=== PATIENT | female | born 1950 | race Caucasian/White ===

== ENCOUNTER 2016-11-01 01:31 | Inpatient (IN) | payer OTHER ==
[2016-11-01] VITALS (9 sets, daily range): BP systolic 93–140; BP diastolic 58–76; PULSE 55–67; TEMP 36.6–37; O2SAT 94–98; Ht 157.5 cm; Wt 74.6 kg
[~2016-11-01] VITALS: Ht 157.5 cm; Wt 74.6 kg
[2016-11-01] MEDS ORDERED: ONDANSETRON INJ 2 MG/ML 2 ML VIAL IV STA (02:03)
[2016-11-01] MEDS ORDERED: LISI-725 PO (02:03)
[2016-11-01] MEDS ORDERED: LOVA40TA4 PO (02:03)
[2016-11-01] MEDS ORDERED: KETOROLAC TROMETHAMINE 30 MG/ML VIAL IV STA (02:03)
[2016-11-01] MEDS ORDERED: GLIP-199 PO (02:03)
[2016-11-01] MEDS ORDERED: METF-384 PO (02:03)
[2016-11-01] MEDS ORDERED: SODIUM CHLORIDE 0.9% 1000ML 1,000 ML IV STA (02:04)
--- NOTE | 2016-11-01 02:11 | EMERGENCY ROOM VISIT NOTE ---
History Report prepared by Sarmad: Chris Mendez Under the Supervision of: Dr. Jayde Cordova D.O. First contact with patient: 01:54 Chief Complaint: FLU LIKE SX Stated Complaint: FLU History of Present Illness The patient is a 66 year old female who presents to the Emergency Room with complaints of a cough that began 2 weeks ago. At this time, the patient's grandson came to visit, and he had the "sniffles." Both the patient and her got sick. It progressed into a hacking productive cough and rhinorrhea. Today, she woke up with chills and diaphoresis. She then began to feel nauseated and have episodes of diarrhea. Before arrival into the ED tonight, she had 1 episode of emesis. She denies any past bronchitis, pneumonia, COPD, or inhaler use. She has a medical history of diabetes, hypertension, and hyperlipidemia. She has been eating and drinking normally. She denies any chest pain. She is also experiencing abdominal tenderness diffusely and neck pain. Source of History: patient Onset: 2 weeks ago Position: other (Respiratory System) Symptom Intensity: moderate Quality: other (Cough) Timing: other (Persistent) Associated Symptoms: + chills, + diaphoresis, + neck pain, + nausea, + vomiting, + abdominal pain, + diarrhea, No chest pain Review of Systems See HPI for pertinent positives & negatives. A total of 10 systems reviewed and were otherwise negative. Past Medical & Surgical Medical Problems: (1) Cough (2) Diabetes (3) HLD (hyperlipidemia) (4) HTN (hypertension) (5) Hypotension Family History Omitted secondary to the patient's age. Social History Smoking Status: Current Every Day Smoker Smokeless Tobacco Use: No Drug Use: none Marital Status: Housing Status: lives with significant other Current/Historical Medications Scheduled Glipizide (Glipizide Er), 5 MG PO DAILY Lisinopril (Zestril), 20 MG PO DAILY Lovastatin (Mevacor), 1 TAB PO DAILY Metformin Hcl (Glucophage), 1,000 MG PO BID Allergies Coded Allergies: No Known Allergies (Unverified , 11/01/16) Physical Exam Vital Signs Date Time Temp Pulse Resp B/P (MAP) Pulse Ox O2 Delivery O2 Flow Rate FiO2 11/01/16 04:31 116/67 11/01/16 04:30 59 21 98 8/28/17 04:01 113/59 11/01/16 04:00 65 18 97 11/01/16 03:31 90/52 11/01/16 03:30 61 20 96 11/01/16 03:20 61 18 96/51 96 Room Air 11/01/16 02:25 64 11/01/16 02:20 64 24 97 11/01/16 02:01 95 Room Air 11/01/16 02:01 81/54 11/01/16 01:49 70 18 106/61 96 Room Air 11/01/16 01:34 36.5 81 20 77/51 95 Room Air Physical Exam HEENT: Head - normocephalic and atraumatic Pupils are equal, round, and reactive to light. Extraocular eye muscles are intact, and sclera are anicteric. Nose - moist nasal mucosa without discharge. Mouth - moist buccal mucosa. Oropharynx is nonerythematous and there is no tonsillar exudate or edema noted. Neck: Supple; no JVD, nuchal rigidity, cervical lymphadenopathy. Heart: Regular rate and rhythm. There is a normal S1 and S2 with no murmurs, clicks, or gallops appreciated. Lungs: Clear to auscultation bilaterally with no wheezes, rales, or rhonchi. Abdomen: Soft, diffuse abdominal tenderness, nondistended, with good bowel sounds. There are no palpable pulsatile masses or hepatosplenomegaly. There is no guarding, rigidity, or rebound noted. Extremities: No evidence of cyanosis, clubbing, or edema. There are easily palpable peripheral pulses. Skin: warm and diaphoretic and pale with good turgor and no rashes. Medical Decision & Procedures ER Provider Diagnostic Interpretation: Radiology results as stated below per my review and the radiologist's interpretation: CHEST 1 VIEW: No pulmonary infiltrates or pleural effusions appreciated. Questionable pulmonary nodule in the left lung base. Per me Laboratory Results 11/01/16 02:15 Red Blood Count 3.49, Mean Corpuscular Volume 91.1, Mean Corpuscular Hemoglobin 30.1, Mean Corpuscular Hemoglobin Concent 33.0, Mean Platelet Volume 9.7, Neutrophils (%) (Auto) 79.0, Lymphocytes (%) (Auto) 15.7, Monocytes (%) (Auto) 3.7, Eosinophils (%) (Auto) 1.0, Basophils (%) (Auto) 0.1, Neutrophils # (Auto) 9.83, Lymphocytes # (Auto) 1.96, Monocytes # (Auto) 0.46, Eosinophils # (Auto) 0.13, Basophils # (Auto) 0.01 11/01/16 02:15 Test 11/01/16 02:14 11/01/16 02:15 11/01/16 03:41 Bedside Lactic Acid Venous 1.53 mmol/L (0.90-1.70) White Blood Count 12.45 K/uL (4.8-10.8) Red Blood Count 3.49 M/uL (4.2-5.4) Hemoglobin 10.5 g/dL (12.0-16.0) Hematocrit 31.8 % (37-47) Mean Corpuscular Volume 91.1 fL (80-100) Mean Corpuscular Hemoglobin 30.1 pg (25-34) Mean Corpuscular Hemoglobin Concent 33.0 g/dl (32-36) Platelet Count 330 K/uL (130-400) Mean Platelet Volume 9.7 fL (7.4-10.4) Neutrophils (%) (Auto) 79.0 % Lymphocytes (%) (Auto) 15.7 % Monocytes (%) (Auto) 3.7 % Eosinophils (%) (Auto) 1.0 % Basophils (%) (Auto) 0.1 % Neutrophils # (Auto) 9.83 K/uL (1.4-6.5) Lymphocytes # (Auto) 1.96 K/uL (1.2-3.4) Monocytes # (Auto) 0.46 K/uL (0.11-0.59) Eosinophils # (Auto) 0.13 K/uL (0-0.5) Basophils # (Auto) 0.01 K/uL (0-0.2) RDW Standard Deviation 45.8 fL (36.4-46.3) RDW Coefficient of Variation 13.8 % (11.5-14.5) Immature Granulocyte % (Auto) 0.5 % Immature Granulocyte # (Auto) 0.06 K/uL (0.00-0.02) Prothrombin Time 11.0 SECONDS (9.0-12.0) Prothromb Time International Ratio 1.0 (0.9-1.1) Activated Partial Thromboplast Time 23.6 SECONDS (21.0-31.0) Partial Thromboplastin Ratio 0.9 Anion Gap 8.0 mmol/L (3-11) Est Creatinine Clear Calc Drug Dose 53.2 ml/min Estimated GFR () 68.5 Estimated GFR (Non- 59.1 BUN/Creatinine Ratio 13.7 (10-20) Calcium Level 7.3 mg/dl (8.5-10.1) Total Bilirubin 0.2 mg/dl (0.2-1) Aspartate Amino Transf (AST/SGOT) 11 U/L (15-37) Alanine Aminotransferase (ALT/SGPT) 14 U/L (12-78) Alkaline Phosphatase 53 U/L (45-117) Total Creatine Kinase 52 U/L (26-192) Creatine Kinase MB 1.2 ng/ml (0.5-3.6) Creatine Kinase MB Ratio 2.3 (0-3.0) Troponin I < 0.015 ng/ml (0-0.045) Total Protein 5.8 gm/dl (6.4-8.2) Albumin 2.6 gm/dl (3.4-5.0) Globulin 3.2 gm/dl (2.5-4.0) Albumin/Globulin Ratio 0.8 (0.9-2) Urine Color DK YELLOW Urine Appearance CLOUDY (CLEAR) Urine pH 5.0 (4.5-7.5) Urine Specific [place] 1.027 (1.000-1.030) Urine Protein TRACE (NEG) Urine Glucose (UA) NEG (NEG) Urine Ketones TRACE (NEG) Urine Occult Blood NEG (NEG) Urine Nitrite NEG (NEG) Urine Bilirubin NEG (NEG) Urine Urobilinogen NEG (NEG) Urine Leukocyte Esterase MODERATE (NEG) Urine WBC (Auto) >30 /hpf (0-5) Urine RBC (Auto) 5-10 /hpf (0-4) Urine Hyaline Casts (Auto) >30 /lpf (0-5) Urine Epithelial Cells (Auto) >30 /lpf (0-5) Urine Bacteria (Auto) 1+ (NEG) Urine Pathogenic Casts /lpf (0) Laboratory results per my review. Medications Administered Medications (Trade) Dose Ordered Sig/Grzegorz Route Start Time Stop Time Status Last Admin Dose Admin Ketorolac Tromethamine (Toradol Inj) 30 mg NOW STAT IV 11/01/16 02:03 11/01/16 02:05 DC 11/01/16 02:13 30 MG Ondansetron HCl (Zofran Inj) 4 mg NOW STAT IV 11/01/16 02:03 11/01/16 02:05 DC 11/01/16 02:12 4 MG Sodium Chloride 1,000 ml @ 999 mls/hr Q1H1M STAT IV 11/01/16 02:04 11/01/16 03:04 DC 11/01/16 02:04 999 MLS/HR Sodium Chloride 500 ml @ 999 mls/hr Q31M STAT IV 11/01/16 03:25 11/01/16 03:55 DC 11/01/16 03:25 999 MLS/HR Piperacillin Sod/ Tazobactam Sod (Zosyn Iv) 4.5 gm NOW STAT IV 11/01/16 03:35 11/01/16 03:37 DC 11/01/16 03:47 4.5 GM Levofloxacin (Levaquin / D5W) 750 mg NOW ONCE IV 11/01/16 03:45 11/01/16 03:46 DC 11/01/16 03:47 750 MG Procedure Zofran Inj 4 mg IV Toradol Inj 30 mg IV Sodium Chloride 1000 ml @ 999 mls/hr IV Sodium Chloride 500 ml @ 999 mls/hr IV. Ordered Zosyn Iv 4.5 gm IV Ordered Levofloxacin 750 mg IV ECG Indication: other (Hypotension) Rate (beats per minute): 73 Rhythm: normal sinus Findings: LBBB, no acute ischemic change, no ectopy ED Course 0154: Past medical records reviewed. The patient was evaluated in room B4. A complete history and physical exam was performed. A septic protocol was performed. A twelve-lead EKG was obtained. 0203: Ordered Zofran Inj 4 mg IV, Toradol Inj 30 mg IV 0204: Ordered Sodium Chloride 1000 ml @ 999 mls/hr IV 0325: Sodium Chloride 500 ml @ 999 mls/hr IV. 0335: Ordered Zosyn Iv 4.5 gm IV. The patient's blood pressure has come up somewhat. She is resting comfortably at this time. 0345: Ordered Levofloxacin 750 mg IV 0438: Upon reevaluation, I discussed findings and results with her. She verbalized agreement of the treatment plan. [facility] The patient will be evaluated for further management and care. Medical Decision For her + situation she is in pain The patient is a 66 year old female who presents to the ED with a productive cough. Differential diagnosis includes sepsis, dehydration, pneumonia, gastroenteritis, meningitis, cardiac ischemia, and hypovolemia. Laboratory Results: White blood cell count of 12.4, hemoglobin 10.5, normal renal function, glucose 195, normal LFTs, normal coagulation studies, lactic acid 1.53, urine is dark yellow and cloudy, trace protein, trace ketones, moderate leukocyte esterase, greater than 30 white blood cells, 1+ bacteria, and greater than 30 epithelial cells. This is a 66-year-old female patient who presents to emergency department after an episode of extreme nausea and diaphoresis this morning. The patient has been suffering from a productive cough over the past couple of weeks. She describes becoming increasingly weak over the past 24 hours. She developed significant diarrhea. She then became extremely weak, diaphoretic, and nauseated. The patient was noted be significantly hypotensive. This could've been secondary to hypovolemia and/or sepsis. The patient was treated with IV crystalloid therapy. She does not have a fever but does have an elevated white blood cell count. The patient is a smoker and could be suffering from an acute lung infection. Chest x-ray was unremarkable. The patient's urine appear to be infected. She was treated with IV Zosyn and IV Levaquin. Blood pressure has rebounded after some crystalloid.[facility] and [facility] for further management. Medication Reconcilliation Current Medication List: was personally reviewed by me Blood Pressure Screening Patient's blood pressure: Low blood pressure Will be addressed as an inpatient. Consults Time Called: [phone] Consulting Physician: Dr. Bedolla - [facility] Returned Call: [phone] Discussed the patient's case. The patient will be evaluated for further management. Impression Primary Impression: Hypotension Additional Impressions: UTI (urinary tract infection) Productive cough Scribe Attestation The scribe's documentation has been prepared under my direction and personally reviewed by me in its entirety. I confirm that the note above accurately reflects all work, treatment, procedures, and medical decision making performed by me. Departure Information Dispostion Being Evaluated By Hospitalist Referrals No Doctor, Assigned (PCP) Patient Instructions My [facility] Problem Qualifiers Primary Impression: Hypotension Hypotension type: unspecified hypotension type Qualified Codes: I95.9 - Hypotension, unspecified Additional Impressions: UTI (urinary tract infection) Urinary tract infection type: acute cystitis Hematuria presence: with hematuria Qualified Codes: N30.01 - Acute cystitis with hematuria
[2016-11-01 02:31] LABS: BASO % 0.1 %; BASO ABS # 0.01 K/uL (0-0.2); COMPLETE YES; HEMATOCRIT 31.8 % (37-47); IG% 0.5 %; LYMPH % 15.7 %; LYMPH ABS # 1.96 K/uL (1.2-3.4); MEAN CELL VOLUME 91.1 fL (80-100); MEAN CORPUSCULAR HEMOGLOBIN 30.1 pg (25-34); MEAN PLATELET VOLUME 9.7 fL (7.4-10.4); MONO % 3.7 %; PLATELET COUNT 330 K/uL (130-400); RED BLOOD COUNT 3.49 M/uL (4.2-5.4); WHITE BLOOD COUNT 12.45 K/uL (4.8-10.8)
[2016-11-01 02:49] LABS: BUN/CREATININE RATIO 13.7 (10-20); CALCIUM 7.3 mg/dl (8.5-10.1); POTASSIUM 3.7 mmol/L (3.5-5.1)
[2016-11-01 02:51] LABS: PARTIAL THROMBOPLASTIN RATIO 0.9
[2016-11-01 02:52] LABS: ALB/GLOB RATIO 0.8 (0.9-2)
[2016-11-01 02:53] LABS: CKMB/CK RATIO 2.3 (0-3.0)
[2016-11-01] MEDS ORDERED: SODIUM CHLORIDE 0.9% 500ML 500 ML IV STA (03:25)
[2016-11-01] MEDS ORDERED: PIPERACILLIN/TAZOBACTAM 4.5 GM/100ML D5W IV STA (03:35)
[2016-11-01] MEDS ORDERED: LEVAQUIN 750MG / 150ML D5W IV ONE (03:45)
[2016-11-01 03:58] LABS: MANUAL MICROSCOPIC REQUIRED? NO; REVIEW REQ? YES; URINE APPEARANCE CLOUDY (CLEAR); URINE COLOR DK YELLOW; URINE EPITHELIAL CELL AUTO >30 /lpf (0-5); URINE NITRITE NEG (NEG); URINE SPECIFIC GRAVITY 1.027 (1.000-1.030); UROBILINOGEN NEG (NEG); ZZUR CULT IF INDIC CLEAN CATCH YES
[2016-11-01 04:00] LABS: URINE BILIRUBIN NEG (NEG)
[2016-11-01] MEDS ORDERED: ACETAMINOPHEN 325 MG TAB PO PRN (04:45)
[2016-11-01] MEDS ORDERED: DEXTROSE 50% 50 ML SYR IV PRN (04:45)
[2016-11-01] MEDS ORDERED: POLYETHYLENE (MIRALAX) 17 GM PACK PO PRN (04:45)
[2016-11-01] MEDS ORDERED: GLUCOSE 10 TABS/TUBE PO PRN (04:45)
[2016-11-01] MEDS ORDERED: NITROGLYCERIN 0.4 MG SL PER TAB CHARGE SL PRN (04:45)
[2016-11-01] MEDS ORDERED: MAGNESIUM HYDROXIDE SUSP 30 ML UDC PO PRN (04:45)
[2016-11-01] MEDS ORDERED: GLUCAGON FOR INJ 1 MG VIAL SQ PRN (04:45)
[2016-11-01] MEDS ORDERED: GLUCOSE 40% GEL 15 GM TUBE PO PRN (04:45)
[2016-11-01] MEDS ORDERED: ALUMINUM/MAGNESIUM/SIMETH (MAALOX MAX) 30 ML UDC PO PRN (04:45)
[2016-11-01] MEDS ORDERED: ONDANSETRON INJ 2 MG/ML 2 ML VIAL IV PRN (04:45)
--- NOTE | 2016-11-01 04:50 | History and Physical ---
History & Physical Date & Time of Service: Nov 01, 2016 at 04:45 Chief Complaint: FLU Primary Care Physician: No Doctor, Assigned History of Present Illness Source: patient this is a 66 yo F with past medical hx of HTN , type 2 Dm , presents to ED with Flu like symptom , viral illness Pt's 2 yo Grandson Had stomach flu , nasal congestion , cough 2 weeks back her had similar symptom 1 week back , now recovering pt started to URI symptom , cough , headache , fatigue, body ache 3-4 days back cough was non productive , associated with sore throat had low grade fever this AM she woke up with cold sweat , felt severely nauseous ,had multiple watery diarrhea pt was brought to ED was hypotensive in ER , tachycardic BP improved with IVF Cxray shows no infiltrate Diarrhea improved , no episode since admission no nausea or abdominal discomfort feels a lot better since getting IVF Past Medical/Surgical History Medical Problems: (1) Diabetes Status: Chronic (2) HLD (hyperlipidemia) Status: Chronic (3) HTN (hypertension) Status: Chronic Social History Smoking Status: Current Every Day Smoker Smokeless Tobacco Use: No Drug Use: none Marital Status: Allergies Coded Allergies: No Known Allergies (Unverified , 11/01/16) Home Medications Scheduled Glipizide (Glipizide Er), 5 MG PO DAILY Lisinopril (Zestril), 20 MG PO DAILY Lovastatin (Mevacor), 1 TAB PO DAILY Metformin Hcl (Glucophage), 1,000 MG PO BID Review of Systems Constitutional: + fever, + chills, + weakness, + fatigue Respiratory: + cough, + sputum, + wheezing, + shortness of breath, + dyspnea on exertion, + dyspnea at rest Abdomen: + pain, + nausea, + vomiting, + diarrhea Musculoskeletal: + joint pain, + muscle pain, + calf pain Neurologic: + numbness/tingling, + vertigo Endocrine: + fatigue Physical Exam Vital Signs Date Time Temp Pulse Resp B/P (MAP) Pulse Ox O2 Delivery O2 Flow Rate FiO2 11/01/16 03:20 61 18 96/51 96 Room Air 11/01/16 02:25 64 11/01/16 02:20 64 24 97 11/01/16 02:01 95 Room Air 11/01/16 02:01 81/54 11/01/16 01:49 70 18 106/61 96 Room Air 11/01/16 01:34 36.5 81 20 77/51 95 Room Air General Appearance: no apparent distress Head: normocephalic, atraumatic Eyes: normal inspection, sclerae normal Neck: supple, no adenopathy, thyroid normal, no JVD, no carotid bruits, trachea midline Respiratory/Chest: chest non-tender, lungs clear, normal breath sounds, no respiratory distress, no accessory muscle use Cardiovascular: regular rate, rhythm Abdomen/GI: normal bowel sounds, non tender, soft Extremities/Musculoskelatal: normal inspection, no calf tenderness, normal capillary refill, no pedal edema Neurologic/Psych: no motor/sensory deficits, alert, normal reflexes, oriented x 3 Skin: normal color, warm/dry, no rash Lymphatic: no adenopathy Diagnostics Laboratory Results Results Past 24 Hours Test 11/01/16 02:14 11/01/16 02:15 11/01/16 03:41 Range/Units Bedside Lactic Acid Venous 1.53 0.90-1.70 mmol/L White Blood Count 12.45 4.8-10.8 K/uL Red Blood Count 3.49 4.2-5.4 M/uL Hemoglobin 10.5 12.0-16.0 g/dL Hematocrit 31.8 37-47 % Mean Corpuscular Volume 91.1 80-100 fL Mean Corpuscular Hemoglobin 30.1 25-34 pg Mean Corpuscular Hemoglobin Concent 33.0 32-36 g/dl Platelet Count 330 130-400 K/uL Mean Platelet Volume 9.7 7.4-10.4 fL Neutrophils (%) (Auto) 79.0 % Lymphocytes (%) (Auto) 15.7 % Monocytes (%) (Auto) 3.7 % Eosinophils (%) (Auto) 1.0 % Basophils (%) (Auto) 0.1 % Neutrophils # (Auto) 9.83 1.4-6.5 K/uL Lymphocytes # (Auto) 1.96 1.2-3.4 K/uL Monocytes # (Auto) 0.46 0.11-0.59 K/uL Eosinophils # (Auto) 0.13 0-0.5 K/uL Basophils # (Auto) 0.01 0-0.2 K/uL RDW Standard Deviation 45.8 36.4-46.3 fL RDW Coefficient of Variation 13.8 11.5-14.5 % Immature Granulocyte % (Auto) 0.5 % Immature Granulocyte # (Auto) 0.06 0.00-0.02 K/uL Prothrombin Time 11.0 9.0-12.0 SECONDS Prothromb Time International Ratio 1.0 0.9-1.1 Activated Partial Thromboplast Time 23.6 21.0-31.0 SECONDS Partial Thromboplastin Ratio 0.9 Sodium Level 141 136-145 mmol/L Potassium Level 3.7 3.5-5.1 mmol/L Chloride Level 114 98-107 mmol/L Carbon Dioxide Level 19 21-32 mmol/L Anion Gap 8.0 3-11 mmol/L Blood Urea Nitrogen 14 7-18 mg/dl Creatinine 1.00 0.60-1.20 mg/dl Est Creatinine Clear Calc Drug Dose 53.2 ml/min Estimated GFR () 68.5 Estimated GFR (Non- 59.1 BUN/Creatinine Ratio 13.7 10-20 Random Glucose 195 70-99 mg/dl Calcium Level 7.3 8.5-10.1 mg/dl Total Bilirubin 0.2 0.2-1 mg/dl Aspartate Amino Transf (AST/SGOT) 11 15-37 U/L Alanine Aminotransferase (ALT/SGPT) 14 12-78 U/L Alkaline Phosphatase 53 45-117 U/L Total Creatine Kinase 52 26-192 U/L Creatine Kinase MB 1.2 0.5-3.6 ng/ml Creatine Kinase MB Ratio 2.3 0-3.0 Troponin I < 0.015 0-0.045 ng/ml Total Protein 5.8 6.4-8.2 gm/dl Albumin 2.6 3.4-5.0 gm/dl Globulin 3.2 2.5-4.0 gm/dl Albumin/Globulin Ratio 0.8 0.9-2 Urine Color DK YELLOW Urine Appearance CLOUDY CLEAR Urine pH 5.0 4.5-7.5 Urine Specific [place] 1.027 1.000-1.030 Urine Protein TRACE NEG Urine Glucose (UA) NEG NEG Urine Ketones TRACE NEG Urine Occult Blood NEG NEG Urine Nitrite NEG NEG Urine Bilirubin NEG NEG Urine Urobilinogen NEG NEG Urine Leukocyte Esterase MODERATE NEG Urine WBC (Auto) >30 0-5 /hpf Urine RBC (Auto) 5-10 0-4 /hpf Urine Hyaline Casts (Auto) >30 0-5 /lpf Urine Epithelial Cells (Auto) >30 0-5 /lpf Urine Bacteria (Auto) 1+ NEG Urine Pathogenic Casts 0 /lpf Microbiology Results 11/01/16 Blood Culture, Received Pending 11/01/16 Blood Culture, Received Pending 11/01/16 Urine Culture, Received Pending Diagnostic Radiology CHEST ONE VIEW PORTABLE HISTORY: Sepsis COMPARISON: None. FINDINGS: The lungs are clear. Cardiac silhouette is normal in size. No pleural effusions. No pneumothorax. IMPRESSION: No acute process. No Infiltrate, No Effusion EKG Vent. rate 73 BPM IN interval 142 ms QRS duration 128 ms QT/QTc 436/480 ms P-R-T axes 61 -28 75 Normal sinus rhythm Left bundle branch block Abnormal ECG No previous ECGs available Impression Assessment and Plan COUGH /FLU LIKE SYMPTOM : had dry non productive cough with low grade fever , nausea , poor appetite for 2 weeks Grand son had similar symptom Cxray no infiltrate , pt is at present fever free , symptom has improved Abx can be discontinued in next 24 hrs if pt continues to do well HYPOTENSION : due to above associated with poor PO intake , dehydration BP improved after IV fluid bolus in ED hold lisinopril no acute renal function noted cont IVF NSS @ 100 ml/hr monitor pt in tele TYPE 2 DM : hold oral hypoglycemic agents insulin SSO ordered Hb A1c in AM labs PROBABLE UTI ; UA positive ordered for urine culture on Zosyn HTN : presented with Hypotension requiring IV fluid hold ACEI monitor in tele HYPERLIPIDEMIA : cont Mevacor FULL CODE DVT PROPHYLAXIS : Sub q heparin DISPOSITION ; expected to be discharged home when medically stable PT/OT eval prior to discharge home Level of Care Telemetry Resuscitation Status FULL RESUSCITATION VTE Prophylaxis VTE Risk Assessment Done? Y/N: Yes Risk Level: Moderate Given or contraindicated: Unfractionated heparin SQ
[2016-11-01] MEDS ORDERED: PIPERACILL/TAZOBAC CONSULT ACTIVE PRN (05:15)
[2016-11-01] MEDS: HEPARIN SOD 5000 UNIT/0.5 ML CARP SQ SCH ×3 (06:00→20:42)
[2016-11-01] MEDS: SODIUM CHLORIDE 0.9% 1000ML 1,000 ML IV SCH ×2 (06:14→17:55)
--- NOTE | 2016-11-01 07:08 | DIAGNOSTIC IMAGING REPORT ---
CHEST ONE VIEW PORTABLE HISTORY: Sepsis COMPARISON: None. FINDINGS: The lungs are clear. Cardiac silhouette is normal in size. No pleural effusions. No pneumothorax. IMPRESSION: No acute process. Electronically signed by: Caio Rodas M.D. 11/01/2016 7:07 AM Dictated Date/Time: 11/01/2016 7:05 AM
[2016-11-01] MEDS: PIPERACILL/TAZOBAC IV 3.375 GM in DEXTROSE 5% 100ML 100 ML IV SCH ×3 (07:48→23:57)
[2016-11-01 07:56] LABS: ESTIMATED AVERAGE GLUCOSE 174 mg/dl; HA1C FLAG Normal (Normal)
[2016-11-01] MEDS: INSULIN ASPART 100 UNITS/ML 3 ML PEN SC SCH ×4 (08:15→20:42)
--- NOTE | 2016-11-01 10:42 | Progress Note ---
Internal Med Progress Note Date of Service: Nov 01, 2016. Provider Documentation: SUBJECTIVE: yesterday was not net feeling well was nauseous and had vomiting had cough and abdominal discomfort but feeling better today afebrile ate breakfast resting comfortably OBJECTIVE: Vital Signs-as noted below Exam: General-alert and oriented. Not in distress ENT-normal hearing Neck-no neck masses Lungs-cta b/l no wheezing or crackles Heart-s1 and s2 heard regular rate and rhythm, no murmurs Abdomen-soft bowel sounds present non tender no distension Extremities no edema no erythema Neuro-alert and oriented moves extremities Lab data as noted below. ASSESSMENT & PLAN: COUGH /FLU LIKE SYMPTOM : had dry non productive cough with low grade fever , nausea , poor appetite for 2 weeks Cxray no infiltrate , await cx on iv zosyn improving continue same. Hypotension due to above associated with poor PO intake , dehydration BP improved with fluids holding lisinopril will monitor TYPE 2 DM : holding oral hypoglycemic agents on lantus and iss Hb A1c 7.7 will monitor PROBABLE UTI ; UA positive await urine culture on Zosyn HTN : presented with Hypotension requiring IV fluid holding ACEI monitor in tele HYPERLIPIDEMIA : on Mevacor FULL CODE DVT PROPHYLAXIS : Sub q heparin DISPOSITION to be determined Vital Signs: Date Time Temp Pulse Resp B/P (MAP) Pulse Ox O2 Delivery O2 Flow Rate FiO2 11/01/16 08:00 97 Room Air 11/01/16 07:21 36.7 55 18 93/58 (70) 97 Room Air 11/01/16 05:26 36.8 56 16 114/70 96 Room Air 11/01/16 05:14 70 17 105/62 98 11/01/16 04:31 116/67 11/01/16 04:30 59 21 98 11/01/16 04:01 113/59 11/01/16 04:00 65 18 97 11/01/16 03:31 90/52 11/01/16 03:30 61 20 96 11/01/16 03:20 61 18 96/51 96 Room Air 11/01/16 02:25 64 11/01/16 02:20 64 24 97 11/01/16 02:01 95 Room Air 11/01/16 02:01 81/54 11/01/16 01:49 70 18 106/61 96 Room Air 11/01/16 01:34 36.5 81 20 77/51 95 Room Air Lab Results: Results Past 24 Hours Test 11/01/16 02:14 11/01/16 02:15 11/01/16 03:41 11/01/16 06:23 Range/Units Bedside Lactic Acid Venous 1.53 0.90-1.70 mmol/L White Blood Count 12.45 4.8-10.8 K/uL Red Blood Count 3.49 4.2-5.4 M/uL Hemoglobin 10.5 12.0-16.0 g/dL Hematocrit 31.8 37-47 % Mean Corpuscular Volume 91.1 80-100 fL Mean Corpuscular Hemoglobin 30.1 25-34 pg Mean Corpuscular Hemoglobin Concent 33.0 32-36 g/dl Platelet Count 330 130-400 K/uL Mean Platelet Volume 9.7 7.4-10.4 fL Neutrophils (%) (Auto) 79.0 % Lymphocytes (%) (Auto) 15.7 % Monocytes (%) (Auto) 3.7 % Eosinophils (%) (Auto) 1.0 % Basophils (%) (Auto) 0.1 % Neutrophils # (Auto) 9.83 1.4-6.5 K/uL Lymphocytes # (Auto) 1.96 1.2-3.4 K/uL Monocytes # (Auto) 0.46 0.11-0.59 K/uL Eosinophils # (Auto) 0.13 0-0.5 K/uL Basophils # (Auto) 0.01 0-0.2 K/uL RDW Standard Deviation 45.8 36.4-46.3 fL RDW Coefficient of Variation 13.8 11.5-14.5 % Immature Granulocyte % (Auto) 0.5 % Immature Granulocyte # (Auto) 0.06 0.00-0.02 K/uL Prothrombin Time 11.0 9.0-12.0 SECONDS Prothromb Time International Ratio 1.0 0.9-1.1 Activated Partial Thromboplast Time 23.6 21.0-31.0 SECONDS Partial Thromboplastin Ratio 0.9 Sodium Level 141 136-145 mmol/L Potassium Level 3.7 3.5-5.1 mmol/L Chloride Level 114 98-107 mmol/L Carbon Dioxide Level 19 21-32 mmol/L Anion Gap 8.0 3-11 mmol/L Blood Urea Nitrogen 14 7-18 mg/dl Creatinine 1.00 0.60-1.20 mg/dl Est Creatinine Clear Calc Drug Dose 53.2 ml/min Estimated GFR () 68.5 Estimated GFR (Non- 59.1 BUN/Creatinine Ratio 13.7 10-20 Random Glucose 195 70-99 mg/dl Calcium Level 7.3 8.5-10.1 mg/dl Total Bilirubin 0.2 0.2-1 mg/dl Aspartate Amino Transf (AST/SGOT) 11 15-37 U/L Alanine Aminotransferase (ALT/SGPT) 14 12-78 U/L Alkaline Phosphatase 53 45-117 U/L Total Creatine Kinase 52 26-192 U/L Creatine Kinase MB 1.2 0.5-3.6 ng/ml Creatine Kinase MB Ratio 2.3 0-3.0 Troponin I < 0.015 0-0.045 ng/ml Total Protein 5.8 6.4-8.2 gm/dl Albumin 2.6 3.4-5.0 gm/dl Globulin 3.2 2.5-4.0 gm/dl Albumin/Globulin Ratio 0.8 0.9-2 Urine Color DK YELLOW Urine Appearance CLOUDY CLEAR Urine pH 5.0 4.5-7.5 Urine Specific [place] 1.027 1.000-1.030 Urine Protein TRACE NEG Urine Glucose (UA) NEG NEG Urine Ketones TRACE NEG Urine Occult Blood NEG NEG Urine Nitrite NEG NEG Urine Bilirubin NEG NEG Urine Urobilinogen NEG NEG Urine Leukocyte Esterase MODERATE NEG Urine WBC (Auto) >30 0-5 /hpf Urine RBC (Auto) 5-10 0-4 /hpf Urine Hyaline Casts (Auto) >30 0-5 /lpf Urine Epithelial Cells (Auto) >30 0-5 /lpf Urine Bacteria (Auto) 1+ NEG Urine Pathogenic Casts 0 /lpf Estimated Average Glucose 174 mg/dl Hemoglobin A1c 7.7 4.5-5.6 % Hepatitis C Antibody Screen NEG NEG Test 11/01/16 07:46 11/01/16 08:00 Range/Units Bedside Glucose 149 70-90 mg/dl Influenza Type A Antigen Neg for Influ A NEG Influenza Type B Antigen Neg for Influ B NEG Microbiology Results 11/01/16 Blood Culture, Received Pending 11/01/16 Blood Culture, Received Pending 11/01/16 MRSA DNA Surveillance Screen - Final, Complete Specimen Negative for MRSA by DNA Probe 11/01/16 Urine Culture, Received Pending
[2016-11-01] MEDS: INSULIN GLARGINE SOLOSTAR 100 UNITS/ML 3 ML PEN SC SCH (20:41)
[2016-11-02] VITALS (7 sets, daily range): BP systolic 127–147; BP diastolic 62–84; PULSE 51–70; TEMP 36.5–37.1; O2SAT 95–98
[2016-11-02] MEDS: HEPARIN SOD 5000 UNIT/0.5 ML CARP SQ SCH ×3 (05:37→21:49)
[2016-11-02] MEDS: SODIUM CHLORIDE 0.9% 1000ML 1,000 ML IV SCH ×2 (05:59→20:44)
[2016-11-02 07:10] LABS: HEMATOCRIT 28.1 % (37-47); MEAN CELL VOLUME 88.9 fL (80-100); MEAN CORPUSCULAR HEMOGLOBIN 29.1 pg (25-34); MEAN CORPUSCULAR HGB CONC 32.7 g/dl (32-36); MEAN PLATELET VOLUME 9.7 fL (7.4-10.4); PLATELET COUNT 337 K/uL (130-400); RED BLOOD COUNT 3.16 M/uL (4.2-5.4); WHITE BLOOD COUNT 5.48 K/uL (4.8-10.8)
[2016-11-02 07:28] LABS: BUN/CREATININE RATIO 12.2 (10-20); CALCIUM 7.9 mg/dl (8.5-10.1); CREATININE 1.4 mg/dl (0.60-1.20); POTASSIUM 4.2 mmol/L (3.5-5.1)
[2016-11-02] MEDS: PIPERACILL/TAZOBAC IV 3.375 GM in DEXTROSE 5% 100ML 100 ML IV SCH ×2 (08:11→15:32)
[2016-11-02] MEDS: INSULIN ASPART 100 UNITS/ML 3 ML PEN SC SCH ×4 (08:15→21:47)
--- NOTE | 2016-11-02 10:38 | DIAGNOSTIC IMAGING REPORT ---
RENAL ULTRASOUND HISTORY: Acute renal failure. Assess for obstruction. COMPARISON: None. FINDINGS: Right kidney: 9.9 cm. No hydronephrosis. Normal corticomedullary differentiation and cortical thickness. Left kidney: Limited visualization but appears to measure 9.2 cm. No hydronephrosis. Normal corticomedullary differentiation and cortical thickness. Bladder: Bladder was not visualized due to decompression. IMPRESSION: No hydronephrosis. The bladder was not visualized due to decompression. Electronically signed by: Caio Rodas M.D. 11/02/2016 10:36 AM Dictated Date/Time: 11/02/2016 10:35 AM
--- NOTE | 2016-11-02 11:01 | Progress Note ---
Internal Med Progress Note Date of Service: Nov 02, 2016. Provider Documentation: SUBJECTIVE: resting comfortably no fevers eating ok mild abdominal discomfort no nausea had normal bowel movements cough improving OBJECTIVE: Vital Signs-as noted below Exam: General-alert and oriented. Not in distress ENT-normal hearing Neck-no neck masses Lungs-cta b/l no wheezing or crackles Heart-s1 and s2 heard regular rate and rhythm, no murmurs Abdomen-soft bowel sounds present non tender no distension Extremities no edema no erythema Neuro-alert and oriented moves extremities Lab data as noted below. ASSESSMENT & PLAN: COUGH /FLU LIKE SYMPTOM : had dry non productive cough with low grade fever , nausea , poor appetite for 2 weeks Cxray no infiltrate , await cx on iv zosyn improving will add azithromycin for possible bronchitis. Hypotension due to above associated with poor PO intake , dehydration BP improved with fluids holding lisinopril resolved TYPE 2 DM : holding oral hypoglycemic agents on lantus and iss Hb A1c 7.7 will monitor PROBABLE UTI ; UA positive awaiting urine culture on Zosyn ARf presented with cr 1.0 cr 1.3 today- from uti? lisinopril on hold renal us unremarkable f/u labs in am HTN : presented with Hypotension requiring IV fluid holding ACEI monitor in tele HYPERLIPIDEMIA : on Mevacor FULL CODE DVT PROPHYLAXIS : Sub q heparin DISPOSITION pt/ot possible d/c in am if stable Vital Signs: Date Time Temp Pulse Resp B/P (MAP) Pulse Ox O2 Delivery O2 Flow Rate FiO2 11/02/16 08:00 95 Room Air 11/02/16 07:25 36.9 51 18 137/79 (98) 95 Room Air 11/02/16 04:54 36.7 56 20 132/76 (94) 98 Room Air 11/02/16 04:00 Room Air 11/02/16 00:00 Room Air 11/01/16 23:58 37.0 67 20 128/72 (90) 95 Room Air 11/01/16 21:06 36.7 57 18 131/76 (94) 98 Room Air 11/01/16 20:00 Room Air 11/01/16 16:00 97 Room Air 11/01/16 15:51 36.7 64 18 140/62 (88) 97 Room Air 11/01/16 12:08 97 Room Air 11/01/16 11:33 36.8 57 17 114/75 (88) 97 Room Air Lab Results: Results Past 24 Hours Test 11/01/16 11:44 11/01/16 16:29 11/01/16 20:38 11/02/16 06:43 Range/Units Bedside Glucose 109 146 96 70-90 mg/dl White Blood Count 5.48 4.8-10.8 K/uL Red Blood Count 3.16 4.2-5.4 M/uL Hemoglobin 9.2 12.0-16.0 g/dL Hematocrit 28.1 37-47 % Mean Corpuscular Volume 88.9 80-100 fL Mean Corpuscular Hemoglobin 29.1 25-34 pg Mean Corpuscular Hemoglobin Concent 32.7 32-36 g/dl RDW Standard Deviation 45.8 36.4-46.3 fL RDW Coefficient of Variation 13.8 11.5-14.5 % Platelet Count 337 130-400 K/uL Mean Platelet Volume 9.7 7.4-10.4 fL Sodium Level 141 136-145 mmol/L Potassium Level 4.2 3.5-5.1 mmol/L Chloride Level 113 98-107 mmol/L Carbon Dioxide Level 23 21-32 mmol/L Anion Gap 5.0 3-11 mmol/L Blood Urea Nitrogen 17 7-18 mg/dl Creatinine 1.40 0.60-1.20 mg/dl Est Creatinine Clear Calc Drug Dose 37.9 ml/min Estimated GFR () 45.6 Estimated GFR (Non- 39.3 BUN/Creatinine Ratio 12.2 10-20 Random Glucose 126 70-99 mg/dl Calcium Level 7.9 8.5-10.1 mg/dl Test 11/02/16 07:38 Range/Units Bedside Glucose 135 70-90 mg/dl
[2016-11-02] MEDS ORDERED: AZITHROMYCIN 250 MG TAB PO STA (11:15)
[2016-11-02] MEDS ORDERED: LOVASTATIN 40 MG PO SCH (21:00)
[2016-11-02] MEDS: INSULIN GLARGINE SOLOSTAR 100 UNITS/ML 3 ML PEN SC SCH (21:48)
[2016-11-03] MEDS: PIPERACILL/TAZOBAC IV 3.375 GM in DEXTROSE 5% 100ML 100 ML IV SCH ×3 (00:42→15:44)
[2016-11-03 01:07] VITALS: BP 145/79; PULSE 55; TEMP 36.7; O2SAT 98
[2016-11-03 04:26] VITALS: BP 148/80; PULSE 65; TEMP 36.7; O2SAT 96
[2016-11-03] MEDS: HEPARIN SOD 5000 UNIT/0.5 ML CARP SQ SCH ×2 (05:39→13:35)
[2016-11-03 05:57] LABS: BUN/CREATININE RATIO 10.4 (10-20); CALCIUM 8.1 mg/dl (8.5-10.1); CREATININE 1.3 mg/dl (0.60-1.20); POTASSIUM 4.1 mmol/L (3.5-5.1); TOTAL IRON BINDING CAPACITY 303 mcg/dl (250-450)
[2016-11-03 06:02] LABS: FERRITIN 38.2 ng/ml (8.0-388.0)
[2016-11-03 07:44] VITALS: BP 149/72; PULSE 61; TEMP 36.8; O2SAT 100
[2016-11-03] MEDS: INSULIN ASPART 100 UNITS/ML 3 ML PEN SC SCH ×3 (08:25→16:30)
[2016-11-03] MEDS ORDERED: AZITHROMYCIN 250 MG TAB PO SCH (09:00)
[2016-11-03] MEDS: SODIUM CHLORIDE 0.9% 1000ML 1,000 ML IV SCH (10:01)
[2016-11-03 12:03] VITALS: BP 158/80; PULSE 61; TEMP 36.8; O2SAT 100
--- NOTE | 2016-11-03 15:59 | Progress Note ---
Internal Med Progress Note Date of Service: Nov 03, 2016. Provider Documentation: SUBJECTIVE: resting comfortably had couple of bowel movements yesterday and one today and somewhat lose no blood in stool or black stools afebrile eating fine no nausea or abdominal pain OBJECTIVE: Vital Signs-as noted below Exam: General-alert and oriented. Not in distress ENT-normal hearing Neck-no neck masses Lungs-cta b/l no wheezing or crackles Heart-s1 and s2 heard regular rate and rhythm, no murmurs Abdomen-soft bowel sounds present non tender no distension Extremities no edema no erythema Neuro-alert and oriented moves extremities Lab data as noted below. ASSESSMENT & PLAN: COUGH /FLU LIKE SYMPTOM : had dry non productive cough with low grade fever , nausea , poor appetite for 2 weeks Cxray no infiltrate , await cx on iv zosyn improving will add azithromycin for possible bronchitis. improving Hypotension sepsis ruled out due to above associated with poor PO intake , dehydration BP improved with fluids holding lisinopril resolved TYPE 2 DM : holding oral hypoglycemic agents on lantus and iss Hb A1c 7.7 will monitor PROBABLE UTI ; hx of recurrent uti UA positive awaiting urine culture on Zosyn will d/c on cefuroxime ARf presented with cr 1.0 cr 1.3 today- from uti? lisinopril on hold renal us unremarkable f/u labs with pcp HTN : presented with Hypotension requiring IV fluid holding ACEI monitor in tele HYPERLIPIDEMIA : on Mevacor FULL CODE DVT PROPHYLAXIS : Sub q heparin DISPOSITION pt/ot possible d/c today Vital Signs: Date Time Temp Pulse Resp B/P (MAP) Pulse Ox O2 Delivery O2 Flow Rate FiO2 11/03/16 12:03 36.8 61 16 158/80 (106) 100 Room Air 11/03/16 11:44 Room Air 11/03/16 07:45 Room Air 11/03/16 07:44 36.8 61 16 149/72 (97) 100 Room Air 11/03/16 04:26 36.7 65 20 148/80 (102) 96 Room Air 11/03/16 01:07 36.7 55 20 145/79 (101) 98 Room Air 11/03/16 00:00 Room Air 11/02/16 20:22 37.1 63 20 147/84 (105) 97 Room Air 11/02/16 20:00 Room Air 11/02/16 16:00 Room Air Lab Results: Results Past 24 Hours Test 11/02/16 17:05 11/02/16 21:27 11/03/16 00:00 11/03/16 05:13 Range/Units Bedside Glucose 182 141 70-90 mg/dl Stool Occult Blood POSITIVE NEGATIVE Hemoglobin 9.3 12.0-16.0 g/dL Hematocrit 27.0 37-47 % Sodium Level 142 136-145 mmol/L Potassium Level 4.1 3.5-5.1 mmol/L Chloride Level 114 98-107 mmol/L Carbon Dioxide Level 24 21-32 mmol/L Anion Gap 4.0 3-11 mmol/L Blood Urea Nitrogen 14 7-18 mg/dl Creatinine 1.30 0.60-1.20 mg/dl Est Creatinine Clear Calc Drug Dose 40.8 ml/min Estimated GFR () 49.9 Estimated GFR (Non- 43.0 BUN/Creatinine Ratio 10.4 10-20 Random Glucose 105 70-99 mg/dl Calcium Level 8.1 8.5-10.1 mg/dl Iron Level 38 35-150 mcg/dl Total Iron Binding Capacity 303 250-450 mcg/dl Transferrin 250 200-360 mg/dl Transferrin % Saturation 11 15-50 % Ferritin 38.2 8.0-388.0 ng/ml Vitamin B12 Level 266 211-911 pg/mL Folate 23.02 >5.38 ng/mL Test 11/03/16 07:49 11/03/16 11:44 Range/Units Bedside Glucose 110 179 70-90 mg/dl Microbiology Results 11/03/16 C.difficile Toxin B Gene (PCR), Received Pending
[2016-11-03 16:01] VITALS: BP 161/82; PULSE 64; TEMP 36.9; O2SAT 94
[2016-11-03] MEDS ORDERED: CEFU1TAB36 PO (16:23)
[2016-11-03] MEDS ORDERED: ZTHM250 PO (16:23)
--- NOTE | 2016-11-03 16:25 | Discharge Instructions ---
Discharge Instructions Date of Service Nov 03, 2016. Admission Reason for Admission: Cough, Hypotension Discharge Discharge Diagnosis / Problem: bronchitis? uti? Discharge Goals Goal(s): Decrease discomfort, Improve function Activity Recommendations Activity Limitations: resume your previous activity . Instructions / Follow-Up Instructions / Follow-Up FOLLOWUP WITH FAMILY DOCTOR IN ONE WEEK HOLD METFORMIN UNTIL SEEN BY FAMILY DOCTOR WITH FOLLOWUP LABS FOR KIDNEY FUNCTION. LAB: BMP IN 4-5 DAYS AND FOLLOW RESULTS WITH FAMILY DOCTOR. FOLLOWUP WITH FAMILY DOCTOR FOR ANEMIA WORKUP STOOL WAS POSITIVE FOR OCCULT BLOOD. NEEDS COLONOSCOPY AND UPPER ENDOSCOPY. IRON PILLS PER FAMILY DOCTOR. Current Hospital Diet Patient's current hospital diet: AHA Diet (Heart Healthy), Diabetes Type 2 Diet Discharge Diet Recommended Diet: AHA Diet (Heart Healthy) Pending Studies Studies pending at discharge: no Laboratory Results Hemoglobin A1c Test 11/01/16 06:23 Range/Units Estimated Average Glucose 174 mg/dl Hemoglobin A1c 7.7 H 4.5-5.6 % Medical Emergencies . Who to Call and When: Medical Emergencies: If at any time you feel your situation is an emergency, please call 911 immediately. . Non-Emergent Contact Non-Emergency issues call your: Primary Care Provider . . "Provider Documentation" section prepared by John Chandler. . VTE Core Measure Inpt VTE Proph given/why not?: Unfractionated heparin SQ
[2016-11-03 16:31] VITALS: BP 161/82; PULSE 64; TEMP 36.9; O2SAT 94
--- NOTE | 2016-11-03 18:44 | Discharge Summary ---
Discharge Summary Date of Service Nov 03, 2016. Discharge Summary Admission Date: Nov 01, 2016 at 04:40 Discharge Date: Nov 03, 2016 Discharge Disposition: Home Principal Diagnosis: BRONCHITIS UTI? ARF Secondary Diagnoses/Problems: (1) Diabetes Status: Chronic (2) HLD (hyperlipidemia) Status: Chronic (3) HTN (hypertension) Status: Chronic Procedures: CXR: No acute process. RENAL US:'No hydronephrosis. The bladder was not visualized due to decompression. Medication Reconciliation New Medications: Cefuroxime Axetil (Cefuroxime Axetil) 500 Mg Tab 1 TAB PO BID for 4 Days, #8 TAB Azithromycin (Azithromycin) 250 Mg Tab 250 MG PO QAM for 3 Days, #3 TAB Continued Medications: Glipizide (Glipizide Er) 10 Mg Tab 5 MG PO DAILY, 1 Refill Lisinopril (Zestril) 20 Mg Tab 20 MG PO DAILY Lovastatin (Mevacor) Unknown Strength Tab 1 TAB PO DAILY Metformin Hcl (Glucophage) 1,000 Mg Tab 1000 MG PO BID Admission Information HPI (per Admitting provider): this is a 66 yo F with past medical hx of HTN , type 2 Dm , presents to ED with Flu like symptom , viral illness Pt's 2 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 Had stomach flu , nasal congestion , cough 2 weeks back her had similar symptom 1 week back , now recovering pt started to URI symptom , cough , headache , fatigue, body ache 3-4 days back cough was non productive , associated with sore throat had low grade fever this AM she woke up with cold sweat , felt severely nauseous ,had multiple watery diarrhea pt was brought to ED was hypotensive in ER , tachycardic BP improved with IVF Cxray shows no infiltrate Diarrhea improved , no episode since admission no nausea or abdominal discomfort feels a lot better since getting IVF Physical Exam (per Admitting): General Appearance: no apparent distress Head: normocephalic, atraumatic Eyes: normal inspection, sclerae normal Neck: supple, no adenopathy, thyroid normal, no JVD, no carotid bruits, trachea midline Respiratory/Chest: chest non-tender, lungs clear, normal breath sounds, no respiratory distress, no accessory muscle use Cardiovascular: regular rate, rhythm Abdomen/GI: normal bowel sounds, non tender, soft Extremities/Musculoskelatal: normal inspection, no calf tenderness, normal capillary refill, no pedal edema Neurologic/Psych: no motor/sensory deficits, alert, normal reflexes, oriented x 3 Skin: normal color, warm/dry, no rash Lymphatic: no adenopathy Hospital Course COUGH /FLU LIKE SYMPTOM : had dry non productive cough with low grade fever , nausea , poor appetite for 2 weeks Cxray no infiltrate , await cx on iv zosyn improving will add azithromycin for possible bronchitis. improving ADVISED FOR SMOKING CESSATION F/U WITH PCP Hypotension sepsis ruled out due to above associated with poor PO intake , dehydration BP improved with fluids holding lisinopril resolved TYPE 2 DM : holding oral hypoglycemic agents on lantus and iss Hb A1c 7.7 F/U WITH PCP PROBABLE UTI ; hx of recurrent uti UA positive awaiting urine culture on Zosyn will d/c on cefuroxime ARf presented with cr 1.0 cr 1.3 today- from uti? lisinopril on hold renal us unremarkable f/u labs with pcp ADVISED TO HOLD METFORMIN UNTIL F/U WITH PCP WITH LABS HTN : presented with Hypotension requiring IV fluid holding ACEI D/C ON HOME MEDS F/U WITH PCP HYPERLIPIDEMIA : on Mevacor DISCHARGED HOME Total time spent on discharge = 35MINUTES This includes examination of the patient, discharge planning, medication reconciliation, and communication with other providers. Discharge Instructions Discharge Instructions Date of Service Nov 03, 2016. Admission Reason for Admission: Cough, Hypotension Discharge Discharge Diagnosis / Problem: bronchitis? uti? Discharge Goals Goal(s): Decrease discomfort, Improve function Activity Recommendations Activity Limitations: resume your previous activity . Instructions / Follow-Up Instructions / Follow-Up FOLLOWUP WITH FAMILY DOCTOR IN ONE WEEK HOLD METFORMIN UNTIL SEEN BY FAMILY DOCTOR WITH FOLLOWUP LABS FOR KIDNEY FUNCTION. LAB: BMP IN 4-5 DAYS AND FOLLOW RESULTS WITH FAMILY DOCTOR. FOLLOWUP WITH FAMILY DOCTOR FOR ANEMIA WORKUP STOOL WAS POSITIVE FOR OCCULT BLOOD. NEEDS COLONOSCOPY AND UPPER ENDOSCOPY. IRON PILLS PER FAMILY DOCTOR. Current Hospital Diet Patient's current hospital diet: AHA Diet (Heart Healthy), Diabetes Type 2 Diet Discharge Diet Recommended Diet: AHA Diet (Heart Healthy) Pending Studies Studies pending at discharge: no Laboratory Results Hemoglobin A1c Test 11/01/16 06:23 Range/Units Estimated Average Glucose 174 mg/dl Hemoglobin A1c 7.7 H 4.5-5.6 % Medical Emergencies . Who to Call and When: Medical Emergencies: If at any time you feel your situation is an emergency, please call 911 immediately. . Non-Emergent Contact Non-Emergency issues call your: Primary Care Provider
== END 2016-11-03 17:00 | disposition home or self-care (01) | DRG 690 ==
LOC: C.EDB 01:32 → C.MED 04:40 → ENRESERV 05:08
PROVIDERS: ADMIT Hospitalist; ATTEND Internal Medicine
DX: N39.0 Urinary tract infection, site not specified (principal); N17.9 Acute kidney failure, unspecified; J40 Bronchitis, not specified as acute or chronic; E11.9 Type 2 diabetes mellitus without complications; F17.210 Nicotine dependence, cigarettes, uncomplicated; E78.5 Hyperlipidemia, unspecified; I10 Essential (primary) hypertension; I95.9 Hypotension, unspecified; B34.9 Viral infection, unspecified; R63.8 Other symptoms and signs concerning food and fluid intake; Z79.899 Other long term (current) drug therapy; Z79.84 Long term (current) use of oral hypoglycemic drugs

== ENCOUNTER 2023-05-09 19:28 | Inpatient (IN) ==
[2023-05-09] MEDS ORDERED: 0.2 MICRON FILTER SET 1 EACH IV STA (19:44)
[2023-05-09] MEDS: AMIODARONE 150MG / 100ML D5W IV ONE (19:51)
[2023-05-09] MEDS: MAGNESIUM SULFATE 1GM / D5W BAG IV ONE (19:51)
[2023-05-09] MEDS: MAGNESIUM SULFATE 1GM / D5W BAG IV STA (19:52)
[2023-05-09] MEDS: AMIODARONE / D5W 150 MG/100 ML BAG IV STA (19:53)
[2023-05-09] MEDS: AMIODARONE / D5W 360 MG/200 ML BAG IV ONE (19:57)
[2023-05-09] MEDS: AMIODARONE IV BOLUS & DRIP IV STA (19:58)
[2023-05-09] MEDS: STAT IV Infusion **Titration per Protocol STA (19:58)
[2023-05-09 20:08] LABS: Hematocrit (blood only) 36.8 % (37.0-47.0); Hemoglobin 12.2 g/dl (12.0-16.0); Mean Corpuscular Hgb Conc 33.2 g/dL (32.0-36.0); Mean Corpuscular Volume 87.6 fL (80.0-100.0); Mean Platelet Volume 10.2 fL (9.4-12.4); Platelet Count 360 K/uL (130-400); RDW Coefficient of Variation 13.9 % (11.5-14.5); RDW Standard Deviation 44.7 fL (36.4-46.3); White Blood Count 20.91 K/ul (4.8-10.8)
[2023-05-09 20:17] LABS: Albumin Level 3.9 gm/dl (3.4-5.0); BUN Creatinine Ratio 15.5 (10-20); Bilirubin,Total 0.6 mg/dl (0.2-1.0); Calcium 8.7 mg/dl (8.6-10.3); Creatinine Clr Calc Pharmacy 35.5 ml/min; Est GFR (African American) 42.7 ml/min; Est GFR (Non-African American) 36.8 ml/min; Globulin 4.1 gm/dl (2.5-4.0); Magnesium 1.4 mg/dl (1.7-2.4)
[2023-05-09 20:27] LABS: Troponin I High Sensitivity 146.8 pg/ml (0-14)
[2023-05-09 20:33] LABS: Thyroid Stimulating Hormone 1.076 uIu/ml (0.300-4.500)
[2023-05-09 20:35] LABS: Basophils # (auto) 0.08 K/uL (0.00-0.20); Basophils % (auto) 0.4 %; Eosinophils # (auto) 0.01 K/uL (0.00-0.50); Immature Granulocytes # (auto) 0.13 K/uL (0.01-0.20); Immature Granulocytes % (auto) 0.6 %; Lymphocytes # (auto) 0.75 K/uL (1.20-3.40); Lymphocytes % (auto) 3.6 %; Monocytes # (auto) 0.96 K/uL (0.11-0.59); Monocytes % (auto) 4.6 %; Neutrophils # (auto) 18.98 K/uL (1.40-6.50); Neutrophils % (auto) 90.8 %
[2023-05-09] MEDS: OPTIRAY 320 125ml IV ONE (20:42)
--- NOTE | 2023-05-09 21:02 | Emergency Department Note ---
Impression & Plan Pneumonia, Tachycardia ED Provider Note NAME: HILTON RINALDI AGE: 73 SEX: F : 1950 ARRIVES VIA: Ambulance INFORMANT: Patient, ED PROVIDER(S): Neri Ramos MD CHIEF COMPLAINT: Respiratory distress HPI: This is a 73-year-old female history of diabetes, emphysema, hypertension, hyperlipidemia presenting for respiratory distress and tachycardia. Patient was in her yard today doing yard work when she noted she felt extremely short of breath. She felt unable to breathe and was wheezing. She called EMS and they found her with oxygen saturation in the 80s. She was significant tachycardic. EMS noticed a wide-complex tachycardia. She given oxygen with improvement in her oxygenation and she was able to then speak and had a elevated blood pressure in the 200s initially. She was given aspirin 324 mg as well as nitro. On repeat assessment her work breathing was improving and her blood pressure is now 180s. On arrival to the emergency department, she was still in respiratory distress, mild. She was able to tell me that she was in her yard that she feels somewhat better now. She is still tachycardic today. Otherwise she is diffusely wheezing. no current chest pain, leg swelling, leg pain, history of blood clots. ROS: See above HPI for pertinent positives & negatives. A total of 10 systems reviewed and were otherwise negative. PAST MEDICAL HISTORY: See Below PAST SURGICAL HISTORY: See Below FAMILY HISTORY: See Below SOCIAL HISTORY: See Below HOME MEDICATIONS: See Below ALLERGIES: See Below VITALS: See Below PHYSICAL EXAMINATION: General: resting comfortably in no acute distress Head: Normocephalic and atraumatic Eyes: Normal inspection, extraocular muscles intact Ear, nose, throat: Normal external exam Neck: Normal range of motion Respiratory: lungs clear to auscultation bilaterally Cardiovascular: Regular rate/rhythm, no murmur GI: soft, nontender, no guarding or rebound Extremities: nontender, moves all extremities Neuro: The patient awake and alert, appropriately conversive, no focal deficits, symmetric faces Skin: Warm, dry, and intact MEDICAL DECISION MAKING: This is a 73-year-old female with history of diabetes, edema, hypertension, hyperlipidemia presenting for Rester distress/tachycardia. Patient does have, tachycardia concerning for ventricular tachycardia with a rate about 156 as independent interpreted by me. Give amiodarone due to unclear wide-complex tachycardia at this time. Patient is currently talking without chest pain, not unstable with a pressure in the 180s. She would like to avoid emergent cardioversion due to risks at this time. -Due to this and as well as patient's current respiratory stress, does not want to give large fluids and will start with 1 L in case she has CHF/pulmonary edema. -Patient is currently febrile as well as tachypneic requiring about 3 to 4 L nasal cannula to maintain oxygen saturations above 92% -Chest x-ray as independently interpreted by me does reveal patchy opacity concerning for pneumonia without pneumothorax or pleural effusion -Patient is slowing down after amiodarone bolus. Also given 2 mg of magnesium. -She is now 130s heart rate still in a wide-complex but appears to be more of possibly sinus rhythm at this time -ECG independently interpreted by me with sinus tachycardia, rate of 133, left axis deviation, normal TN, left bundle branch block, normal QTc, no ST segment elevations consistent with STEMI criteria -Will continue amiodarone drip at this time -Due to patient's tachycardia, hypoxia will do CTA of the chest to help elucidate underlying etiology including blood clot. -CTA does not reveal pulm embolism but does reveal patchy opacity concerning for pneumonia -Will give ceftriaxone and doxycycline -Patient required admission for her pneumonia, tachycardia Differential diagnosis: V. tach, sinus tachycardia, PE, ACS, dysrhythmia, pneumonia, sepsis ER treatment provided: See below Diagnostics interpreted by me: ECG: As above Cardiac Monitoring: An order was placed for continuous cardiac monitoring. The monitor shows a rate of 133 with sinus rhythm. Laboratory studies: As stated above and show below. Imaging studies: See below. Critical Care Note: I have personally spent 50 minutes of critical care time in the direct management of this patient. This includes bedside care, interpretation of diagnostic studies, and testing, discussion with consultants, patient, and family members, and other required patient management activities. This 50 minutes is in excess of all separately billable procedures. Past Med/Surg History Medical History Positive colorectal cancer screening using Cologuard test Emphysema lung Vitamin B 12 deficiency Pulmonary nodule Osteopenia after menopause Anemia Tobacco dependence History of bleeding disorder HLD (hyperlipidemia) HTN (hypertension) Diabetes Surgical History No pertinent past surgical history Family History Mother Diabetes Hypertension Father Diabetes Hypertension Sister Diabetes Hypertension Breast cancer, Onset Age: 38 Brother Diabetes Hypertension Denies family history of Ovarian cancer Prostate cancer Myocardial infarction Colorectal cancer Social History Smoking Status: Never smoker Tobacco Type: Cigarettes Age Quit Using Tobacco: 70; packs per day: 0.5; Second Hand Exposure: Yes; Do You Dip or Chew Tobacco: No; Hx Alcohol Use: No Hx Substance Use: No Preferred Language: Slovak Communication Ability: Effective Visual Impairment: No Limitations Hearing Ability: Normal Digital Media Sales Consultant Required: No Beliefs That Will Affect Care: None marital status: Current Living Situation: Spouse current occupational status: retired current occupation: housewife or homemaker How many Children do You have: 3 Feels Safe at Home: Yes Childhood Exposure to Second-Hand Smoke: No Diet: regular Diet Comment: regular caffeine: Yes during the past year weight has: remained stable Dental Care, Regularly: Yes Physical Activity Frequency: Daily Seatbelt Use: always Sunscreen Use: Yes Allergies Allergies Allergy/AdvReac Type Severity Reaction Status Date / Time canagliflozin [From Invokana] AdvReac Intermediate Yeast Verified 05/09/23 19:59 Infection dapagliflozin [From Farxiga] AdvReac Intermediate Yeast Verified 05/09/23 19:59 Infection dulaglutide [From Trulicity] AdvReac nausea and Verified 05/09/23 19:59 vomiting Home Meds Home Medications Medication Instructions Recorded Confirmed calcium carbonate 600 mg-vitamin 1 cap PO DAILY 04/26/23 05/09/23 D3 5 mcg (200 unit) capsule (Calcium 600 + D(3)) cholecalciferol (vitamin D3) 125 125 mcg PO DAILY 04/26/23 05/09/23 mcg (5,000 unit) capsule cinnamon bark 500 mg capsule 500 mg PO DAILY 04/26/23 05/09/23 folic acid 20 mg capsule 80 mg PO DAILY 04/26/23 05/09/23 red beet root 250 mg-sour mcgarry 1 tab PO DAILY 04/26/23 05/09/23 extract 0.5 mg chewable tablet Previous Rx's Medication Instructions Recorded aspirin 81 mg tablet,delayed 81 mg PO DAILY #30 tabs 09/20/18 release (Adult Low Dose Aspirin) blood-glucose meter (Blood Glucose #1 ea 04/22/22 Monitoring kit) lisinopril 5 mg tablet 5 mg PO DAILY #90 tabs 04/29/22 atorvastatin 20 mg tablet 20 mg PO QPM #90 tabs 11/17/22 fenofibrate 54 mg tablet 54 mg PO DAILY #90 tabs 11/17/22 sitagliptin phosphate 100 mg tablet 100 mg PO DAILY #90 tabs 11/17/22 pen needle, diabetic 31 gauge x #100 ea 12/10/2203/10" ketoconazole 2 % topical cream 1 applic topical BID #30 grams 01/13/23 fluticasone propionate 50 2 spray intranasal DAILY #16 grams 03/08/23 mcg/actuation nasal spray,suspension metformin 500 mg tablet,extended 1,000 mg (2 x 500 mg) PO BID #360 03/17/23 release 24 hr tabs loratadine 10 mg tablet (Allergy 10 mg PO DAILY #90 tabs 03/22/23 Relief (loratadine)) ferrous sulfate 325 mg (65 mg 325 mg PO TID 90 days #270 tabs 04/08/23 iron) tablet insulin glargine 100 unit/mL (3 18 unit (0.18 mL) subcut QPM #15 mL 04/27/23 mL) subcutaneous pen (Basaglar KwikPen U-100 Insulin) Results & Data (ED) Vital Signs Vital Signs - 24 hr 05/09/23 19:32 05/09/23 19:33 05/09/23 19:37 Temperature Temperature Source Pulse Rate 157 H 156 H Pulse Rate [Apical] Pulse Rate from SpO2 Sensor 156 H Respiratory Rate 31 H Blood Pressure 149/105 H Blood Pressure [Right Arm] Blood Pressure Mean 108 Blood Pressure Mean [Right Arm] Pulse Oximetry 98 Oxygen Delivery Method Oxygen Flow Rate Sepsis Recent Fever Within 48 Hours Sepsis New/Unexplained Change in Mental Status Sepsis Action Taken by Nursing Oxygen Flow Rate - Titration Pulse Oximetry Post Tiitration 05/09/23 19:37 05/09/23 19:40 05/09/23 19:40 Temperature 38.0 C H Temperature Source Oral Pulse Rate 155 H 153 H 153 H Pulse Rate [Apical] Pulse Rate from SpO2 Sensor 155 H 154 H Respiratory Rate 29 H 34 H Blood Pressure 149/105 H Blood Pressure [Right Arm] Blood Pressure Mean 119 Blood Pressure Mean [Right Arm] Pulse Oximetry 96 95 100 Oxygen Delivery Method Room Air Oxygen Flow Rate Sepsis Recent Fever Within 48 Hours No Sepsis New/Unexplained Change in Mental Status No Sepsis Action Taken by Nursing Physician Notified Oxygen Flow Rate - Titration Pulse Oximetry Post Tiitration 05/09/23 19:45 05/09/23 19:48 05/09/23 19:48 Temperature Temperature Source Pulse Rate 144 H Pulse Rate [Apical] 138 H Pulse Rate from SpO2 Sensor 144 H Respiratory Rate 32 H 21 Blood Pressure Blood Pressure [Right Arm] 157/101 H Blood Pressure Mean Blood Pressure Mean [Right Arm] 119 Pulse Oximetry 88 L 93 92 Oxygen Delivery Method Nasal Cannula Oxygen Flow Rate 0 5 Sepsis Recent Fever Within 48 Hours Sepsis New/Unexplained Change in Mental Status Sepsis Action Taken by Nursing Oxygen Flow Rate - Titration 3 Pulse Oximetry Post Tiitration 96 05/09/23 19:48 05/09/23 19:50 05/09/23 20:00 Temperature Temperature Source Pulse Rate 136 H Pulse Rate [Apical] 127 H Pulse Rate from SpO2 Sensor 137 H Respiratory Rate 32 H 31 H Blood Pressure 157/101 H Blood Pressure [Right Arm] 141/90 H Blood Pressure Mean 115 Blood Pressure Mean [Right Arm] 107 Pulse Oximetry 90 94 Oxygen Delivery Method Nasal Cannula Oxygen Flow Rate 3 Sepsis Recent Fever Within 48 Hours Sepsis New/Unexplained Change in Mental Status Sepsis Action Taken by Nursing Oxygen Flow Rate - Titration Pulse Oximetry Post Tiitration 05/09/23 20:00 05/09/23 20:00 05/09/23 20:00 Temperature Temperature Source Pulse Rate 123 H 122 H Pulse Rate [Apical] Pulse Rate from SpO2 Sensor 122 H Respiratory Rate 33 H Blood Pressure 141/90 H Blood Pressure [Right Arm] Blood Pressure Mean 108 Blood Pressure Mean [Right Arm] Pulse Oximetry 97 Oxygen Delivery Method Oxygen Flow Rate Sepsis Recent Fever Within 48 Hours Sepsis New/Unexplained Change in Mental Status Sepsis Action Taken by Nursing Oxygen Flow Rate - Titration Pulse Oximetry Post Tiitration 05/09/23 20:10 05/09/23 20:15 05/09/23 20:15 Temperature Temperature Source Pulse Rate 132 H 133 H Pulse Rate [Apical] 131 H Pulse Rate from SpO2 Sensor 131 H 131 H Respiratory Rate 21 29 H 26 H Blood Pressure Blood Pressure [Right Arm] 152/99 H Blood Pressure Mean Blood Pressure Mean [Right Arm] 116 Pulse Oximetry 95 95 95 Oxygen Delivery Method Nasal Cannula Oxygen Flow Rate 3 Sepsis Recent Fever Within 48 Hours Sepsis New/Unexplained Change in Mental Status Sepsis Action Taken by Nursing Oxygen Flow Rate - Titration Pulse Oximetry Post Tiitration 05/09/23 20:15 05/09/23 20:20 05/09/23 20:28 Temperature Temperature Source Pulse Rate 136 H 132 H Pulse Rate [Apical] Pulse Rate from SpO2 Sensor 135 H 133 H Respiratory Rate 28 H 24 Blood Pressure 152/99 H Blood Pressure [Right Arm] Blood Pressure Mean 112 Blood Pressure Mean [Right Arm] Pulse Oximetry 94 96 Oxygen Delivery Method Oxygen Flow Rate Sepsis Recent Fever Within 48 Hours Sepsis New/Unexplained Change in Mental Status Sepsis Action Taken by Nursing Oxygen Flow Rate - Titration Pulse Oximetry Post Tiitration 05/09/23 20:51 05/09/23 20:51 05/09/23 20:52 Temperature Temperature Source Pulse Rate 125 H Pulse Rate [Apical] 126 H Pulse Rate from SpO2 Sensor 126 H Respiratory Rate 27 H 26 H Blood Pressure 139/93 Blood Pressure [Right Arm] 139/93 Blood Pressure Mean 97 Blood Pressure Mean [Right Arm] 108 Pulse Oximetry 97 97 Oxygen Delivery Method Nasal Cannula Oxygen Flow Rate 3 Sepsis Recent Fever Within 48 Hours Sepsis New/Unexplained Change in Mental Status Sepsis Action Taken by Nursing Oxygen Flow Rate - Titration Pulse Oximetry Post Tiitration 05/09/23 21:00 05/09/23 21:00 05/09/23 21:00 Temperature Temperature Source Pulse Rate 126 H Pulse Rate [Apical] 126 H Pulse Rate from SpO2 Sensor 125 H Respiratory Rate 25 H 28 H Blood Pressure 151/95 H Blood Pressure [Right Arm] 151/95 H Blood Pressure Mean 100 Blood Pressure Mean [Right Arm] 113 Pulse Oximetry 97 97 Oxygen Delivery Method Nasal Cannula Oxygen Flow Rate 3 Sepsis Recent Fever Within 48 Hours Sepsis New/Unexplained Change in Mental Status Sepsis Action Taken by Nursing Oxygen Flow Rate - Titration Pulse Oximetry Post Tiitration 05/09/23 21:10 05/09/23 21:15 05/09/23 21:15 Temperature Temperature Source Pulse Rate 129 H 126 H Pulse Rate [Apical] 124 H Pulse Rate from SpO2 Sensor 130 H 125 H Respiratory Rate 31 H 27 H 24 Blood Pressure Blood Pressure [Right Arm] 128/97 Blood Pressure Mean Blood Pressure Mean [Right Arm] 107 Pulse Oximetry 92 96 97 Oxygen Delivery Method Nasal Cannula Oxygen Flow Rate 3 Sepsis Recent Fever Within 48 Hours Sepsis New/Unexplained Change in Mental Status Sepsis Action Taken by Nursing Oxygen Flow Rate - Titration Pulse Oximetry Post Tiitration 05/09/23 21:15 05/09/23 21:20 05/09/23 21:30 Temperature Temperature Source Pulse Rate 121 H 122 H Pulse Rate [Apical] Pulse Rate from SpO2 Sensor 123 H 121 H Respiratory Rate 27 H 25 H Blood Pressure 128/97 Blood Pressure [Right Arm] Blood Pressure Mean 109 Blood Pressure Mean [Right Arm] Pulse Oximetry 96 95 Oxygen Delivery Method Oxygen Flow Rate Sepsis Recent Fever Within 48 Hours Sepsis New/Unexplained Change in Mental Status Sepsis Action Taken by Nursing Oxygen Flow Rate - Titration Pulse Oximetry Post Tiitration 05/09/23 21:30 05/09/23 21:40 05/09/23 21:53 Temperature Temperature Source Pulse Rate 120 H 0 L Pulse Rate [Apical] Pulse Rate from SpO2 Sensor 121 H Respiratory Rate 25 H Blood Pressure 123/90 Blood Pressure [Right Arm] Blood Pressure Mean 92 Blood Pressure Mean [Right Arm] Pulse Oximetry 95 Oxygen Delivery Method Oxygen Flow Rate Sepsis Recent Fever Within 48 Hours Sepsis New/Unexplained Change in Mental Status Sepsis Action Taken by Nursing Oxygen Flow Rate - Titration Pulse Oximetry Post Tiitration 05/09/23 22:02 05/09/23 22:10 05/09/23 22:20 Temperature Temperature Source Pulse Rate 115 H 113 H Pulse Rate [Apical] Pulse Rate from SpO2 Sensor 115 H 114 H Respiratory Rate 26 H 25 H Blood Pressure 112/68 Blood Pressure [Right Arm] Blood Pressure Mean 74 Blood Pressure Mean [Right Arm] Pulse Oximetry 95 96 Oxygen Delivery Method Oxygen Flow Rate Sepsis Recent Fever Within 48 Hours Sepsis New/Unexplained Change in Mental Status Sepsis Action Taken by Nursing Oxygen Flow Rate - Titration Pulse Oximetry Post Tiitration 05/09/23 22:20 05/09/23 22:30 05/09/23 22:31 Temperature Temperature Source Pulse Rate 112 H 112 H Pulse Rate [Apical] Pulse Rate from SpO2 Sensor 112 H 112 H Respiratory Rate 24 26 H Blood Pressure 133/97 Blood Pressure [Right Arm] Blood Pressure Mean 110 Blood Pressure Mean [Right Arm] Pulse Oximetry 93 96 Oxygen Delivery Method Oxygen Flow Rate Sepsis Recent Fever Within 48 Hours Sepsis New/Unexplained Change in Mental Status Sepsis Action Taken by Nursing Oxygen Flow Rate - Titration Pulse Oximetry Post Tiitration 05/09/23 22:31 Temperature Temperature Source Pulse Rate 112 H Pulse Rate [Apical] Pulse Rate from SpO2 Sensor 111 H Respiratory Rate 29 H Blood Pressure Blood Pressure [Right Arm] Blood Pressure Mean Blood Pressure Mean [Right Arm] Pulse Oximetry 94 Oxygen Delivery Method Nasal Cannula Oxygen Flow Rate 3 Sepsis Recent Fever Within 48 Hours Sepsis New/Unexplained Change in Mental Status Sepsis Action Taken by Nursing Oxygen Flow Rate - Titration Pulse Oximetry Post Tiitration Laboratory Data 05/09/23 19:36 05/09/23 19:36 Lab Results 05/09/23 05/09/23 05/09/23 Range/Units 19:36 19:44 21:18 WBC 20.91 H (4.8-10.8) K/ul RBC 4.20 (4.20-5.40) M/uL Hgb 12.2 (12.0-16.0) g/dl Hct 36.8 L (37.0-47.0) % MCV 87.6 (80.0-100.0) fL MCH 29.0 (25.0-34.0) pg MCHC 33.2 (32.0-36.0) g/dL RDW Std Deviation 44.7 (36.4-46.3) fL RDW Coeff of Kim 13.9 (11.5-14.5) % Plt Count 360 (130-400) K/uL MPV 10.2 (9.4-12.4) fL Immature Gran % (Auto) 0.6 % Neut % (Auto) 90.8 % Lymph % (Auto) 3.6 % [place] % (Auto) 4.6 % Eos % (Auto) 0.0 % Baso % (Auto) 0.4 % Neut # (Auto) 18.98 H (1.40-6.50) K/uL Lymph # (Auto) 0.75 L (1.20-3.40) K/uL [place] # (Auto) 0.96 H (0.11-0.59) K/uL Eos # (Auto) 0.01 (0.00-0.50) K/uL Baso # (Auto) 0.08 (0.00-0.20) K/uL Immature Gran # (Auto) 0.13 (0.01-0.20) K/uL Sodium 134 L (136-145) mmol/L Potassium 4.0 (3.5-5.1) mmol/L Chloride 103 (98-107) mmol/L Carbon Dioxide 20 L (21-32) mmol/L Anion Gap 11 (3-11) BUN 22 (6-23) mg/dl Creatinine 1.42 H (0.6-1.2) mg/dl Est Cr Clr Drug Dosing 35.5 ml/min Est GFR ( Amer) 42.7 ml/min Est GFR (Non-Af Amer) 36.8 ml/min BUN/Creatinine Ratio 15.5 (10-20) Glucose 267 H (70-99(Fasting)) mg/dl Calcium 8.7 (8.6-10.3) mg/dl Magnesium 1.4 L (1.7-2.4) mg/dl Total Bilirubin 0.6 (0.2-1.0) mg/dl AST 22 (13-39) U/L ALT 14 (7-52) U/L Alkaline Phosphatase 72 (34-104) U/L Troponin I High Sens 146.8 H* 988.7 H* D (0-14) pg/ml Total Protein 8.0 (6.0-8.3) gm/dl Albumin 3.9 (3.4-5.0) gm/dl Globulin 4.1 H (2.5-4.0) gm/dl Albumin/Globulin Ratio 1.0 (0.9-2) TSH 1.076 (0.300-4.500) uIu/ml Adenovirus (PCR) Not Detected (NotDetected) B. pertussis DNA (PCR) Not Detected (NotDetected) B.parapertussis DNA PCR Not Detected (NotDetected) C. pneumoniae DNA (PCR) Not Detected (NotDetected) Coronavirus OC43 (PCR) Not Detected (NotDetected) Coronavirus HKU1 (PCR) Not Detected (NotDetected) Coronavirus 229E (PCR) Not Detected (NotDetected) SARS-CoV-2 (PCR) Not Detected (NotDetected) Coronavirus NL63 (PCR) DETECTED A (NotDetected) Human Metapneumovir PCR Not Detected (NotDetected) Influenza Type A (PCR) Not Detected (NotDetected) Influenza Type B (PCR) Not Detected (NotDetected) M. pneumoniae (PCR) Not Detected (NotDetected) Parainfluenza 1 (PCR) Not Detected (NotDetected) Parainfluenza 2 (PCR) Not Detected (NotDetected) Parainfluenza 3 (PCR) Not Detected (NotDetected) Parainfluenza 4 (PCR) Not Detected (NotDetected) RSV (PCR) Not Detected (NotDetected) Entero/Rhino (PCR) Not Detected (NotDetected) Administered Medications Amiodarone HCl/Dextrose (Nexterone / D5w) 360 mg in 200 mls @ 33.333 mls/hr IV ONE ONE Stop: 05/10/23 01:54 Last Admin: 05/09/23 19:57 Dose: 1 mg/min, 33.3 mls/hr Documented By: WILDER Co-signed By: TORI Doxycycline Hyclate 100 mg/ (Dextrose) 100 mls @ 50 mls/hr IV NOW STA Stop: 05/09/23 23:48 Last Admin: 05/09/23 23:34 Dose: 50 mls/hr Documented By: ZANA Discontinued Medications Amiodarone HCl/Dextrose (Amiodarone 150mg / 100ml D5w) Confirm Administered Dose 150 mg IV .STK-MED ONE Stop: 05/09/23 19:40 Last Admin: 05/09/23 19:51 Dose: Not Given Documented By: WILDER Amiodarone HCl (Amiodarone Iv Bolus & Drip) 1 each IV NOW STA; Protocol Stop: 05/09/23 19:45 Last Admin: 05/09/23 19:58 Dose: Not Given Documented By: WILDER Amiodarone HCl/Dextrose (Nexterone / D5w) 150 mg in 100 mls @ 600 mls/hr IV NOW STA Stop: 05/09/23 19:53 Last Infusion: 05/09/23 20:58 Dose: Infused Documented By: WILDER Co-signed By: RYAN Admin: 05/09/23 19:53 Dose: 600 mls/hr Documented By: WILDER Co-signed By: TORI Acetaminophen (Ofirmev) 1,000 mg in 100 mls @ 400 mls/hr IV NOW STA Stop: 05/09/23 21:11 Last Infusion: 05/09/23 21:27 Dose: Infused Documented By: Admin: 05/09/23 21:10 Dose: 400 mls/hr Documented By: WILDER Ceftriaxone Sodium (Rocephin) 2,000 mg in 50 mls @ 100 mls/hr IV NOW STA Stop: 05/09/23 22:17 Last Infusion: 05/09/23 23:00 Dose: Infused Documented By: Admin: 05/09/23 22:22 Dose: 100 mls/hr Documented By: ANJANA Sodium Chloride (Nss) 1,000 mls @ 999 mls/hr IV .Q1H1M ONE Stop: 05/09/23 22:50 Last Infusion: 05/09/23 23:33 Dose: Infused Documented By: Admin: 05/09/23 22:20 Dose: 999 mls/hr Documented By: ANJANA Ioversol (Optiray 320 125ml) 117 ml IV ONCE ONE Stop: 05/09/23 20:43 Last Admin: 05/09/23 20:42 Dose: 117 ml Documented By: CLARA Magnesium Sulfate/Dextrose (Magnesium Sulfate 1gm / D5w Bag) Confirm Administered Dose 2 gm IV .STK-MED ONE Stop: 05/09/23 19:41 Last Admin: 05/09/23 19:51 Dose: Not Given Documented By: WILDER Magnesium Sulfate/Dextrose (Magnesium Sulfate 1gm / D5w Bag) 2 gm IV NOW STA Stop: 05/09/23 19:45 Last Admin: 05/09/23 19:52 Dose: 2 gm Documented By: WILDER Miscellaneous (Stat Iv Infusion Titration Per Protocol) 1 each N/A NOW STA Stop: 05/09/23 19:45 Last Admin: 05/09/23 19:58 Dose: Not Given Documented By: WILDER Imaging Data Radiologist's Impression: Chest CTA 05/09/23 20:21 Exam(s): CTA CHEST IV Amt: 117 ml optiray 320 EXAM: CT Angiography Chest With Intravenous Contrast CLINICAL HISTORY: Reason for exam: PE vs PNA vs CHF. TECHNIQUE: Axial computed tomographic angiography images of the chest with intravenous contrast. CTDI is 29 mGy and DLP is 569.16 mGy-cm. Automated exposure control was utilized for the study. A dose lowering technique was utilized adhering to the principles of ALARA. MIP reconstructed images were created and reviewed. COMPARISON: No relevant prior studies available. FINDINGS: Artifacts: Respiratory motion artifact limits evaluation. Pulmonary arteries: Unremarkable. No acute pulmonary embolism. Aorta: No acute findings. No thoracic aortic aneurysm. Lungs: Patchy bilateral airspace consolidations, concerning for multilobar pneumonia. No pleural effusion. Pleural space: No pneumothorax. Heart: Unremarkable. No cardiomegaly. No significant pericardial effusion. No evidence of RV dysfunction. Bones/joints: No acute fracture. No dislocation. Soft tissues: Unremarkable. Lymph nodes: Unremarkable. No enlarged lymph nodes. IMPRESSION: 1. No acute pulmonary embolism. 2. Patchy bilateral airspace consolidations, concerning for multilobar pneumonia. No pleural effusion. Electronically signed by: Félix Stearns MD 05/09/23 21:05 PM Discharge Plan Visit Data Chief Complaint: Cardiac Assessment Stated Complaint: SHORTNESS OF BREATH, TACHY ED Provider: Neri Ramos Discharge Problem: Pneumonia, Tachycardia Forms Stand Alone Forms: My [facility] Prescriptions Prescriptions: No Action lisinopril 5 mg tablet 5 mg PO DAILY Qty: 90 1RF fenofibrate 54 mg tablet 54 mg PO DAILY Qty: 90 1RF atorvastatin 20 mg tablet 20 mg PO QPM Qty: 90 1RF sitagliptin phosphate 100 mg tablet 100 mg PO DAILY Qty: 90 3RF Hold Instructions: Started on Trulicity 06/11/20 (DME) pen needle, diabetic 31 gauge x 1/4" needle See Rx Instructions .ROUTE .MEDSUPPLY Qty: 100 1RF Rx Instructions: As directed ketoconazole 2 % cream 1 applic topical BID Qty: 30 5RF fluticasone propionate 50 mcg/actuation spray,suspension 2 spray intranasal DAILY Qty: 16 5RF Rx Instructions: administer into each nostril metformin 500 mg tablet extended release 24 hr 1,000 mg PO BID Qty: 360 1RF Rx Instructions: REGULAR NOT OSM OR MOD loratadine [Allergy Relief (loratadine)] 10 mg tablet 10 mg PO DAILY Qty: 90 1RF ferrous sulfate 325 mg (65 mg iron) tablet 325 mg PO TID 90 Days Qty: 270 1RF Calcium 600 + D(3) 600 mg-5 mcg (200 unit) capsule 1 cap PO DAILY cholecalciferol (vitamin D3) 125 mcg (5,000 unit) capsule 125 mcg PO DAILY folic acid 20 mg capsule 80 mg PO DAILY cinnamon bark 500 mg capsule 500 mg PO DAILY red beet root-sour mcgarry ext 250-0.5 mg tablet,chewable 1 tab PO DAILY insulin glargine [Basaglar KwikPen U-100 Insulin] 100 unit/mL (3 mL) insulin pen 18 unit subcut QPM Qty: 15 1RF (DME) blood-glucose meter [Blood Glucose Monitoring] Kit See Rx Instructions .ROUTE .MEDSUPPLY Qty: 1 0RF Rx Instructions: As directed aspirin [Adult Low Dose Aspirin] 81 mg tablet,delayed release (DR/EC) 81 mg PO DAILY Qty: 30 2RF Referrals Referrals: Harshal Ruelas CRNP [Primary Care Provider] -
--- NOTE | 2023-05-09 21:06 | CT Scan Report ---
Exam(s): CTA CHEST IV Amt: 117 ml optiray 320 EXAM: CT Angiography Chest With Intravenous Contrast CLINICAL HISTORY: Reason for exam: PE vs PNA vs CHF. TECHNIQUE: Axial computed tomographic angiography images of the chest with intravenous contrast. CTDI is 29 mGy and DLP is 569.16 mGy-cm. Automated exposure control was utilized for the study. A dose lowering technique was utilized adhering to the principles of ALARA. MIP reconstructed images were created and reviewed. COMPARISON: No relevant prior studies available. FINDINGS: Artifacts: Respiratory motion artifact limits evaluation. Pulmonary arteries: Unremarkable. No acute pulmonary embolism. Aorta: No acute findings. No thoracic aortic aneurysm. Lungs: Patchy bilateral airspace consolidations, concerning for multilobar pneumonia. No pleural effusion. Pleural space: No pneumothorax. Heart: Unremarkable. No cardiomegaly. No significant pericardial effusion. No evidence of RV dysfunction. Bones/joints: No acute fracture. No dislocation. Soft tissues: Unremarkable. Lymph nodes: Unremarkable. No enlarged lymph nodes. IMPRESSION: 1. No acute pulmonary embolism. 2. Patchy bilateral airspace consolidations, concerning for multilobar pneumonia. No pleural effusion. Electronically signed by: Félix Stearns MD 05/09/23 21:05 PM
[2023-05-09] MEDS: ACETAMINOPHEN 1,000 MG/100 ML VIAL IV STA (21:10)
[2023-05-09 21:55] LABS: Adenovirus PCR Not Detected (NotDetected); Bordetella parapertussis PCR Not Detected (NotDetected); Bordetella pertussis PCR Not Detected (NotDetected); Chlamydia pneumoniae PCR Not Detected (NotDetected); Coronavirus 229E PCR Not Detected (NotDetected); Coronavirus CoV-2 (COVID19)PCR Not Detected (NotDetected); Coronavirus HKU1 PCR Not Detected (NotDetected); Coronavirus NL63 PCR DETECTED (NotDetected); Coronavirus OC43PCR Not Detected (NotDetected); Human Metapneumovirus PCR Not Detected (NotDetected); Influenza A PCR Not Detected (NotDetected); Influenza B PCR Not Detected (NotDetected); Mycoplasma pneumoniae PCR Not Detected (NotDetected); Parainfluenza Virus 1 PCR Not Detected (NotDetected); Parainfluenza Virus 2 PCR Not Detected (NotDetected); Parainfluenza Virus 3 PCR Not Detected (NotDetected); Parainfluenza Virus 4 PCR Not Detected (NotDetected); Respiratory Syncytial VirusPCR Not Detected (NotDetected); Rhinovirus/Enterovirus PCR Not Detected (NotDetected)
[2023-05-09 22:14] LABS: Troponin I High Sensitivity 988.7 pg/ml (0-14)
[2023-05-09] MEDS: SODIUM CHLORIDE 0.9% 1,000 ML IV ONE (22:20)
[2023-05-09] MEDS: cefTRIAXone SODIUM 2,000 MG/50 ML BAG IV STA (22:22)
--- NOTE | 2023-05-09 23:31 | History & Physical Report ---
Date of Service May 09, 2023 Assessment & Plan (1) Tachycardia: Plan: - Wide complex tachycardia on admission, rates improving with amiodarone drip- plan to continue - appears dry on exam, will continue to hydrate with IVF (NSS @80ml/hr) and will replete magnesium as per below - no prior cardiac history - TTE pending - cardiology consulted (2) Elevated troponin: Plan: - initial troponin elevated to 146, increased to 988 after 2 hours - EKG taken after pt back in NSR showed; t wave inversion in anterior leads - she is largely asymptomatic now - started on heparin drip, received 324mg ASP from EMS; continue 81mg daily - cardiology consulted (3) Pneumonia: Plan: - Concern for PNA on CTA - Was started on ceftriaxone/doxycycline in the ED; plan to continue for treatment of community acquired PNA - tested positive for coronavirus - stable on 2L NC, wean as tolerated (4) Emphysema lung: (5) Diabetes: Plan: - hold metformin, sitagliptin - continue 18units Lantus daily with SSI - last hemoglobin a1c= 7.7 04/26/23 (6) HTN (hypertension): Plan: - hold lisinopril in the setting of MAIA (7) HLD (hyperlipidemia): Plan: - continue atorvastatin, fenofibrate - updated lipid panel from 04/26/23; LDL=75 (8) MAIA (acute kidney injury): Plan: Creatine= 1.42, baseline= 1 Likely prerenal in the setting of hypovolemia IVF as per above Hold lisinopril Continue to trend (9) Hypomagnesemia: Plan: Mg= 1.4 on admission, repleted continue to trend History of Present Illness Primary Care Provider: RENETTA Pritchett 73 year old female with a past medical history of DM2, HTN, HLD, Anemia, prior tobacco use, osteopenia, emphysema presenting with acute onset wide complex tachycardia. Sudden onset dyspnea at about 1700 while she was gardening, felt short of breath and felt like she was wheezing. Prior to this evening she states that she in her normal health. Denies recent illness. EMS was called and was found to be hypoxic to the 80s and with a wide complex tachycardia. Was given 324mg asp and nitro. Upon arrival to ED EKG with Wide Complex Tachycardia and was bolused with amiodarone and then started on amiodarone drip. Magnesium was found to be low and repleted. Had CTA without pulmonary embolism, with opacities concerning for pneumonia- was given a dose of ceftriaxone and doxycycline. Upon my elevation she said she was feeling much better. Decreased dyspnea. Denies any active chest pain, headache, nausea, vomiting. Allergies Allergy/AdvReac Type Severity Reaction Status Date / Time canagliflozin [From Invokana] AdvReac Intermediate Yeast Verified 05/09/23 19:59 Infection dapagliflozin [From Farxiga] AdvReac Intermediate Yeast Verified 05/09/23 19:59 Infection dulaglutide [[facility]] AdvReac nausea and Verified 05/09/23 19:59 vomiting Home Medications Medication Instructions Recorded Confirmed Type aspirin 81 mg tablet,delayed 81 mg PO DAILY #30 tabs 09/20/18 05/09/23 Rx release (Adult Low Dose Aspirin) blood-glucose meter (Blood Glucose #1 ea 04/22/22 12/16/22 Rx Monitoring kit) lisinopril 5 mg tablet 5 mg PO DAILY #90 tabs 04/29/22 05/09/23 Rx sitagliptin phosphate 100 mg tablet 100 mg PO DAILY #90 tabs 11/17/22 05/09/23 Rx pen needle, diabetic 31 gauge x #100 ea 12/10/22 12/16/22 Rx 1/4" ketoconazole 2 % topical cream 1 applic topical BID #30 grams 01/13/23 05/09/23 Rx fluticasone propionate 50 2 spray intranasal DAILY #16 grams 03/08/23 05/09/23 Rx mcg/actuation nasal spray,suspension metformin 500 mg tablet,extended 1,000 mg (2 x 500 mg) PO BID #360 03/17/23 05/09/23 Rx release 24 hr tabs loratadine 10 mg tablet (Allergy 10 mg PO DAILY #90 tabs 03/22/23 05/09/23 Rx Relief (loratadine)) ferrous sulfate 325 mg (65 mg 325 mg PO TID 90 days #270 tabs 04/08/23 05/09/23 Rx iron) tablet calcium carbonate 600 mg-vitamin 1 cap PO DAILY 04/26/23 05/09/23 History D3 5 mcg (200 unit) capsule (Calcium 600 + D(3)) cholecalciferol (vitamin D3) 125 125 mcg PO DAILY 04/26/23 05/09/23 History mcg (5,000 unit) capsule cinnamon bark 500 mg capsule 500 mg PO DAILY 04/26/23 05/09/23 History folic acid 20 mg capsule 80 mg PO DAILY 04/26/23 05/09/23 History red beet root 250 mg-sour mcgarry 1 tab PO DAILY 04/26/23 05/09/23 History extract 0.5 mg chewable tablet insulin glargine 100 unit/mL (3 18 unit (0.18 mL) subcut QPM #15 mL 04/27/23 05/09/23 Rx mL) subcutaneous pen (Basaglar KwikPen U-100 Insulin) atorvastatin 20 mg tablet 20 mg PO QPM #90 tabs 05/10/23 Rx fenofibrate 54 mg tablet 54 mg PO DAILY #90 tabs 05/10/23 Rx Past Med/Surg History Medical History Positive colorectal cancer screening using Cologuard test Emphysema lung Vitamin B 12 deficiency Pulmonary nodule Osteopenia after menopause Last DEXA scan noted January 2019-AP spine T-score-0.3 and femur-2.1 Anemia Tobacco dependence History of bleeding disorder HLD (hyperlipidemia) HTN (hypertension) Diabetes Surgical History No pertinent past surgical history Family History Mother Diabetes Hypertension Father Diabetes Hypertension Sister Diabetes Hypertension Breast cancer, Onset Age: 38 Brother Diabetes Hypertension Denies family history of Ovarian cancer Prostate cancer Myocardial infarction Colorectal cancer Social History Smoking Status: Former smoker Tobacco Type: Cigarettes Age Quit Using Tobacco: 70; packs per day: 0.5; Second Hand Exposure: Yes; Do You Dip or Chew Tobacco: No; Tobacco Cessation Education Requested by Patient: No Hx Alcohol Use: No Hx Substance Use: No Preferred Language: Georgian Communication Ability: Effective Visual Impairment: No Limitations Hearing Ability: Normal Cash Posting Representative Required: No Beliefs That Will Affect Care: None marital status: Current Living Situation: Spouse current occupational status: retired current occupation: housewife or homemaker How many Children do You have: 3 Other Information That Helps Us Care for You: No Feels Safe at Home: Yes Childhood Exposure to Second-Hand Smoke: No Diet: regular Diet Comment: regular caffeine: Yes during the past year weight has: remained stable Dental Care, Regularly: Yes Physical Activity Frequency: Daily Seatbelt Use: always Sunscreen Use: Yes Assistive Devices: None Review of Systems Review of Systems: As per above Physical Exam Physical Exam: Constitutional: well-appearing, no acute distress HEENT: NCAT, no conjunctival injection CV: tachycardic, regular rhythm, no murmur appreciated, extremities well- perfused, no LE edema Resp: CTABL, no wheezes/rales/rhonchi appreciated, no increased work of breathing GI: soft, nondistended, nontender, BS normoactive MSK: no gross deformities appreciated Skin: warm, dry, no rash appreciated Neuro: alert, oriented, no focal neurologic deficit appreciated Results & Data Results & Data Vital Signs (Past 12 Hours) Vital Signs Temp Pulse Pulse Resp BP BP Pulse Ox 05/09/23 21:15 124 H 27 H 128/97 96 05/09/23 21:00 126 H 25 H 151/95 H 97 05/09/23 20:51 126 H 27 H 139/93 97 05/09/23 20:15 131 H 29 H 152/99 H 95 05/09/23 20:00 123 H 05/09/23 20:00 127 H 31 H 141/90 H 94 05/09/23 19:48 138 H 32 H 157/101 H 93 05/09/23 19:45 88 L 05/09/23 19:40 38.0 C H 153 H 34 H 149/105 H 95 05/09/23 19:32 157 H O2 Del Method O2 Flow Rate 05/09/23 21:15 Nasal Cannula 3 05/09/23 21:00 Nasal Cannula 3 05/09/23 20:51 Nasal Cannula 3 05/09/23 20:15 Nasal Cannula 3 05/09/23 20:00 05/09/23 20:00 Nasal Cannula 3 05/09/23 19:48 Nasal Cannula 5 05/09/23 19:45 0 05/09/23 19:40 Room Air 05/09/23 19:32 Supervising Physician Co-Signing Physician Notes Attending addendum: I have physically seen this patient, have supervised the medical residents activities, and agree with the H&P unless as otherwise noted. Assessment and Plan: Wide-complex tachycardia- Noted upon presentation to the ED Started on amiodarone bolus then drip by the ED, will continue Optimize magnesium with current level 1.4, give 2 g magnesium sulfate IV and recheck laboratories in a.m. Optimize fluid balance with acute kidney injury superimposed on CKD Coronavirus/secondary bacterial pneumonia- Continue ceftriaxone and doxycycline IV begun in the ED Nasal cannula oxygen, titrate to keep pulse ox around 92-94% DuoNebs every 2 hours as needed Acute kidney injury superimposed on CKD- Creatinine 1.42, with baseline 1.15 Status post 1 L normal saline bolus from the ED Placed on IV fluids as noted, recheck laboratories in a.m. Temporarily hold lisinopril Elevated troponin/hypertension- Initial troponin 146.8, with follow-up 988.7, without acute EKG changes- Follow troponins serially Likely secondary to increased heart rate The patient will be admitted to telemetry for serial cardiac enzymes, serial EKG's, cardiac rhythm monitoring and a 2-D echocardiogram with Dopplers. Diabetes mellitus- Continuing glargine 18 units subcu every morning Placed on Accu-Cheks with NovoLog SSI Hold metformin and Sitagliptin Resident Activity Tracking Resident Involvement: Resident Care Provided Care Provided: Adult Hospital Medicine
[2023-05-09] MEDS: DOXYCYCLINE HYCLATE 100 MG in DEXTROSE 5% MINI-B 100 ML IV STA (23:34)
[2023-05-10] MEDS ORDERED: Heparin IV Adult Wt-Based Low-Dose w/ INITIAL Bolus Protocol IV STA (00:03)
[2023-05-10 00:26] LABS: ANTI-Xa, UFH(UnfractionatedHep < 0.10 IU/ml (0.3-0.7); Partial Thromboplastin Ratio 0.9; Partial Thromboplastin Time 26 Seconds (21-31); Prothrombin Time 10.9 Seconds (9.0-12.0)
[2023-05-10 00:47] LABS: Magnesium 2.1 mg/dl (1.7-2.4)
[2023-05-10] MEDS ORDERED: GLUCAGON FOR INJ 1 MG VIAL SQ PRN (01:16)
[2023-05-10] MEDS ORDERED: GLUCOSE 40% GEL 15 GM TUBE PO PRN (01:16)
[2023-05-10] MEDS ORDERED: CARBOHYDRATES FOR HYPOGLYCEMIA PO PRN (01:16)
[2023-05-10] MEDS ORDERED: GLUCOSE 10 TAB/TUBE PO PRN (01:16)
[2023-05-10] MEDS ORDERED: DEXTROSE 50% 50 ML SYRINGE IV PRN (01:16)
[2023-05-10] MEDS: SODIUM CHLORIDE 0.9% 1,000 ML IV SCH (01:28)
[2023-05-10] MEDS: AMIODARONE / D5W 360 MG/200 ML BAG IV SCH (01:30)
[2023-05-10] MEDS: INSULIN ASPART PER UNIT CHARGE SC SCH (01:48)
[2023-05-10] MEDS: HEPARIN SOD (PORCINE) 1000 UNIT/ML IV ONE ×2 (01:50→16:47)
[2023-05-10] MEDS: HEPARIN SODIUM/DEXTROSE 25,000 UNITS/500 ML BAG IV SCH (01:51)
[2023-05-10] MEDS: ACETAMINOPHEN 500 MG TAB PO PRN (05:17)
--- NOTE | 2023-05-10 07:03 | XRay Report ---
XR chest 1V portable CLINICAL HISTORY: SOB TECHNIQUE: Single frontal radiograph of the chest was obtained. Comparison: Comparison is made to chest radiograph a 11/01/[address] chest 06/17/2022 FINDINGS: No lines and tubes are seen. The cardiomediastinal silhouette is normal. Multifocal airspace opacitie s are seen. No evidence of pleural effusion or pneumothorax. IMPRESSION: Multifocal airspace opacities may represent atelectasis, pneumonia, and/or aspiration. ACT 112: Negative or not required by law. Electronically signed by: Herrera Arce M.D. 05/10/2023 7:02 AM
[2023-05-10 07:51] LABS: Hematocrit (blood only) 29.7 % (37.0-47.0); Hemoglobin 10.4 g/dl (12.0-16.0); Mean Corpuscular Hemoglobin 29.5 pg (25.0-34.0); Mean Corpuscular Volume 84.1 fL (80.0-100.0); Mean Platelet Volume 10.2 fL (9.4-12.4); Platelet Count 316 K/uL (130-400); RDW Coefficient of Variation 14.5 % (11.5-14.5); RDW Standard Deviation 44.5 fL (36.4-46.3); Red Blood Count 3.53 M/uL (4.20-5.40); White Blood Count 21.72 K/ul (4.8-10.8)
[2023-05-10 08:08] LABS: BUN Creatinine Ratio 16.7 (10-20); Creatinine Clr Calc Pharmacy 43.5 ml/min; Est GFR (African American) 55.6 ml/min; Magnesium 1.9 mg/dl (1.7-2.4); Potassium 3.8 mmol/L (3.5-5.1)
[2023-05-10] MEDS: LANTUS PER UNIT CHARGE SQ SCH (08:25)
[2023-05-10] MEDS: FENOFIBRATE NANOCRYSTALLIZED 48 MG TABLET PO SCH (08:26)
[2023-05-10] MEDS: CALCIUM 600MG + VIT D 400 IU TAB PO SCH (08:26)
[2023-05-10] MEDS: ASPIRIN 81 MG ECTAB PO SCH (08:26)
[2023-05-10] MEDS: CHOLECALCIFEROL 125 MCG (5,000 UNITS) TAB PO SCH (08:26)
[2023-05-10 08:29] LABS: ANTI-Xa, UFH(UnfractionatedHep 0.24 IU/ml (0.3-0.7)
--- NOTE | 2023-05-10 08:31 | Electrocardiogram Report ---
Test Reason : Blood Pressure : / mmHG Vent. Rate : 156 BPM Atrial Rate : 000 BPM P-R Int : 000 ms QRS Dur : 128 ms QT Int : 324 ms P-R-T Axes : 000 -05 109 degrees QTc Int : 522 ms Probable Atrial flutter Left bundle branch block Abnormal ECG When compared with ECG of 01-NOV-2016 02:08, Vent. rate has increased BY 83 BPM Sinus rhythm no longer present Confirmed by Juarez Barboza ([id number]) on 05/10/2023 8:30:57 AM Referred By: REFERRED SELF Confirmed By:Juarez Barboza
--- NOTE | 2023-05-10 08:33 | Electrocardiogram Report ---
Test Reason : Blood Pressure : / mmHG Vent. Rate : 133 BPM Atrial Rate : 133 BPM P-R Int : 142 ms QRS Dur : 134 ms QT Int : 334 ms P-R-T Axes : -27 -09 121 degrees QTc Int : 497 ms Atrial flutter vs. Sinus tachycardia Left bundle branch block Abnormal ECG When compared with ECG of 09-MAY-2023 19:33, HR has decreased by 23 bpm Otherwise no significant change Confirmed by Juarez Barboza ([id number]) on 05/10/2023 8:33:31 AM Referred By: REFERRED SELF Confirmed By:Juarez Barboza
--- NOTE | 2023-05-10 08:38 | Electrocardiogram Report ---
Test Reason : Blood Pressure : / mmHG Vent. Rate : 100 BPM Atrial Rate : 100 BPM P-R Int : 160 ms QRS Dur : 136 ms QT Int : 400 ms P-R-T Axes : 051 -15 136 degrees QTc Int : 516 ms Normal sinus rhythm Left bundle branch block Abnormal ECG When compared with ECG of 09-MAY-2023 20:27, HR has decreased by 33 bpm Sinus rhythm now present Confirmed by Juarez Barboza ([id number]) on 05/10/2023 8:37:30 AM Referred By: REFERRED SELF Confirmed By:Juarez Barboza
[2023-05-10 09:36] LABS: iSTAT Creatinine 1.4 mg/dl (0.6-1.3); iSTAT Hemoglobin 13.3 g/dl (12.0-16.0); iSTAT Ionized Calcium 1.12 mmol/l (1.12-1.32); iSTAT Potassium 4.1 mmol/L (3.3-5.0)
[2023-05-10] MEDS: DOXYCYCLINE HYCLATE 100 MG in DEXTROSE 5% MINI-B 100 ML IV SCH (10:49)
[2023-05-10] MEDS: PNEUMOCOCCAL VACCINE (PCV20) 20-VAL CONJ-DIP CRM/PF 0.5 ML SYR IM ONE (10:50)
[2023-05-10] MEDS: INFLUENZA VACCINE HIGH-DOSE (HD-IIV4) PF 65+ 0.7mL SYR IM ONE (10:50)
--- NOTE | 2023-05-10 11:08 | Cardiology Consultation ---
Date of Consultation May 10, 2023 Assessment & Plan (1) Tachycardia: 73-year-old woman with history of emphysema and multiple vascular risk factors (DM, HTN, dyslipidemia) admitted yesterday after abrupt onset dyspnea without chest pain, noted to have "wide-complex tachycardia" which in retrospect appears to be probable atrial flutter with left bundle branch block. As noted, review of telemetry suggests a paroxysmal initial rhythm with an abrupt decrease in heart rate from 156 bpm to 133 bpm, then subsequent gradual slowing afterwards. Most likely atrial flutter with 2-1 AV block, however cannot exclude the possibility of sinus tachycardia secondary to extreme physiologic stress. At this point, would treat as atrial tachydysrhythmia, agree with amiodarone. Can change from IV to oral amiodarone 200 mg 3 times daily for several days, then twice daily for several weeks, then daily. (2) LBBB (left bundle branch block): Not new, noted on 2017 ECG. (3) Elevated troponin: Marked troponin elevation and significant anteroapical wall motion abnormality are consistent with acute infarct, but the absence of chest pain/presence of severe hemodynamic & adrenergic stressors (marked hypertension/hypoxemia/bronchospasm) raises the likelihood that this represents stress cardiomyopathy (Takotsubo syndrome). Nonetheless, given the multiple vascular risk factors, will be important to clarify the status of her coronaries. Given the possibility this represented a thrombotic event, would continue intravenous heparin and aspirin. Plan for cardiac catheterization tomorrow, sooner if she develops any further chest discomfort, she was asymptomatic at the time of my evaluation. Would also recommend initiation of at least low-dose beta-romero, although her hemodynamics are favorable it would be important to initiate beta-romero in the context of possible stress-induced cardiomyopathy. Could start with metoprolol tartrate 25 mg PO every 8 hours. (4) Apical myocardial infarction: Infarct versus stress cardiomyopathy, as above. (5) Hypomagnesemia: No clear etiology for this, she is a coffee drinker but denies any diuretic use or diarrhea. Agree with IV and would continue with oral magnesium supplementation to maintain magnesium level ideally at or above 2.0. Certainly, this could be a contributing but remediable factor in relation to her dysrhythmia. (6) Emphysema lung: No active bronchospasm currently. Possibility that increased pollen counts yesterday elicited bronchospasm as initial event, consider antihistamine such as loratadine or fexofenadine. History of Present Illness Reason for Consultation: Wide Complex Tachycardia Requesting Physician: Zenon Su MD Attending Physician: Zenon Su MD History of Present Illness 73-year-old woman with history of emphysema, vascular risk factors (HTN, dyslipidemia, DM), but no prior cardiac history, who had abrupt onset of dyspnea/wheezing, brought to the emergency room where she was found to have wide-complex tachycardia. At recent baseline, patient notes that she can perform all activities of daily living without dyspnea or chest discomfort. She has not had prior history of tachypalpitations. She was gardening, she did note some sneezing and rhinorrhea (has history of allergic rhinitis), but otherwise felt well until abrupt onset of severe dyspnea with audible wheezing. She denies noting chest pain at any time. ER evaluation notable for hypertension, diffuse bronchospasm, hypoxemia, and wide-complex tachycardia. Chest CT showed no evidence of pulmonary embolism but suggested multilobar pneumonia. Troponin increased from 146 to peak of 3850 thus far. Magnesium was 1.4. She was treated with oxygen, amiodarone, magnesium IV supplement, IV heparin, and antibiotics and her condition rapidly improved. At the time my evaluation this morning, she was comfortable and denied any dyspnea, chest pain, or any other somatic complaints. Allergies Allergy/AdvReac Type Severity Reaction Status Date / Time canagliflozin [From Invokana] AdvReac Intermediate Yeast Verified 05/09/23 19:59 Infection dapagliflozin [From Farxiga] AdvReac Intermediate Yeast Verified 05/09/23 19:59 Infection dulaglutide [From [facility]] AdvReac nausea and Verified 05/09/23 19:59 vomiting Home Medications Medication Instructions Recorded Confirmed Type aspirin 81 mg tablet,delayed 81 mg PO DAILY #30 tabs 09/20/18 05/09/23 Rx release (Adult Low Dose Aspirin) blood-glucose meter (Blood Glucose #1 ea 04/22/22 12/16/22 Rx Monitoring kit) lisinopril 5 mg tablet 5 mg PO DAILY #90 tabs 04/29/22 05/09/23 Rx sitagliptin phosphate 100 mg tablet 100 mg PO DAILY #90 tabs 11/17/22 05/09/23 Rx pen needle, diabetic 31 gauge x #100 ea 12/10/22 12/16/22 Rx 1/4" ketoconazole 2 % topical cream 1 applic topical BID #30 grams 01/13/23 05/09/23 Rx fluticasone propionate 50 2 spray intranasal DAILY #16 grams 03/08/23 05/09/23 Rx mcg/actuation nasal spray,suspension metformin 500 mg tablet,extended 1,000 mg (2 x 500 mg) PO BID #360 03/17/23 05/09/23 Rx release 24 hr tabs loratadine 10 mg tablet (Allergy 10 mg PO DAILY #90 tabs 03/22/23 05/09/23 Rx Relief (loratadine)) ferrous sulfate 325 mg (65 mg 325 mg PO TID 90 days #270 tabs 04/08/23 05/09/23 Rx iron) tablet calcium carbonate 600 mg-vitamin 1 cap PO DAILY 04/26/23 05/09/23 History D3 5 mcg (200 unit) capsule (Calcium 600 + D(3)) cholecalciferol (vitamin D3) 125 125 mcg PO DAILY 04/26/23 05/09/23 History mcg (5,000 unit) capsule cinnamon bark 500 mg capsule 500 mg PO DAILY 04/26/23 05/09/23 History folic acid 20 mg capsule 80 mg PO DAILY 04/26/23 05/09/23 History red beet root 250 mg-sour mcgarry 1 tab PO DAILY 04/26/23 05/09/23 History extract 0.5 mg chewable tablet insulin glargine 100 unit/mL (3 18 unit (0.18 mL) subcut QPM #15 mL 04/27/23 05/09/23 Rx mL) subcutaneous pen (Basaglar KwikPen U-100 Insulin) atorvastatin 20 mg tablet 20 mg PO QPM #90 tabs 05/10/23 Rx fenofibrate 54 mg tablet 54 mg PO DAILY #90 tabs 05/10/23 Rx Patient History Medical History Positive colorectal cancer screening using Cologuard test Emphysema lung Vitamin B 12 deficiency Pulmonary nodule Osteopenia after menopause Last DEXA scan noted January 2019-AP spine T-score-0.3 and femur-2.1 Anemia Tobacco dependence History of bleeding disorder HLD (hyperlipidemia) HTN (hypertension) Diabetes Surgical History No pertinent past surgical history Family History Mother Diabetes Hypertension Father Diabetes Hypertension Sister Diabetes Hypertension Breast cancer, Onset Age: 38 Brother Diabetes Hypertension Denies family history of Ovarian cancer Prostate cancer Myocardial infarction Colorectal cancer Social History Smoking Status: Former smoker Tobacco Type: Cigarettes Age Quit Using Tobacco: 70; packs per day: 0.5; Second Hand Exposure: Yes; Do You Dip or Chew Tobacco: No; Tobacco Cessation Education Requested by Patient: No Hx Alcohol Use: No Hx Substance Use: No Preferred Language: Vincentian Communication Ability: Effective Visual Impairment: No Limitations Hearing Ability: Normal Primer Powder Blender Wet Required: No Beliefs That Will Affect Care: None marital status: Current Living Situation: Spouse current occupational status: retired current occupation: housewife or homemaker How many Children do You have: 3 Other Information That Helps Us Care for You: No Feels Safe at Home: Yes Childhood Exposure to Second-Hand Smoke: No Diet: regular Diet Comment: regular caffeine: Yes during the past year weight has: remained stable Dental Care, Regularly: Yes Physical Activity Frequency: Daily Seatbelt Use: always Sunscreen Use: Yes Assistive Devices: None Physical Exam Physical Exam: No distress. Appears comfortable. Afebrile currently, Tmax 100.4. BP normotensive. Pulse 79 bpm and regular. Respirations 25 but unlabored. Skin: no ecchymoses or generalized lesions. HEENT: unremarkable. Neck: JVP at the clavicle at 90 degrees, no carotid bruits. Lungs: Mildly decreased breath sounds with few rhonchi right base, generally clear with no current bronchospasm. Cardiac: regular rhythm, normal S1, readily audible minimally decreased A2, 2/6 systolic ejection murmur right upper sternal border radiating faintly to the carotids, no diastolic murmur. Abdomen: benign. Extremities: no edema, pulses intact. Neurologic: normal affect and conversation, nonfocal. Results & Data Laboratory Results Troponin values 146, 98, 2025, 3850. Initial magnesium 1.4, normalized today. WBC 21.27, hemoglobin 10.4, normal platelet count. Sodium 133, potassium 3.8, BUN 19, creatinine 1.14 (down from 1.42 yesterday). TSH was normal. Diagnostic Findings Initial ECG shows wide-complex tachycardia 156 bpm, based on subsequent ECGs it appears she has a left bundle branch block, morphology in the first ECG is similar suggesting that she has either sinus tachycardia or atrial flutter rather than ventricular tachycardia. Compared with 2017 ECG, ventricular rate i ncreased by 83 bpm sinus rhythm is no longer clearly present. Of note, left bundle branch block noted on prior ECG as well. Second ECG shows wide-complex tachycardia 133 bpm, P waves are suggestive but not conclusive, could be atrial flutter or sinus tachycardia. Her third ECG showed sinus rhythm at 100 bpm with left bundle branch block. Review of telemetry suggest that her initial heart rate of 156 bpm was sustained and paroxysmal, it is abruptly dropped to 133 bpm range and then very gradually return towards normal. Based on this, initial rhythm may have been atrial flutter, followed by sinus tachycardia/sinus rhythm, all with left bundle branch block. Chest x-ray showed multifocal airspace opacities. Chest CT with similar findings. Echocardiogram today showed mildly dilated left ventricle with EF 35 to 40%, anteroapical akinesis, normal RV size and systolic function, mild aortic stenosis. PG Care Time/CCT Total # of Minutes Spent Total Time Spent with Patient: Total time spent is greater than 50% in coordination of care (as documented) at patient's floor/unit and/or counseling patient: Coding Level of Care Code 09623 INT INP/OBS CARE 3/75MIN Diagnoses Tachycardia R00.0 LBBB (left bundle branch block) I44.7 Elevated troponin R79.89 Apical myocardial infarction I21.29 Hypomagnesemia E83.42 Emphysema lung J43.9
--- NOTE | 2023-05-10 14:26 | XCELERA ---
[id number] \\[id number]
--- NOTE | 2023-05-10 14:42 | Hospitalist Progress Note ---
Date of Service May 10, 2023 Assessment & Plan (1) Apical myocardial infarction: Plan: Echocardiogram findings reviewed Infarct versus stress cardiomyopathy Plan for cardiac catheterization tomorrow (2) MAIA (acute kidney injury): Plan: Creatinine elevated at 1.4, baseline 1 Hold lisinopril Likely secondary to hypovolemia Resolved with IV fluid (3) Hypomagnesemia: Plan: Replete with IV and p.o. magnesium Could be playing a role in the arrhythmia (4) Elevated troponin: Plan: Significant troponin elevation with anteroapical wall motion abnormality on echocardiogram Continue IV heparin drip and aspirin Plan for cardiac catheterization tomorrow No chest pain Start metoprolol 25 mg p.o. 3 times daily (5) Pneumonia: Plan: Patient presented with shortness of breath, hypoxia and was found to have multilobar infiltrates on CT Coronavirus positive, non-COVID Likely viral pneumonia Being covered with ceftriaxone and doxycycline for community-acquired pneumonia (6) Tachycardia: Plan: Presented with wide-complex tachycardia Hypomagnesemia noted Unclear etiology Troponins rising without any chest pain Cardiology involved Currently on IV amiodarone drip, will switch to p.o. amiodarone Start metoprolol 25 mg p.o. 3 times daily (7) Diabetes: Plan: Hold metformin and Sitagliptin Continue 18 units Lantus with sliding scale Hold lisinopril in the setting of acute kidney injury Continue atorvastatin and fenofibrate Admission and Anticipated Discharge Date Admission Date: May 09, 2023 Subjective Patient feels well at this time. Denies any chest pain or shortness of breath. Denies palpitations. Now on room air. Review of Systems Review of Systems: All systems reviewed & are unremarkable except as noted in Subjective Physical Exam Physical Exam: General: Awake, conversant Heart: S1, S2/regular rate and rhythm, no murmur rubs or gallops Lungs: Clear to auscultation bilaterally. Normal effort Abdomen: Soft/nontender/nondistended. No hepatosplenomegaly Extremities: No clubbing/cyanosis. No edema Behavior: Appropriate, cooperative Results & Data Results & Data Vital Signs (Past 12 Hours) Vital Signs Temp Pulse Pulse Resp BP BP Pulse Ox 05/10/23 13:39 05/10/23 09:00 115/63 05/10/23 09:00 79 25 H 98 05/10/23 08:00 109/74 05/10/23 08:00 80 26 H 96 05/10/23 08:00 79 05/10/23 07:00 85 30 H 96 05/10/23 07:00 109/75 05/10/23 04:00 37.2 C 90 18 129/84 100 O2 Del Method O2 Flow Rate 05/10/23 13:39 Room Air 05/10/23 09:00 05/10/23 09:00 05/10/23 08:00 05/10/23 08:00 05/10/23 08:00 05/10/23 07:00 05/10/23 07:00 05/10/23 04:00 Nasal Cannula 2 Laboratory Results Abnormal lab results 05/09/23 05/09/23 05/09/23 Range/Units 19:36 19:39 19:43 WBC 20.91 H (4.8-10.8) K/ul RBC (4.20-5.40) M/uL Hgb (12.0-16.0) g/dl Hct 36.8 L (37.0-47.0) % Neut # (Auto) 18.98 H (1.40-6.50) K/uL Lymph # (Auto) 0.75 L (1.20-3.40) K/uL [place] # (Auto) 0.96 H (0.11-0.59) K/uL Heparin Anti-Xa, Unfract < 0.10 L (0.3-0.7) IU/ml Sodium 134 L (136-145) mmol/L Carbon Dioxide 20 L (21-32) mmol/L POC Total CO2 21 L (24-31) mmol/L POC BUN 22 H (7-18) mg/dl Creatinine 1.42 H (0.6-1.2) mg/dl POC Creatinine 1.4 H (0.6-1.3) mg/dl Glucose 267 H (70-99(Fasting)) mg/dl POC Glucose (70-99) mg/dl POC Glucose (other) 269 H (70-99) mg/dl Calcium (8.6-10.3) mg/dl Magnesium 1.4 L (1.7-2.4) mg/dl Troponin I High Sens 146.8 H* (0-14) pg/ml Globulin 4.1 H (2.5-4.0) gm/dl Nasal Screen MRSA (PCR) (Negative) Coronavirus NL63 (PCR) (NotDetected) 05/09/23 05/09/23 05/10/23 Range/Units 19:44 21:18 01:38 WBC (4.8-10.8) K/ul RBC (4.20-5.40) M/uL Hgb (12.0-16.0) g/dl Hct (37.0-47.0) % Neut # (Auto) (1.40-6.50) K/uL Lymph # (Auto) (1.20-3.40) K/uL [place] # (Auto) (0.11-0.59) K/uL Heparin Anti-Xa, Unfract (0.3-0.7) IU/ml Sodium (136-145) mmol/L Carbon Dioxide (21-32) mmol/L POC Total CO2 (24-31) mmol/L POC BUN (7-18) mg/dl Creatinine (0.6-1.2) mg/dl POC Creatinine (0.6-1.3) mg/dl Glucose (70-99(Fasting)) mg/dl POC Glucose 266 H (70-99) mg/dl POC Glucose (other) (70-99) mg/dl Calcium (8.6-10.3) mg/dl Magnesium (1.7-2.4) mg/dl Troponin I High Sens 988.7 H* D (0-14) pg/ml Globulin (2.5-4.0) gm/dl Nasal Screen MRSA (PCR) (Negative) Coronavirus NL63 (PCR) DETECTED A (NotDetected) 05/10/23 05/10/23 05/10/23 Range/Units 04:36 07:29 07:32 WBC 21.72 H (4.8-10.8) K/ul RBC 3.53 L (4.20-5.40) M/uL Hgb 10.4 L (12.0-16.0) g/dl Hct 29.7 L (37.0-47.0) % Neut # (Auto) (1.40-6.50) K/uL Lymph # (Auto) (1.20-3.40) K/uL [place] # (Auto) (0.11-0.59) K/uL Heparin Anti-Xa, Unfract 0.24 L (0.3-0.7) IU/ml Sodium 133 L (136-145) mmol/L Carbon Dioxide 20 L (21-32) mmol/L POC Total CO2 (24-31) mmol/L POC BUN (7-18) mg/dl Creatinine (0.6-1.2) mg/dl POC Creatinine (0.6-1.3) mg/dl Glucose 167 H (70-99(Fasting)) mg/dl POC Glucose 179 H (70-99) mg/dl POC Glucose (other) (70-99) mg/dl Calcium 8.0 L (8.6-10.3) mg/dl Magnesium (1.7-2.4) mg/dl Troponin I High Sens 2825.7 H* D (0-14) pg/ml Globulin (2.5-4.0) gm/dl Nasal Screen MRSA (PCR) (Negative) Coronavirus NL63 (PCR) (NotDetected) 05/10/23 05/10/23 05/10/23 Range/Units 09:54 11:20 Unknown WBC (4.8-10.8) K/ul RBC (4.20-5.40) M/uL Hgb (12.0-16.0) g/dl Hct (37.0-47.0) % Neut # (Auto) (1.40-6.50) K/uL Lymph # (Auto) (1.20-3.40) K/uL [place] # (Auto) (0.11-0.59) K/uL Heparin Anti-Xa, Unfract (0.3-0.7) IU/ml Sodium (136-145) mmol/L Carbon Dioxide (21-32) mmol/L POC Total CO2 (24-31) mmol/L POC BUN (7-18) mg/dl Creatinine (0.6-1.2) mg/dl POC Creatinine (0.6-1.3) mg/dl Glucose (70-99(Fasting)) mg/dl POC Glucose 227 H (70-99) mg/dl POC Glucose (other) (70-99) mg/dl Calcium (8.6-10.3) mg/dl Magnesium (1.7-2.4) mg/dl Troponin I High Sens 3850.4 H* D (0-14) pg/ml Globulin (2.5-4.0) gm/dl Nasal Screen MRSA (PCR) Positive A (Negative) Coronavirus NL63 (PCR) (NotDetected) Diagnostic Findings Chest X-Ray 05/09/23 19:44 XR chest 1V portable CLINICAL HISTORY: SOB TECHNIQUE: Single frontal radiograph of the chest was obtained. Comparison: Comparison is made to chest radiograph a 11/01/[address] chest 06/17/2022 FINDINGS: No lines and tubes are seen. The cardiomediastinal silhouette is normal. Multifocal airspace opacities are seen. No evidence of pleural effusion or pneumothorax. IMPRESSION: Multifocal airspace opacities may represent atelectasis, pneumonia, and/or aspiration. ACT 112: Negative or not required by law. Electronically signed by: Herrera Arce M.D. 05/10/2023 7:02 AM Chest CTA 05/09/23 20:21 Exam(s): CTA CHEST IV Amt: 117 ml optiray 320 EXAM: CT Angiography Chest With Intravenous Contrast CLINICAL HISTORY: Reason for exam: PE vs PNA vs CHF. TECHNIQUE: Axial computed tomographic angiography images of the chest with intravenous contrast. CTDI is 29 mGy and DLP is 569.16 mGy-cm. Automated exposure control was utilized for the study. A dose lowering technique was utilized adhering to the principles of ALARA. MIP reconstructed images were created and reviewed. COMPARISON: No relevant prior studies available. FINDINGS: Artifacts: Respiratory motion artifact limits evaluation. Pulmonary arteries: Unremarkable. No acute pulmonary embolism. Aorta: No acute findings. No thoracic aortic aneurysm. Lungs: Patchy bilateral airspace consolidations, concerning for multilobar pneumonia. No pleural effusion. Pleural space: No pneumothorax. Heart: Unremarkable. No cardiomegaly. No significant pericardial effusion. No evidence of RV dysfunction. Bones/joints: No acute fracture. No dislocation. Soft tissues: Unremarkable. Lymph nodes: Unremarkable. No enlarged lymph nodes. IMPRESSION: 1. No acute pulmonary embolism. 2. Patchy bilateral airspace consolidations, concerning for multilobar pneumonia. No pleural effusion. Electronically signed by: Félix Stearns MD 05/09/23 21:05 PM PG Care Time/CCT Total # of Minutes Spent Total Time Spent with Patient: Total time spent is greater than 50% in coordination of care (as documented) at patient's floor/unit and/or counseling patient: Coding Level of Care Code 18484 SUB INP/OBS CARE 2MIN Diagnoses Apical myocardial infarction I21.29 MAIA (acute kidney injury) N17.9 Hypomagnesemia E83.42 Elevated troponin R79.89 Pneumonia J18.9 Tachycardia R00.0 Diabetes E11.9
[2023-05-10] MEDS: AMIODARONE 200 MG TAB PO SCH (15:16)
[2023-05-10] MEDS: MAGNESIUM OXIDE 400 MG TAB PO SCH (15:16)
[2023-05-10 16:12] LABS: ANTI-Xa, UFH(UnfractionatedHep 0.17 IU/ml (0.3-0.7)
[2023-05-10] MEDS: ATORVASTATIN 20 MG TAB PO SCH (20:53)
[2023-05-10] MEDS: METOPROLOL TARTRATE 25 MG TAB PO SCH (20:53)
[2023-05-10] MEDS: cefTRIAXone SODIUM 1,000 MG in DEXTROSE 5 % MINI-B 50 ML IV SCH (20:54)
--- NOTE | 2023-05-10 21:09 | Communication Note ---
Was febrile this evening with Tmax= 39.1 per nursing. Evaluated at bedside; No acute distress, no increased work of breathing. Remains stable on room air. Heart with RRR, Lungs clear auscultation B/L. Blood cultures pending. MRSA nares +. Will switch antibiotics to Zosyn/Linezolid. Date of Service: May 10, 2023
[2023-05-10] MEDS: PIPER/TAZO 4.5g in D5W MINI-B 100 ML IV ONE (21:33)
[2023-05-10] MEDS: LINEZOLID 600 MG/300 ML BAG IV SCH (21:34)
[2023-05-10 23:06] LABS: ANTI-Xa, UFH(UnfractionatedHep 0.33 IU/ml (0.3-0.7)
[2023-05-11] MEDS: PIPERACILLIN/TAZOBACTAM 4.5 GM in DEXTROSE 5% MINI-B 100 ML IV SCH (02:27)
[2023-05-11 05:18] LABS: Albumin Globulin Ratio 0.9 (0.9-2); Albumin Level 3.3 gm/dl (3.4-5.0); BUN Creatinine Ratio 14.6 (10-20); Bilirubin,Total 0.4 mg/dl (0.2-1.0); Calcium 8.2 mg/dl (8.6-10.3); Creatinine Clr Calc Pharmacy 40.3 ml/min; Est GFR (African American) 50.7 ml/min; Est GFR (Non-African American) 43.8 ml/min; Globulin 3.6 gm/dl (2.5-4.0); Magnesium 1.8 mg/dl (1.7-2.4); Total Protein 6.9 gm/dl (6.0-8.3)
[2023-05-11 05:24] LABS: ANTI-Xa, UFH(UnfractionatedHep 0.31 IU/ml (0.3-0.7)
[2023-05-11 05:46] LABS: Basophils # (auto) 0.06 K/uL (0.00-0.20); Basophils % (auto) 0.4 %; Hematocrit (blood only) 33.6 % (37.0-47.0); Hemoglobin 10.8 g/dl (12.0-16.0); Immature Granulocytes # (auto) 0.11 K/uL (0.01-0.20); Immature Granulocytes % (auto) 0.8 %; Lymphocytes # (auto) 1.25 K/uL (1.20-3.40); Lymphocytes % (auto) 8.6 %; Mean Corpuscular Hemoglobin 28.6 pg (25.0-34.0); Mean Corpuscular Hgb Conc 32.1 g/dL (32.0-36.0); Mean Corpuscular Volume 88.9 fL (80.0-100.0); Mean Platelet Volume 11.3 fL (9.4-12.4); Monocytes # (auto) 0.46 K/uL (0.11-0.59); Monocytes % (auto) 3.2 %; Neutrophils # (auto) 12.64 K/uL (1.40-6.50); Platelet Count 269 K/uL (130-400); RDW Coefficient of Variation 14.8 % (11.5-14.5); Red Blood Count 3.78 M/uL (4.20-5.40); White Blood Count 14.52 K/ul (4.8-10.8)
--- NOTE | 2023-05-11 06:18 | Billing Data ---
Date of Service May 11, 2023 Coding Level of Care Code 66957 INT INP/OBS CARE
--- NOTE | 2023-05-11 10:54 | Pre Anesthesia Assessment ---
Date of Service May 11, 2023 Pre Sedation Assessment Vital Signs Temp Pulse Pulse Resp BP BP Pulse Ox 05/11/23 08:00 05/11/23 08:00 75 05/11/23 07:23 37.2 C 84 22 134/73 93 05/11/23 03:34 36.6 C 77 17 113/77 95 05/11/23 01:50 37.1 C 05/11/23 00:00 05/11/23 00:00 73 05/10/23 22:58 36.9 C 71 21 99/59 L 92 05/10/23 22:02 05/10/23 21:44 37.9 C H 05/10/23 20:30 39.1 C H 05/10/23 19:32 38.3 C H 114 H 25 H 151/88 H 94 05/10/23 15:46 36.7 C 65 16 124/52 L 93 05/10/23 15:00 124/75 05/10/23 15:00 78 24 05/10/23 14:00 122/85 05/10/23 14:00 74 22 05/10/23 13:39 05/10/23 13:00 121/68 05/10/23 13:00 77 18 05/10/23 12:00 36.7 C 106/66 05/10/23 12:00 79 17 94 05/10/23 11:00 123/71 Pulse Ox O2 Del Method O2 Del Method 05/11/23 08:00 Room Air 05/11/23 08:00 05/11/23 07:23 Room Air 05/11/23 03:34 Room Air 05/11/23 01:50 05/11/23 00:00 93 Room Air 05/11/23 00:00 05/10/23 22:58 Room Air 05/10/23 22:02 Room Air 05/10/23 21:44 05/10/23 20:30 05/10/23 19:32 Room Air 05/10/23 15:46 Room Air 05/10/23 15:00 05/10/23 15:00 05/10/23 14:00 05/10/23 14:00 05/10/23 13:39 Room Air 05/10/23 13:00 05/10/23 13:00 05/10/23 12:00 05/10/23 12:00 03/05/24 11:00 Cardiovascular RRR, no murmur, no edema Respiratory normal respiratory effort, lungs clear to auscultation Additional Comments: coughing, decreased air movement Pre-Sedation Airway Assessment Smoking Status: Former smoker mallampati 3 ASA 4 Notes The planned sedation has been discussed with the patient. Informed Consent was obtained. I have identified the patient, determined the appropriateness of sedation and have assessed the patient immediately prior to the procedure. All medicine(s) and interventions are by my order.
--- NOTE | 2023-05-11 12:01 | Post Anesthesia Assessment ---
Date of Service May 11, 2023 Post Sedation Assessment Vital Signs Temp Pulse Pulse Resp BP BP Pulse Ox 05/11/23 11:03 37.0 C 65 18 138/66 97 05/11/23 08:00 05/11/23 08:00 75 05/11/23 07:23 37.2 C 84 22 134/73 93 05/11/23 03:34 36.6 C 77 17 113/77 95 05/11/23 01:50 37.1 C 05/11/23 00:00 05/11/23 00:00 73 05/10/23 22:58 36.9 C 71 21 99/59 L 92 05/10/23 22:02 05/10/23 21:44 37.9 C H 05/10/23 20:30 39.1 C H 05/10/23 19:32 38.3 C H 114 H 25 H 151/88 H 94 05/10/23 15:46 36.7 C 65 16 124/52 L 93 05/10/23 15:00 124/75 05/10/23 15:00 78 24 05/10/23 14:00 122/85 05/10/23 14:00 74 22 05/10/23 13:39 05/10/23 13:00 121/68 05/10/23 13:00 77 18 05/10/23 12:00 36.7 C 106/66 05/10/23 12:00 79 17 94 Pulse Ox O2 Del Method O2 Del Method 05/11/23 11:03 Room Air 05/11/23 08:00 Room Air 05/11/23 08:00 05/11/23 07:23 Room Air 05/11/23 03:34 Room Air 05/11/23 01:50 05/11/23 00:00 93 Room Air 05/11/23 00:00 05/10/23 22:58 Room Air 05/10/23 22:02 Room Air 05/10/23 21:44 05/10/23 20:30 05/10/23 19:32 Room Air 05/10/23 15:46 Room Air 05/10/23 15:00 05/10/23 15:00 05/10/23 14:00 05/10/23 14:00 05/10/23 13:39 Room Air 05/10/23 13:00 05/10/23 13:00 05/10/23 12:00 05/10/23 12:00 Recovery Score Activity: Moves 4 extremities Respiration: Deep Breath/Cough Circulation: +/-20% PreAnes Value Consciousness: Fully Awake Oxygen Saturation: > 92% On Room Air Discharge Sedation Level of Care: Fast Track Phase II Post Sedation Plan On clinical assessment, the patient appears to have tolerated the sedation without complications. Patient is recovering as anticipated. Patient will continue to be monitored by nursing and may be discharged when sedation discharge criteria are met per below protocol. Upon Completions of procedure up to 15 minutes continue every 5 minute vital signs and the P.A.R. score; then discharge to a Phase I or Fast Track to Phase II per the following guidelines: * Discharge Patient to appropriate Phase II area if PAR is 8 or greater or return to pre- procedure baseline. The post - procedure orders will be as directed. * If PAR score is less than 8 or not return to pre-procedure baseline then patient will follow Phase I monitoring till PAR is reached for Phase II. The Phase I may be done in procedure room or may call to secure a Phase I area. * If naloxone or flumazenil are used for reversal, hold in Phase I for continued monitoring from when last reversal dose was given for a minimum of 60 minutes or longer pending the nurse and/or physician discretion of patient condition before discharge to Phase II. Please call the Sedation Physician to re-evaluate and complete post-note for discharge to Phase II area. Do NOT discharge from procedure sedation or Phase 1 until post- sedation evaluation note is complete by procedure /sedation MD Sedation Discharge Instructions to be given to the patient at discharge to home. [facility] [place] Procedure Codes (Charges) Indication for Procedure Indication for procedure: NSTEMI Sedation/Anesthesia Procedure 1: Sedation/Anesthesia: 64650 Mod Sedation by the same physician;Init15 Min Child Age 5 & Up (INITIAL 15 MIN, START 1127) Total Sedation Time (minutes): 27 Procedure 2: Sedation/Anesthesia: 77631 Mod Sedation by the same physician; Ea [id number] Minutes (ADDITIONAL 12 MIN, END 1154) Total Sedation Time (minutes): 27
--- NOTE | 2023-05-11 12:25 | Hospitalist Progress Note ---
Date of Service May 11, 2023 Assessment & Plan (1) Tachycardia: Plan: - Wide complex tachycardia on admission, Was treated with amiodarone drip, now on p.o. amiodarone TTE shows apical and anterior wall akinesis with EF of 35 to 40% Cardiac catheterization planned for today Cardiology on board (2) Elevated troponin: Plan: Most likely non-ST elevation PA versus Takotsubo cardiomyopathy Significant troponin elevation with anteroapical wall motion abnormality on echocardiogram Continue IV heparin drip and aspirin Cardiac catheterization planned for today No chest pain Continue metoprolol 25 mg p.o. 3 times daily (3) Pneumonia: Plan: presented with shortness of breath, hypoxia and was found to have multilobar infiltrates on CT Coronavirus positive, non-COVID Likely viral pneumonia versus bacterial superimposition Spiked a fever last night Currently on Zosyn and Zyvox Follow blood cultures White count improving 21-14 (4) Emphysema lung: (5) Diabetes: Plan: - hold metformin, sitagliptin - continue 18units Lantus daily with SSI - last hemoglobin a1c= 7.7 04/26/23 (6) HTN (hypertension): Plan: - hold lisinopril in the setting of MAIA (7) HLD (hyperlipidemia): Plan: - continue atorvastatin, fenofibrate - updated lipid panel from 04/26/23; LDL=75 (8) MAIA (acute kidney injury): Plan: Creatine= 1.42, baseline= 1 Likely prerenal, resolved with hydration initially Now rising again. Creatinine today 1.2 Discontinue IV fluids Hold lisinopril Continue to trend (9) Hypomagnesemia: Plan: Replete with IV and p.o. magnesium Could be playing a role in the arrhythmia (10) Apical myocardial infarction: Plan: Echocardiogram findings reviewed Infarct versus stress cardiomyopathy Plan for cardiac catheterization today Admission and Anticipated Discharge Date Admission Date: May 09, 2023 Subjective Patient feels well at this time. Overnight, she spiked a fever that broke with Tylenol. Blood cultures were drawn and patient was started on Zyvox. Patient denies any chest pain or shortness of breath. Review of Systems Review of Systems: All systems reviewed & are unremarkable except as noted in Subjective Physical Exam Physical Exam: General: Awake, conversant Heart: S1, S2/regular rate and rhythm, no murmur rubs or gallops Lungs: Clear to auscultation bilaterally. Normal effort Abdomen: Soft/nontender/nondistended. No hepatosplenomegaly Extremities: No clubbing/cyanosis. No edema Behavior: Appropriate, cooperative Results & Data Results & Data Vital Signs (Past 12 Hours) Vital Signs Temp Pulse Pulse Resp BP Pulse Ox O2 Del Method 05/11/23 11:03 37.0 C 65 18 138/66 97 Room Air 05/11/23 08:00 Room Air 05/11/23 08:00 75 05/11/23 07:23 37.2 C 84 22 134/73 93 Room Air 05/11/23 03:34 36.6 C 77 17 113/77 95 Room Air 05/11/23 01:50 37.1 C Diagnostic Findings Abnormal lab results 05/10/23 05/10/23 05/10/23 Range/Units 15:36 16:07 20:03 WBC (4.8-10.8) K/ul RBC (4.20-5.40) M/uL Hgb (12.0-16.0) g/dl Hct (37.0-47.0) % RDW Std Deviation (36.4-46.3) fL RDW Coeff of Kim (11.5-14.5) % Neut # (Auto) (1.40-6.50) K/uL Heparin Anti-Xa, Unfract 0.17 L (0.3-0.7) IU/ml Sodium (136-145) mmol/L Carbon Dioxide (21-32) mmol/L Creatinine (0.6-1.2) mg/dl Glucose (70-99(Fasting)) mg/dl POC Glucose 147 H 120 H (70-99) mg/dl Calcium (8.6-10.3) mg/dl AST (13-39) U/L Troponin I High Sens 3807.0 H* (0-14) pg/ml Albumin (3.4-5.0) gm/dl 05/10/23 05/11/23 05/11/23 Range/Units 22:31 04:12 07:36 WBC 14.52 H (4.8-10.8) K/ul RBC 3.78 L (4.20-5.40) M/uL Hgb 10.8 L (12.0-16.0) g/dl Hct 33.6 L (37.0-47.0) % RDW Std Deviation 48.0 H (36.4-46.3) fL RDW Coeff of Kim 14.8 H (11.5-14.5) % Neut # (Auto) 12.64 H (1.40-6.50) K/uL Heparin Anti-Xa, Unfract (0.3-0.7) IU/ml Sodium 132 L (136-145) mmol/L Carbon Dioxide 20 L (21-32) mmol/L Creatinine 1.23 H (0.6-1.2) mg/dl Glucose 187 H (70-99(Fasting)) mg/dl POC Glucose 204 H (70-99) mg/dl Calcium 8.2 L (8.6-10.3) mg/dl AST 51 H (13-39) U/L Troponin I High Sens 4994.6 H* D (0-14) pg/ml Albumin 3.3 L (3.4-5.0) gm/dl PG Care Time/CCT Total # of Minutes Spent Total Time Spent with Patient: Total time spent is greater than 50% in coordination of care (as documented) at patient's floor/unit and/or counseling patient: Coding Level of Care Code 15357 SUB INP/OBS CARE 2/35MIN Diagnoses Tachycardia R00.0 Elevated troponin R79.89 Pneumonia J18.9 Emphysema lung J43.9 Diabetes E11.9 HTN (hypertension) I10 HLD (hyperlipidemia) E78.5 MAIA (acute kidney injury) N17.9 Hypomagnesemia E83.42 Apical myocardial infarction I21.29
[2023-05-11] MEDS: fentaNYL citrate PF 100 MCG/2 ML VIAL ONE (12:37)
[2023-05-11] MEDS: MIDAZOLAM HCL 1 MG/ML 2ML VIAL ONE (12:37)
[2023-05-11] MEDS: HEPARIN (PORCINE) 1000 UNIT/ML 10 ML (CATH LAB USE ONLY) ONE (12:37)
[2023-05-11] MEDS: OPTIRAY 350 ONE (12:38)
[2023-05-11] MEDS: niCARdipine HCL INJ 2.5 MG/ML 10 ML AMP ONE (12:38)
[2023-05-11] MEDS: NITROGLYCERIN/D5W 100MCG/ML 20ML SYR ONE (12:38)
--- NOTE | 2023-05-11 14:57 | Cardiology Progress Note ---
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 As such, mainstay of treatment is beta-romero therapy. Although amiodarone has significant beta-romero properties, it is unclear whether she will need to remain on this long-term, so favor continuing metoprolol. Could change from metoprolol to tartrate 25 mg 3 times daily to metoprolol succinate 50 mg once daily starting tomorrow. Will check follow-up echocardiogram tomorrow, often wall motion abnormalities improve within days, which would further bolster likelihood that this is Takotsubo syndrome. Continue aspirin for now, but this may not be necessary long-term. Can discontinue IV heparin and initiate apixaban 5 mg twice daily. (2) Tachycardia: Plan: Initial tachydysrhythmia felt to be either atrial flutter or sinus tachycardia. In the absence of any recurrent dysrhythmia, will need to decide whether ongoing antiarrhythmic therapy is necessary. Certainly, short-term amiodarone is warranted to reduce the possibility of tachydysrhythmia in the context of recent myocardial insult. Given concurrent beta-romero use and absence of dysrhythmia, recommend decreasing amiodarone to 200 mg today (could skip third dose), then 200 mg once daily starting tomorrow. Reasonable to anticoagulate in the near term, both given risk of recurrent atrial dysrhythmia as well as presence of apical wall motion abnormality (which could predispose to thrombus). However, in the absence of more definitive evidence for atrial flutter, may ultimately decide not to chronically anticoagulate. As noted, would change from IV heparin to apixaban. (3) LBBB (left bundle branch block): Plan: Chronic. (4) Emphysema lung: Plan: Significant underlying lung disease with fever and viral illness. Need to continue monitoring/managing to avoid recurrent bronchospasm, which appears to have been the precipitating factor in her decompensation. Admission and Anticipated Discharge Date Admission Date: May 09, 2023 Subjective Fever overnight (102.4 degrees), she does note a nonproductive cough and coronavirus returned positive (not COVID). She notes multiple family members have had colds recently. No chest pain at any time. No dyspnea at rest. Cardiac catheterization showed only mild coronary artery disease, no culprit lesion, echo findings most consistent with Takotsubo syndrome/stress cardiomyopathy. Telemetry showed sinus rhythm/sinus tachycardia overnight, no dysrhythmias. Physical Exam Physical Exam: No distress. Appe ars comfortable. A febrile currently, Tmax 102.4. BP no rmotensive. Pulse 61 bpm and regular . Respirations 26 but unlabored. Ski n: no ecchymoses o r generalized lesi ons. HEENT: unrem arkable. Neck: JV P at the clavicle at 90 degrees, no carotid bruits. L ungs: Moderately d ecreased breath so unds with prolonge d effort on forced exhalation, no ac cessory muscle use or obvious wheezi ng. Cardiac: reg ular rhythm, gabby l S1, readily ned ble minimally decr eased A2, 2/6 syst olic ejection murm ur right upper geeta rnal border radiat ing faintly to the carotids, no doan tolic murmur. Abd omen: benign. Ext remities: no edema , pulses intact. Neurologic: normal affect and conver sation, nonfocal. Results & Data Laboratory Results Troponin continued to increase to 4994. Sodium 132, BUN 18, creatinine 1.23 (1.14 yesterday). PG Care Time/CCT Total # of Minutes Spent Total Time Spent with Patient: Total time spent is greater than 50% in coordination of care (as documented) at patient's floor/unit and/or counseling patient: Coding Level of Care Code 09534 SUB INP/OBS CARE 3/50MIN Diagnoses Stress-induced cardiomyopathy I51.81 Tachycardia R00.0 LBBB (left bundle branch block) I44.7 Emphysema lung J43.9
--- NOTE | 2023-05-11 16:48 | Cardiac Catheterization ---
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 Cardiac Status Clinical evaluation leading to the procedure CAD Presenation: Non STEMI Anginal Classification: CCS II Heart Failure: NYHA Class: CCS III Cardiogenic Shock within 24 Hours: No Cardiac Arrest within 24 Hours: No Imaging Studies Past 6 Months: No Stress Studies Past 6 Months: No Coronary Anatomy Dominant: Co-Dominant Left Main (% Stenosis): Normal LAD (% Stenosis): Distal (30 to 40%) D1 (% Stenosis): Proximal (40%) D2 (% Stenosis): Normal Circumflex (% Stenosis): Mid (30%) and Distal (50%) OM1 (% Stenosis): Normal OM2 (% Stenosis): Proximal (30%) OM3 (% Stenosis): Normal L PL1 (% Stenosis): Normal L PL2 (% Stenosis): Normal L PDA (% Stenosis): Normal RCA (% Stenosis): Ostial (50%), Proximal (40%) and Distal (30%) R PDA (% Stenosis): Normal Diagnostic Physicians Name: Javed Cruz MD, PhD Closure Device Percutaneous Entry Location: Radial Closure Device: Radial Band Recommendations: Medical Therapy and/or Counseling Cardiac Cath Procedure Full Procedure Date May 11, 2023 Pre-Procedure Diagnosis Pre-Procedure Diagnosis: Non STEMI AUC Score AUC Score: 07 Post-Procedure Diagnosis Post-Procedure Diagnosis: Mild CAD Procedure(s) Performed Procedure(s) Performed: Coronary Angiography [employer] Guidance Counselor Javed Cruz MD, PhD Estimated Blood Loss Estimated Blood Loss: 10 cc Medication(s) Medication(s): Fentanyl, Heparin, Lidocaine 1%, Nicardipine, Nitroglycerin and Versed Summary of Findings Brief description: Patient was brought to the cardiac catheterization suite where she was shaved and prepped in a sterile fashion. Sedated using IV Versed and fentanyl. Soft tissues of the right wrist were anesthetized using 2 mL of 1% Xylocaine. The right radial artery was accessed with a modified Seldinger technique and a 6 Gabonese radial artery glide sheath was placed. Patient was provided anticoagulation with IV heparin and antispasmodics including nicardipine and nitroglycerin. All catheters were advanced and exchanged over a 0.035 J-tip wire. Left coronary angiography in orthogonal views with a 5 Gabonese Wynona 4 diagnostic catheter. Right coronary angiography was performed in orthogonal views with a 5 Gabonese multipurpose to catheter. Attempts were made with JR4, 3 DRC, AL-1, and AR-1. Diagnostic catheters were removed. Radial artery sheath was removed. Hemostasis was obtained using the vascular band. Patient remained hemodynamically stable and asymptomatic. She was returned to the recovery area. This ended the case. Coronary angiography findings: DGO-idlkz-pphgdwy vessel bifurcating into LAD and circumflex. No disease. LAD-proximal calcification without disease. Gives a large branching first diagonal which has proximal 40% stenosis. The mid LAD has luminal irregularities and then provides a small second diagonal which has no disease. Distally the LAD has 30 to 40% stenosis. UPt-gxatx-pdymzmn and codominant vessel. Proximal AV groove vessel has no disease. Gives a small OM 1. The mid segment then has focal less than 30% stenosis. It gives a large caliber branching OM 2 which has proximal 30% stenosis. The distal AV groove circumflex has diffuse disease of less than 50%. From mid arises a small OM 3, and a small to medium caliber posterolateral 1, and a large caliber posterolateral 2. There is also a medium caliber PDA. All the branch vessels have no significant disease. OXA-cuzss-devwqdk and codominant. There is an ostial up to 50% narrowing. Proximally there is a long eccentric 40% stenosis. The mid segment has no disease and the distal segment has only less than 30% narrowing. The vessel terminates in the PDA which is medium to large in caliber and has no disease. Summary: 1. Mild nonocclusive coronary artery disease as described. Marginal moderate disease of the distal circumflex and ostial RCA. 2. Recommend guideline directed medical therapy for secondary prevention of coronary disease to include; low-dose aspirin, high intensity statin therapy, beta-romero, and BETSY inhibitor/ARB given diabetes. Hemodynamics Rest Ao:: 92/57 mmHg Final Ao: 92/66 mmHg LV: Not performed Recommendations Recommendations: Medical Therapy and/or Counseling Radiation Exposure (mGy) 1891 mGy, fluoroscopy time 10.4 minutes Contrast (mls) 115 cc Anesthesia 1 mg Versed, 25 mcg fentanyl IV. Start time 1127, end time 1154 Procedural Complication(s) None Disposition Industrial [employer] Holding/Recovery I attest to the content of the Intraoperative Record and any orders documented therein. Any exceptions are noted below. [facility] [place] Codes Cardiac Catheterization Procedure 1: Cardiovascular Cath Procedures: 73169 Coronaries Moderate Sedation Procedure 1: Sedation/Anesthesia: 36608 Mod Sedation by the same physician;Init15 Min Child Age 5 & Up (Initial 15 min, start time 1127) Procedure 2: Sedation/Anesthesia: 90170 Mod Sedation by the same physician; Ea [id number] Minutes (Additional 12 min, end time 1154) PG Care Time/CCT Total # of Minutes Spent Total Time Spent with Patient: Total time spent is greater than 50% in coordination of care (as documented) at patient's floor/unit and/or counseling patient:
[2023-05-11] MEDS: STOP HEPARIN ONE (20:35)
[2023-05-11] MEDS: APIXABAN 5 MG TABLET PO SCH (20:41)
[2023-05-12] MEDS: AMIODARONE 200 MG TAB PO SCH (07:55)
[2023-05-12] MEDS: METOPROLOL SUCC 50MG EXT REL TAB PO SCH (07:56)
[2023-05-12 09:23] LABS: Hematocrit (blood only) 29.3 % (37.0-47.0); Hemoglobin 9.7 g/dl (12.0-16.0); Mean Corpuscular Hgb Conc 33.1 g/dL (32.0-36.0); Mean Corpuscular Volume 87.7 fL (80.0-100.0); Mean Platelet Volume 10.7 fL (9.4-12.4); Platelet Count 253 K/uL (130-400); RDW Coefficient of Variation 14.7 % (11.5-14.5); RDW Standard Deviation 47.7 fL (36.4-46.3); Red Blood Count 3.34 M/uL (4.20-5.40); White Blood Count 11.77 K/ul (4.8-10.8)
[2023-05-12 09:28] LABS: Calcium 8.4 mg/dl (8.6-10.3); Magnesium 1.9 mg/dl (1.7-2.4); Potassium 3.7 mmol/L (3.5-5.1)
[2023-05-12 09:34] LABS: BUN Creatinine Ratio 13.8 (10-20); Creatinine Clr Calc Pharmacy 36.7 ml/min; Est GFR (African American) 44.2 ml/min; Est GFR (Non-African American) 38.1 ml/min
--- NOTE | 2023-05-12 12:29 | XCELERA ---
[id number] \\[id number]
--- NOTE | 2023-05-12 12:59 | Hospitalist Progress Note ---
Date of Service May 12, 2023 Assessment & Plan (1) Tachycardia: Plan: - Wide complex tachycardia on admission, Was treated with amiodarone drip, now on p.o. 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 Significant troponin elevation with anteroapical wall motion abnormality on echocardiogram Repeat echo today did not show improvement Started on metoprolol succinate 50 mg daily for Continue aspirin for now (3) Pneumonia: Plan: presented with shortness of breath, hypoxia and was found to have multilobar infiltrates on CT Coronavirus positive, non-COVID Likely viral pneumonia versus bacterial superimposition Spiked a fever on 05/09 Chest x-ray findings could also be due to fluid overload in the setting of cardiomyopathy and with complaints of dyspnea on exertion Leukocytosis significantly improved No more fever spikes Discontinue Zosyn and Zyvox Will treat with Lasix instead Keflex started for right lower extremity cellulitis Blood cultures so far negative (4) Emphysema lung: (5) Diabetes: Plan: - hold metformin, sitagliptin - continue 18units Lantus daily with SSI - last hemoglobin a1c= 7.7 04/26/23 (6) HTN (hypertension): Plan: - hold lisinopril in the setting of MAIA (7) HLD (hyperlipidemia): Plan: - continue atorvastatin, fenofibrate - updated lipid panel from 04/26/23; LDL=75 (8) MAIA (acute kidney injury): Plan: Creatine= 1.42, baseline= 1 Likely prerenal, resolved with hydration initially Now rising again. Fluids discontinued In the setting of cardiomyopathy, this is most likely fluid overload Will treat with a dose of IV Lasix 40 mg x 1 now Monitor labs and urine output (9) Hypomagnesemia: Plan: Replete with IV and p.o. magnesium Could be playing a role in the arrhythmia (10) Apical myocardial infarction: (11) Stress-induced cardiomyopathy: Plan: Coronaries clean This is stress-induced Takotsubo cardiomyopathy Repeat echo did not show improvement in EF Currently on metoprolol succinate Amiodarone to prevent recurrent dysrhythmia Will treat with one-time dose of Lasix IV for fluid overload in the setting of dyspnea on exertion, trace lower extremity edema (12) Cellulitis of right lower extremity: Plan: Start Keflex Monitor for improvement Admission and Anticipated Discharge Date Admission Date: May 09, 2023 Subjective Patient complains of shortness of breath on exertion. She also complains of right leg pain and redness. Review of Systems Review of Systems: All systems reviewed & are unremarkable except as noted in Subjective Physical Exam Physical Exam: General: Awake, conversant Heart: S1, S2/regular rate and rhythm, no murmur rubs or gallops Lungs: Bibasilar crackles. Normal effort Abdomen: Soft/nontender/nondistended. No hepatosplenomegaly Extremities: No clubbing/cyanosis. Trace bilateral edema. Right lower extremity cellulitis Behavior: Appropriate, cooperative Results & Data Results & Data Vital Signs (Past 12 Hours) Vital Signs Temp Pulse Pulse Resp BP Pulse Ox O2 Del Method 05/12/23 08:00 69 05/12/23 04:00 63 05/12/23 04:00 37.1 C 62 18 109/60 94 Room Air Laboratory Results Abnormal lab results 05/11/23 05/11/23 05/12/23 Range/Units 16:03 20:48 02:05 WBC (4.8-10.8) K/ul RBC (4.20-5.40) M/uL Hgb (12.0-16.0) g/dl Hct (37.0-47.0) % RDW Std Deviation (36.4-46.3) fL RDW Coeff of Kim (11.5-14.5) % Sodium (136-145) mmol/L Carbon Dioxide (21-32) mmol/L Creatinine (0.6-1.2) mg/dl Glucose (70-99(Fasting)) mg/dl POC Glucose 201 H 132 H 139 H (70-99) mg/dl Calcium (8.6-10.3) mg/dl 05/12/23 05/12/23 05/12/23 Range/Units 07:29 08:56 11:01 WBC 11.77 H (4.8-10.8) K/ul RBC 3.34 L (4.20-5.40) M/uL Hgb 9.7 L (12.0-16.0) g/dl Hct 29.3 L (37.0-47.0) % RDW Std Deviation 47.7 H (36.4-46.3) fL RDW Coeff of Kim 14.7 H (11.5-14.5) % Sodium 130 L (136-145) mmol/L Carbon Dioxide 19 L (21-32) mmol/L Creatinine 1.38 H (0.6-1.2) mg/dl Glucose 251 H (70-99(Fasting)) mg/dl POC Glucose 155 H 254 H (70-99) mg/dl Calcium 8.4 L (8.6-10.3) mg/dl PG Care Time/CCT Total # of Minutes Spent Total Time Spent with Patient: Total time spent is greater than 50% in coordination of care (as documented) at patient's floor/unit and/or counseling patient: Coding Level of Care Code 97679 SUB INP/OBS CARE 2/35MIN Diagnoses Tachycardia R00.0 Elevated troponin R79.89 Pneumonia J18.9 Emphysema lung J43.9 Diabetes E11.9 HTN (hypertension) I10 HLD (hyperlipidemia) E78.5 MAIA (acute kidney injury) N17.9 Hypomagnesemia E83.42 Apical myocardial infarction I21.29 Stress-induced cardiomyopathy I51.81 Cellulitis of right lower extremity L03.115
--- NOTE | 2023-05-12 13:23 | Cardiology Progress Note ---
Date of Service May 12, 2023 Assessment & Plan (1) Dyspnea: Plan: Etiology of dyspnea at rest today is uncertain, but she does appear mildly hypervolemic and would agree with dose of IV diuretic. Will check repeat chest x-ray to better delineate relative contributions of her underlying COPD, pneumonia, and CHF. No obvious bronchospasm on exam. Fever and leukocytosis resolving, so progressive pneumonia seems unlikely. Remains on antibiotics. (2) Apical myocardial infarction: Plan: Although her constellation of findings (apical wall motion abnormality, no chest pain, acute enzyme elevation) remains most consistent with Takotsubo syndrome/stress cardiomyopathy, absence of any improvement in apical wall motion abnormality makes this diagnosis less certain. No evidence of acute plaque rupture type pathology found in typical myocardial infarction. Coronary artery embolism secondary to atrial dysrhythmia is another possibility, but this seems unlikely given that the rhythm may have been atrial flutter rather than atrial fibrillation and chest pain would be expected in this scenario. Serial echocardiograms as outpatient may help clarify diagnosis, if Takotsubo would expect improvement over time. Regardless of etiology, at this point would recommend continuing aspirin 81 mg daily, apixaban 5 mg twice daily, metoprolol 50 mg daily, and atorvastatin. (3) Stress-induced cardiomyopathy: Plan: With reduced systolic function may consider guideline directed medical therapy after current titration of beta-romero and response to diuretic assessed. Would consider low-dose ARB first, no immediate need for carvedilol or Entresto. (4) Tachycardia: Plan: Initial tachydysrhythmia felt to be either atrial flutter or sinus tachycardia. Continue amiodarone 200 mg daily. Duration of antiarrhythmic treatment will depend upon any evidence of recurrence, if no recurrence may not require long- term antiarrhythmic. (5) LBBB (left bundle branch block): Plan: Chronic. (6) Emphysema lung: Admission and Anticipated Discharge Date Admission Date: May 09, 2023 Subjective She feels more short of breath this morning. No chest pain. Nonproductive cough. Telemetry showed sinus rhythm, no sinus tachycardia, significant ectopy, or dysrhythmias. Physical Exam Physical Exam: No distress. Afebrile past 24 hours. BP low normal. Pulse 69 bpm and regular. Respirations 18 and unlabored. Skin: no ecchymoses or generalized lesions. HEENT: unremarkable. Neck: JVP one third of the way to the angle of the jaw at 90 degrees, no carotid bruits. Lungs: Moderately decreased breath sounds, no obvious wheezing or crackles. No accessory muscle use. Cardiac: regular rhythm, mildly decreased aortic closure sound, 2/6 systolic ejection murmur right upper sternal border radiating faintly to the carotids, no diastolic murmur. Abdomen: benign. Extremities: no edema, pulses intact. Neurologic: normal affect and conversation, nonfocal. Results & Data Vital Signs (Past 12 Hours) Vital Signs Temp Pulse Pulse Resp BP Pulse Ox O2 Del Method 05/12/23 08:00 69 05/12/23 04:00 63 05/12/23 04:00 98.8 F 62 18 109/60 94 Room Air Laboratory Results WBC 11.77, hemoglobin 9.7, normal platelet count. Sodium 130, otherwise normal electrolytes, BUN 19, creatinine 1.38 (1.23 yesterday) Diagnostic Findings Follow-up echocardiogram showed EF 35 to 40% with no change in apical wall motion abnormality. PG Care Time/CCT Total # of Minutes Spent Total Time Spent with Patient: Total time spent is greater than 50% in coordination of care (as documented) at patient's floor/unit and/or counseling patient: Coding Level of Care Code 08765 SUB INP/OBS CARE 3/50MIN Diagnoses Dyspnea R06.00 Apical myocardial infarction I21.29 Stress-induced cardiomyopathy I51.81 Tachycardia R00.0 LBBB (left bundle branch block) I44.7 Emphysema lung J43.9
[2023-05-12] MEDS: cephALEXin 500 MG CAP PO SCH (14:08)
[2023-05-12] MEDS: FUROSEMIDE 40 MG/4 ML VIAL IV ONE (14:09)
--- NOTE | 2023-05-12 14:11 | XRay Report ---
XR chest 1V portable CLINICAL HISTORY: dypnea, CHF vs. pneumonia TECHNIQUE: Single frontal radiograph of the chest was obtained. Comparison: Comparison is made to chest radiograph 05/09/2023 FINDINGS: No lines and tubes are seen. The cardiomediastinal silhouette is normal. The lungs are clear. No evid ence of pleural effusion or pneumothorax. IMPRESSION: No acute abnormalities and in particular no radiographic evidence of pneumonia or significant pulmona ry edema. ACT 112: Negative or not required by law. Electronically signed by: Herrera Arce M.D. 05/12/2023 2:10 PM
[2023-05-13 05:04] LABS: Hematocrit (blood only) 28.3 % (37.0-47.0); Hemoglobin 9.4 g/dl (12.0-16.0); Mean Corpuscular Hemoglobin 28.9 pg (25.0-34.0); Mean Corpuscular Hgb Conc 33.2 g/dL (32.0-36.0); Mean Corpuscular Volume 87.1 fL (80.0-100.0); Mean Platelet Volume 10.8 fL (9.4-12.4); Platelet Count 303 K/uL (130-400); RDW Coefficient of Variation 14.8 % (11.5-14.5); RDW Standard Deviation 47.4 fL (36.4-46.3); Red Blood Count 3.25 M/uL (4.20-5.40); White Blood Count 8.81 K/ul (4.8-10.8)
[2023-05-13 05:25] LABS: BUN Creatinine Ratio 13.1 (10-20); Calcium 8.6 mg/dl (8.6-10.3); Est GFR (African American) 47.5 ml/min; Magnesium 2.1 mg/dl (1.7-2.4); Potassium 3.5 mmol/L (3.5-5.1)
--- NOTE | 2023-05-13 12:27 | Hospitalist Progress Note ---
Date of Service May 13, 2023 Assessment & Plan (1) Stress-induced cardiomyopathy: Plan: Coronaries clean This is stress-induced Takotsubo cardiomyopathy Repeat echo 05/11 did not show improvement in EF Currently on metoprolol succinate Amiodarone to prevent recurrent dysrhythmia Volume status improved with IV Lasix and 05/11. Will not give her any more Lasix today. May consider discharging her tomorrow on p.o. Lasix 40 mg q. other day. (2) Tachycardia: Plan: - Wide complex tachycardia on admission, Was treated with amiodarone drip, now on p.o. amiodarone Most likely due to stress-induced cardiomyopathy Now on amiodarone 200 mg daily Also started on Eliquis due to risk of recurrent atrial dysrhythmia as well as to prevent thrombus formation in the setting of apical akinesis TTE shows apical and anterior wall akinesis with EF of 35 to 40% (3) Elevated troponin: Plan: Coronaries were clean This is most likely stress-induced Takotsubo cardiomyopathy Significant troponin elevation with anteroapical wall motion abnormality on echocardiogram Repeat echo today did not show improvement Started on metoprolol succinate 50 mg daily for Continue aspirin for now (4) Pneumonia: Plan: presented with shortness of breath, hypoxia and was found to have multilobar infiltrates on CT Coronavirus positive, non-COVID Possibly viral pneumonia versus bacterial superimposition Spiked a fever on 05/09 Chest x-ray findings could also be due to fluid overload in the setting of cardiomyopathy and with complaints of dyspnea on exertion Leukocytosis significantly improved, down to normal No more fever spikes Discontinued Zosyn and Zyvox Keflex started for right lower extremity cellulitis Blood cultures so far negative (5) Emphysema lung: (6) Diabetes: Plan: - hold metformin, sitagliptin - continue 18units Lantus daily with SSI - last hemoglobin a1c= 7.7 04/26/23 (7) HTN (hypertension): Plan: - hold lisinopril in the setting of MAIA (8) HLD (hyperlipidemia): Plan: - continue atorvastatin, fenofibrate - updated lipid panel from 04/26/23; LDL=75 (9) MAIA (acute kidney injury): Plan: Creatine= 1.42, baseline= 1 Likely prerenal, resolved with hydration initially Now stable at 1.3 Fluids discontinued In the setting of cardiomyopathy, patient had mild volume overload which was treated with 1 dose of Lasix and 05/11 Patient appears to be euvolemic today No Lasix today Monitor labs (10) Hypomagnesemia: Plan: Replete with IV and p.o. magnesium Could be playing a role in the arrhythmia (11) Apical myocardial infarction: (12) Cellulitis of right lower extremity: Plan: Continue Keflex Improving Plan Plan to discharge tomorrow 05/13 Admission and Anticipated Discharge Date Admission Date: May 09, 2023 Subjective Patient feels well today. She says that she slept well through the night. Her right leg cellulitis and pain improving. Review of Systems Review of Systems: All systems reviewed & are unremarkable except as noted in Subjective Physical Exam Physical Exam: General: Awake, conversant Heart: S1, S2/regular rate and rhythm, no murmur rubs or gallops Lungs: Minimal bibasilar crackles. Normal effort Abdomen: Soft/nontender/nondistended. No hepatosplenomegaly Extremities: No clubbing/cyanosis. Trace bilateral edema. Right lower extremity cellulitis improving Behavior: Appropriate, cooperative Results & Data Results & Data Vital Signs (Past 12 Hours) Vital Signs Temp Pulse Pulse Resp BP BP Pulse Ox 05/13/23 10:00 63 19 05/13/23 10:00 124/77 05/13/23 08:00 79 21 05/13/23 08:00 123/91 05/13/23 08:00 71 05/13/23 07:22 140/79 05/13/23 07:22 74 23 05/13/23 07:00 72 21 05/13/23 03:12 37.1 C 82 18 125/85 92 O2 Del Method 05/13/23 10:00 05/13/23 10:00 05/13/23 08:00 05/13/23 08:00 05/13/23 08:00 05/13/23 07:22 05/13/23 07:22 05/13/23 07:00 05/13/23 03:12 Room Air Laboratory Results Abnormal lab results 05/12/23 05/12/23 05/13/23 Range/Units 16:13 20:10 04:05 RBC 3.25 L (4.20-5.40) M/uL Hgb 9.4 L (12.0-16.0) g/dl Hct 28.3 L (37.0-47.0) % RDW Std Deviation 47.4 H (36.4-46.3) fL RDW Coeff of Kim 14.8 H (11.5-14.5) % Creatinine 1.30 H (0.6-1.2) mg/dl Glucose 108 H (70-99(Fasting)) mg/dl POC Glucose 211 H 195 H (70-99) mg/dl 05/13/23 05/13/23 Range/Units 07:19 11:29 RBC (4.20-5.40) M/uL Hgb (12.0-16.0) g/dl Hct (37.0-47.0) % RDW Std Deviation (36.4-46.3) fL RDW Coeff of Kim (11.5-14.5) % Creatinine (0.6-1.2) mg/dl Glucose (70-99(Fasting)) mg/dl POC Glucose 137 H 104 H (70-99) mg/dl PG Care Time/CCT Total # of Minutes Spent Total Time Spent with Patient: Total time spent is greater than 50% in coordination of care (as documented) at patient's floor/unit and/or counseling patient: Coding Level of Care Code 72049 SUB INP/OBS CARE 2/35MIN Diagnoses Stress-induced cardiomyopathy I51.81 Tachycardia R00.0 Elevated troponin R79.89 Pneumonia J18.9 Emphysema lung J43.9 Diabetes E11.9 HTN (hypertension) I10 HLD (hyperlipidemia) E78.5 MAIA (acute kidney injury) N17.9 Hypomagnesemia E83.42 Apical myocardial infarction I21.29 Cellulitis of right lower extremity L03.115
--- NOTE | 2023-05-13 13:36 | Cardiology Progress Note ---
Date of Service May 13, 2023 Assessment & Plan (1) Dyspnea: Plan: Subjective improvement with diuresis suggest component of volume overload. She appears euvolemic today and is comfortable. She was not on diuretics prior to admission, postinfarct obviously changes status, but diuretic requirement uncertain. Therefore, recommend furosemide 40 mg every other day upon discharge (she can monitor subjective dyspnea/fatigue during diuretic on/off days). Discussed low-sodium diet. (2) Apical myocardial infarction: Plan: Absence of early improvement in apical akinesis weighs against Takotsubo syndrome, but I have had patients where it can take several weeks for LV wall motion abnormalities to resolve. Would certainly continue beta-romero given strong possibility she has Takotsubo/stress-induced cardiomyopathy, current dose of metoprolol succinate 50 mg daily seems appropriate. She does have minor coronary artery disease, therefore continue atorvastatin. Would continue aspirin near-term, long-term use will depend on whether she remains on apixaban. Would also continue anticoagulation with apixaban near-term, if she does not demonstrate recurrent dysrhythmia she may not require long-term anticoagulation. (3) Stress-induced cardiomyopathy: Plan: Would resume lisinopril 5 mg daily, which she was on prior to admission (BETSY inhibitor for cardiomyopathy) (4) Tachycardia: Plan: Initial tachydysrhythmia felt to be either atrial flutter or sinus tachycardia. Continue amiodarone 200 mg daily. Duration of antiarrhythmic treatment will depend upon any evidence of recurrence, if no recurrence may not require long- term antiarrhythmic. (5) LBBB (left bundle branch block): Plan: Chronic. (6) Emphysema lung: Plan Cardiology follow-up with me in 2 to 4 weeks, I will arrange follow-up through our office. Admission and Anticipated Discharge Date Admission Date: May 09, 2023 Subjective She feels much better today, no dyspnea, good appetite, slept well. Input/output not accurate, patient notes subjective diuresis after dose of IV furosemide yesterday. Telemetry showed sinus rhythm, no dysrhythmias or sinus tachycardia. Physical Exam Physical Exam: No distress. Afebrile. BP normotensive. Pulse 63 bpm and regular. Respirations 19 and unlabored. Skin: no ecchymoses or generalized lesions. HEENT: unremarkable. Neck: JVP at the clavicle at 90 degrees, no carotid bruits. Lungs: Moderately decreased breath sounds, no obvious wheezing or crackles. No accessory muscle use. Cardiac: regular rhythm, mildly decreased aortic closure sound, 2/6 systolic ejection murmur right upper sternal border radiating faintly to the carotids, no diastolic murmur. Abdomen: benign. Extremities: no edema, pulses intact. Neurologic: normal affect and conversation, nonfocal. Results & Data Laboratory Results Normal electrolytes, BUN 17, creatinine 1.3 Diagnostic Findings Chest x-ray yesterday afternoon was benign PG Care Time/CCT Total # of Minutes Spent Total Time Spent with Patient: Total time spent is greater than 50% in coordination of care (as documented) at patient's floor/unit and/or counseling patient: Coding Level of Care Code 58303 SUB INP/OBS CARE 3/50MIN Diagnoses Dyspnea R06.00 Apical myocardial infarction I21.29 Stress-induced cardiomyopathy I51.81 Tachycardia R00.0 LBBB (left bundle branch block) I44.7 Emphysema lung J43.9
[2023-05-14 04:40] LABS: Hematocrit (blood only) 27.9 % (37.0-47.0); Hemoglobin 9.2 g/dl (12.0-16.0); Mean Corpuscular Hemoglobin 28.8 pg (25.0-34.0); Mean Corpuscular Volume 87.5 fL (80.0-100.0); Mean Platelet Volume 10.7 fL (9.4-12.4); Platelet Count 307 K/uL (130-400); RDW Coefficient of Variation 14.7 % (11.5-14.5); RDW Standard Deviation 47.6 fL (36.4-46.3); Red Blood Count 3.19 M/uL (4.20-5.40); White Blood Count 8.07 K/ul (4.8-10.8)
[2023-05-14 04:54] LABS: BUN Creatinine Ratio 14.2 (10-20); Calcium 8.4 mg/dl (8.6-10.3); Creatinine Clr Calc Pharmacy 47.9 ml/min; Est GFR (African American) 60.8 ml/min; Est GFR (Non-African American) 52.4 ml/min; Magnesium 2.1 mg/dl (1.7-2.4); Potassium 3.7 mmol/L (3.5-5.1)
--- NOTE | 2023-05-14 10:38 | Discharge Summary ---
Date of Service May 14, 2023 Admission HPI Per Admitting Provider 73 year old female with a past medical history of DM2, HTN, HLD, Anemia, prior tobacco use, osteopenia, emphysema presenting with acute onset wide complex tachycardia. Sudden onset dyspnea at about 1700 while she was gardening, felt short of breath and felt like she was wheezing. Prior to this evening she states that she in her normal health. Denies recent illness. EMS was called and was found to be hypoxic to the 80s and with a wide complex tachycardia. Was given 324mg asp and nitro. Upon arrival to ED EKG with Wide Complex Tachycardia and was bolused with amiodarone and then started on amiodarone drip. Magnesium was found to be low and repleted. Had CTA without pulmonary embolism, with opacities concerning for pneumonia- was given a dose of ceftriaxone and doxycycline. Upon my elevation she said she was feeling much better. Decreased dyspnea. Denies any active chest pain, headache, nausea, vomiting. 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 Normal effort Abdomen: Soft/nontender/nondistended. No hepatosplenomegaly Extremities: No clubbing/cyanosis. No bilateral edema. Right lower extremity cellulitis improving Behavior: Appropriate, cooperative Discharge Data Allergies Allergy/AdvReac Type Severity Reaction Status Date / Time canagliflozin [From Invokana] AdvReac Intermediate Yeast Verified 05/09/23 19:59 Infection dapagliflozin [From Farxiga] AdvReac Intermediate Yeast Verified 05/09/23 19:59 Infection dulaglutide [From Trulicity] AdvReac nausea and Verified 05/09/23 19:59 vomiting Consultations 05/09/23 22:46 ED Decision to Admit Stat 05/10/23 05:00 Consult Cardiology Routine 05/14/23 08:13 [facility] CHF Program Referral Routine Procedures Performed Operation Date: 05/11/23 09:00 Actual Procedures s Cineradiography w/Routine Exam - Javed Cruz MD, PhD p Cath, Coronaries ONLY (no LV) - Javed Cruz MD, PhD Ordered Studies 05/09/23 20:21 CT for pulmonary embolism PE [CT angio chest PE protocol] Stat 05/11/23 07:40 CL Cath Imgs for PACS use only Routine Hospital Course (1) Stress-induced cardiomyopathy: Coronaries clean This is stress-induced Takotsubo cardiomyopathy Repeat echo 05/11 did not show improvement in EF Currently on metoprolol succinate Amiodarone to prevent recurrent dysrhythmia Volume status improved with IV Lasix on 05/11. Will not give her any more Lasix today. Will discharge her on p.o. Lasix 40 mg q. other day. (2) Tachycardia: - Wide complex tachycardia? on admission, Was treated with amiodarone drip, now on p.o. amiodarone Most likely due to stress-induced cardiomyopathy Now on amiodarone 200 mg daily Also started on Eliquis due to risk of recurrent atrial dysrhythmia as well as to prevent thrombus formation in the setting of apical akinesis TTE shows apical and anterior wall akinesis with EF of 35 to 40% (3) Pneumonia: presented with shortness of breath, hypoxia and was found to have multilobar infiltrates on CT Coronavirus positive, non-COVID Possibly viral pneumonia versus bacterial superimposition Spiked a fever on 05/09 Chest x-ray findings could also be due to fluid overload in the setting of cardiomyopathy and with complaints of dyspnea on exertion Leukocytosis significantly improved, down to normal No more fever spikes Discontinued Zosyn and Zyvox Keflex started for right lower extremity cellulitis Blood cultures so far negative (4) Emphysema lung: (5) Diabetes: - hold metformin, sitagliptin - continue 18units Lantus daily with SSI - last hemoglobin a1c= 7.7 04/26/23 (6) HTN (hypertension): - Resume lisinopril upon discharge (7) HLD (hyperlipidemia): - continue atorvastatin, fenofibrate - updated lipid panel from 04/26/23; LDL=75 (8) MAIA (acute kidney injury): Creatine= 1.42, baseline= 1 Likely prerenal, resolved with hydration initially Now stable Fluids discontinued In the setting of cardiomyopathy, patient had mild volume overload which was treated with 1 dose of Lasix and / Patient appears to be euvolemic today No Lasix today Monitor labs Dc on Lasix 40mg PO q other day (9) Hypomagnesemia: Replete with IV and p.o. 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 Cardiology office will call with an appointment. Advised to note that you are being discharged on a few new medications Pending Studies at Discharge: No Stand-Alone Forms: My [facility] Medications and DC Order Prescriptions: New cephalexin 500 mg Capsule 500 mg PO BID 5 Days Qty: 10 0RF Eliquis 5 mg Tablet 5 mg PO BID 30 Days Qty: 60 0RF amiodarone 200 mg Tablet 200 mg PO DAILY 30 Days Qty: 30 0RF metoprolol succinate 50 mg Tablet Extended Release 24 Hr 50 mg PO QAM 30 Days Qty: 30 0RF magnesium oxide 400 mg (241.3 mg magnesium) Tablet 400 mg PO QAM Qty: 30 0RF furosemide [Lasix] 40 mg tablet 40 mg PO Q OTHER DAY 30 Days Qty: 15 0RF Continued lisinopril 5 mg tablet 5 mg PO DAILY Qty: 90 1RF sitagliptin phosphate 100 mg tablet 100 mg PO DAILY Qty: 90 3RF Hold Instructions: Started on Trulicity 06/11/20 (DME) pen needle, diabetic 31 gauge x 1/4" needle See Rx Instructions .ROUTE .MEDSUPPLY Qty: 100 1RF Rx Instructions: As directed ketoconazole 2 % cream 1 applic topical BID Qty: 30 5RF fluticasone propionate 50 mcg/actuation spray,suspension 2 spray intranasal DAILY Qty: 16 5RF Rx Instructions: administer into each nostril metformin 500 mg tablet extended release 24 hr 1,000 mg PO BID Qty: 360 1RF Rx Instructions: REGULAR NOT OSM OR MOD loratadine [Allergy Relief (loratadine)] 10 mg tablet 10 mg PO DAILY Qty: 90 1RF ferrous sulfate 325 mg (65 mg iron) tablet 325 mg PO TID 90 Days Qty: 270 1RF fenofibrate 54 mg tablet 54 mg PO DAILY Qty: 90 1RF atorvastatin 20 mg tablet 20 mg PO QPM Qty: 90 1RF Calcium 600 + D(3) 600 mg-5 mcg (200 unit) capsule 1 cap PO DAILY cholecalciferol (vitamin D3) 125 mcg (5,000 unit) capsule 125 mcg PO DAILY folic acid 20 mg capsule 80 mg PO DAILY cinnamon bark 500 mg capsule 500 mg PO DAILY red beet root-sour mcgarry ext 250-0.5 mg tablet,chewable 1 tab PO DAILY insulin glargine [Basaglar KwikPen U-100 Insulin] 100 unit/mL (3 mL) insulin pen 18 unit subcut QPM Qty: 15 1RF (DME) blood-glucose meter [Blood Glucose Monitoring] Kit See Rx Instructions .ROUTE .MEDSUPPLY Qty: 1 0RF Rx Instructions: As directed aspirin [Adult Low Dose Aspirin] 81 mg tablet,delayed release (DR/EC) 81 mg PO DAILY Qty: 30 2RF Discharge Orders: Discharge Order- CHF (Routine); Ordered 05/14/23 Ordered By: Zenon Su Admission Data Admit Date/Time: 05/09/23 22:42 Attending Provider: Zenon Su Admit Provider: Kesha Nelson Primary Care Provider: Harshal Ruelas Other Providers: Cole Hooper,Juarez F.; Kristi Dickey Coding Level of Care Code 61576 INP/OBS DISCH >30 MIN Diagnoses Stress-induced cardiomyopathy I51.81 Tachycardia R00.0 Pneumonia J18.9 Emphysema lung J43.9 Diabetes E11.9 HTN (hypertension) I10 HLD (hyperlipidemia) E78.5 MAIA (acute kidney injury) N17.9 Hypomagnesemia E83.42 Cellulitis of right lower extremity L03.115
--- NOTE | 2023-05-14 11:29 | Cardiology Progress Note ---
Date of Service May 14, 2023 Assessment & Plan (1) Dyspnea: Plan: She appears euvolemic today and is comfortable. As noted, recommend discharge on furosemide 40 mg every other day. Discussed low-sodium diet and recommended obtaining daily weight. (2) Apical myocardial infarction: Plan: Takotsubo/stress-induced cardiomyopathy still seems most likely, continue beta- romero (metoprolol). Until follow-up echo shows evidence of resolving wall motion abnormality would treat for underlying coronary disease as well by continuing aspirin and statin. (3) Stress-induced cardiomyopathy: Plan: Will resume lisinopril 5 mg daily as outpatient for her reduced LV function. (4) Tachycardia: Plan: Initial tachydysrhythmia felt to be either atrial flutter or sinus tachycardia. Continue amiodarone 200 mg daily. Duration of antiarrhythmic treatment will depend upon any evidence of recurrence, if no recurrence may not require long- term antiarrhythmic. (5) LBBB (left bundle branch block): Plan: Chronic. (6) Emphysema lung: Plan I have arranged for cardiology follow-up with me in 2-4 weeks. Admission and Anticipated Discharge Date Admission Date: May 09, 2023 Subjective Uneventful night. She feels well and is anxious to return home. No chest pain or dyspnea. Telemetry showed sinus rhythm with no dysrhythmias. Physical Exam Physical Exam: No distress. Afebrile. BP mildly hypertensive. Pulse 81 bpm and regular. Respiration 20 but unlabored. Skin: no ecchymoses or generalized lesions. HEENT: unremarkable. Neck: JVP at the clavicle at 90 degrees, no carotid bruits. Lungs: Moderately decreased breath sounds, few crackles left base but otherwise clear. No wheezing or accessory muscle use. Cardiac: regular rhythm, mildly decreased aortic closure sound, 2/6 systolic ejection murmur right upper sternal border radiating faintly to the carotids, no diastolic murmur. Abdomen: benign. Extremities: no edema, pulses intact. Neurologic: normal affect and conversation, nonfocal. Results & Data Vital Signs (Past 12 Hours) Vital Signs Pulse Resp BP Pulse Ox 05/14/23 10:04 81 28 H 95 05/14/23 10:04 158/80 H 05/14/23 08:00 147/75 H 05/14/23 08:00 79 21 03/09/24 07:00 89 19 05/14/23 00:00 67 Laboratory Results Normal electrolytes, BUN 15, creatinine 1.06 (down from 1.3 yesterday). PG Care Time/CCT Total # of Minutes Spent Total Time Spent with Patient: Total time spent is greater than 50% in coordination of care (as documented) at patient's floor/unit and/or counseling patient: Coding Level of Care Code 70997 SUB INP/OBS CARE 3/50MIN Diagnoses Dyspnea R06.00 Apical myocardial infarction I21.29 Stress-induced cardiomyopathy I51.81 Tachycardia R00.0 LBBB (left bundle branch block) I44.7 Emphysema lung J43.9
== END 2023-05-14 12:35 | disposition home or self-care (01) | DRG 177 ==
LOC: ED 19:28 → 1E 22:42 → SUATTDRO 22:42 → 1E 05-10 01:24
PROC: CLB.CCO (2023-05-11 09:00)

== ENCOUNTER 2023-07-07 18:39 | Inpatient (IN) ==
[2023-07-07 19:32] LABS: Basophils # (auto) 0.07 K/uL (0.00-0.20); Eosinophils # (auto) 0.22 K/uL (0.00-0.50); Eosinophils % (auto) 3.3 %; Hematocrit (blood only) 33.3 % (37.0-47.0); Hemoglobin 10.8 g/dl (12.0-16.0); Immature Granulocytes # (auto) 0.02 K/uL (0.01-0.20); Immature Granulocytes % (auto) 0.3 %; Lymphocytes # (auto) 2.22 K/uL (1.20-3.40); Lymphocytes % (auto) 33.3 %; Mean Corpuscular Hemoglobin 28.3 pg (25.0-34.0); Mean Corpuscular Hgb Conc 32.4 g/dL (32.0-36.0); Mean Corpuscular Volume 87.4 fL (80.0-100.0); Mean Platelet Volume 10.8 fL (9.4-12.4); Neutrophils # (auto) 3.54 K/uL (1.40-6.50); Neutrophils % (auto) 53.1 %; Platelet Count 357 K/uL (130-400); RDW Coefficient of Variation 15.1 % (11.5-14.5); RDW Standard Deviation 48.3 fL (36.4-46.3); Red Blood Count 3.81 M/uL (4.20-5.40); White Blood Count 6.67 K/ul (4.8-10.8)
[2023-07-07] MEDS: ONDANSETRON INJ 2 MG/ML 2 ML VIAL IV STA (19:42)
[2023-07-07] MEDS: SODIUM CHLORIDE 0.9% 1,000 ML IV ONE (19:42)
--- NOTE | 2023-07-07 19:42 | Emergency Department Note ---
Impression & Plan MAIA (acute kidney injury), Diarrhea, Acute UTI ED Provider Note Provider: German Biggs MD DATE OF SERVICE: 07/07/2023 CHIEF COMPLAINT: Nausea vomiting diarrhea, abnormal blood work HISTORY OF PRESENT ILLNESS: Patient is a 73-year-old female history of cardiomyopathy, diabetes, hypertension presenting here referred from outpatient setting due to abnormal blood work. Patient is hospitalized here several months ago with stress-induced cardiomyopathy. Did have cellulitis at that time 2. Had some antibiotics. States he is had diarrhea since then somewhat green in nature at times. Patient denies syncope but states feels thirsty and just is vomiting frequently and having lots of diarrhea. Bit of cramping in the abdomen at times. Denies any significant breathing issues or chest pain here. Saw her PCP and had blood work today showing kidney abnormality as well as potassium issues and came here for evaluation. Endorses burning with urination currently. Denies any genital rash. PAST MEDICAL HISTORY: As noted above MEDICATIONS: Reviewed home medications SOCIAL HISTORY: PHYSICAL EXAM: GENERAL: alert and oriented in no acute distress on stretcher Head: normocephalic and atraumatic EYES: No injection, discharge or icterus. NECK: Trachea midline. Supple. ENT: Mucous membranes pink and moist. LUNGS: Airway patent. No retractions or tachypnea HEART: Regular rate and rhythm. No chest wall tenderness ABDOMEN: Soft minimal mid to upper abdominal tenderness. No guarding. Nonperitoneal. SKIN: Acyanotic, warm, dry, without rashes EXTREMITIES: Without swelling, tenderness or deformity NEUROLOGICAL: No focal deficits. No aphasia. No facial droop or slurred speech. Ambulatory. EK bpm normal sinus rhythm LVH and left bundle branch block noted with nonspecific T wave inversions. QTc 452. EK bpm sinus tachycardia with LVH changes bundle branch block with a QTc of 472. Specific T wave inversions noted. CONTINUOUS CARDIAC MONITORING: was ordered and showed a heart rate of 80s-100s bpm in normal sinus rhythm to sinus tachycardia Patient's laboratory studies and imaging reviewed. Differential includes Infection, gastroenteritis, C. difficile, dehydration, metabolic abnormality, hypo/hyperglycemia, electrolyte disturbance, anemia, hypoxia, cardiac sources, intracerebral event, toxicologic, neurologic, as well as other pathologies. IMPRESSION/MEDICAL DECISION MAKING: Repeat labs to double check MAIA and hyperkalemia were completed. CT scan to exclude obstructive renal dysfunction completed without contrast. Benign abdomen doubt acute perforation. Blood counts are reassuring. Does report fairly continuous and significant nausea vomiting and diarrhea. Green in color time. Will send stool to see if samples pending collection. Unfortunately urine does appear infected and reports significant dysuria. Will treat with a single dose ceftriaxone at this time pending culture. Does not appear septic. Will give some IV fluid hydration given her findings concerning for dehydration. Confirmed patient potassium a little bit lower. Will hold off on significant hyperkalemia medications but will try to include a bit with IV fluids. Liter and a half of IV fluids given and does experience a bit of chest discomfort a bit of shortness of breath likely unfortunately little too fast and aggressive with IV fluids. Not hypoxic however and I doubt this represents allergic reaction. Repeat EKG and troponin was completed. Maybe a little bit of change in T wave inversion. Review troponin slightly different. Will continue to monitor and hospitalist team aware. Received a dose ceftriaxone for probable UTI. Stool studies pending sample collection and do question again if she may have infectious diarrhea such as C. difficile. Contacted hospitalist team for admission. CT abdomen pelvis per radiology without significant acute abnormality or particular findings of obstructive uropathy. DIAGNOSIS: MAIA, hyperkalemia, acute UTI DISPOSITION: Hospitalist will evaluate Patient was agreeable with this plan. Past Med/Surg History Medical History Positive colorectal cancer screening using Cologuard test Emphysema lung Vitamin B 12 deficiency Pulmonary nodule Osteopenia after menopause Anemia Tobacco dependence History of bleeding disorder HLD (hyperlipidemia) HTN (hypertension) Diabetes Surgical History No pertinent past surgical history Family History Mother Diabetes Hypertension Father Diabetes Hypertension Sister Diabetes Hypertension Breast cancer, Onset Age: 38 Brother Diabetes Hypertension Denies family history of Ovarian cancer Prostate cancer Myocardial infarction Colorectal cancer Social History Smoking Status: Former smoker Tobacco Type: Cigarettes Age Quit Using Tobacco: 70; packs per day: 0.5; Second Hand Exposure: Yes; Do You Dip or Chew Tobacco: No; Hx Alcohol Use: No Hx Substance Use: No Preferred Language: Amharic Communication Ability: Effective Visual Impairment: No Limitations Hearing Ability: Normal Photographer Finish Required: No Beliefs That Will Affect Care: None marital status: Current Living Situation: Spouse current occupational status: retired current occupation: housewife or homemaker How many Children do You have: 3 How many Children do You have Comment: able to assist with care. Children are also local and able to assist if needed. Feels Safe at Home: Yes Childhood Exposure to Second-Hand Smoke: No Diet: regular Diet Comment: regular caffeine: Yes during the past year weight has: remained stable Dental Care, Regularly: Yes Physical Activity Frequency: Daily Seatbelt Use: always Sunscreen Use: Yes Assistive Devices: None Allergies Allergies Allergy/AdvReac Type Severity Reaction Status Date / Time canagliflozin [From Invokana] AdvReac Intermediate Yeast Verified 07/07/23 21:08 Infection dapagliflozin [From Farxiga] AdvReac Intermediate Yeast Verified 07/07/23 21:08 Infection dulaglutide [From Trulicity] AdvReac Intermediate nausea and Verified 07/07/23 21:08 vomiting Home Meds Home Medications Medication Instructions Recorded Confirmed calcium carbonate 600 mg-vitamin 1 cap PO DAILY 04/26/23 07/07/23 D3 5 mcg (200 unit) capsule (Calcium 600 + D(3)) cholecalciferol (vitamin D3) 125 125 mcg PO DAILY 04/26/23 07/07/23 mcg (5,000 unit) capsule folic acid 20 mg capsule 80 mg PO DAILY 05/17/23 07/07/23 lisinopril 10 mg tablet 5 mg PO DAILY 05/17/23 07/07/23 Previous Rx's Medication Instructions Recorded blood-glucose meter (Blood Glucose #1 ea 04/22/22 Monitoring kit) sitagliptin phosphate 100 mg tablet 100 mg PO DAILY #90 tabs 11/17/22 fluticasone propionate 50 2 spray intranasal DAILY #16 grams 03/08/23 mcg/actuation nasal spray,suspension metformin 500 mg tablet,extended 1,000 mg (2 x 500 mg) PO BID #360 03/17/23 release 24 hr tabs loratadine 10 mg tablet (Allergy 10 mg PO DAILY #90 tabs 03/22/23 Relief (loratadine)) ferrous sulfate 325 mg (65 mg 325 mg PO TID 90 days #270 tabs 04/08/23 iron) tablet atorvastatin 20 mg tablet 20 mg PO QPM #90 tabs 05/10/23 fenofibrate 54 mg tablet 54 mg PO DAILY #90 tabs 05/10/23 amiodarone 200 mg tablet 200 mg PO Q2D 1 month #45 tabs 06/01/23 apixaban 5 mg tablet (Eliquis) 5 mg PO BID #180 tabs 06/01/23 magnesium oxide 400 mg (241.3 mg 400 mg PO QAM #90 tabs 06/01/23 magnesium) tablet metoprolol succinate 50 mg 50 mg PO QAM #90 tabs 06/01/23 tablet,extended release 24 hr pen needle, diabetic 31 gauge x #100 ea 06/13/2303/10" insulin glargine 100 unit/mL (3 18 unit (0.18 mL) subcut QPM #18 mL 06/29/23 mL) subcutaneous pen (Basaglar KwikPen U-100 Insulin) Results & Data (ED) Vital Signs Vital Signs - 24 hr 07/07/23 18:44 07/07/23 19:21 07/07/23 19:51 Temperature 36.8 C Temperature Source Temporal Artery Scan Pulse Rate 107 H 81 Pulse Rate [Apical] 89 Pulse Strength Normal Respiratory Rate 20 18 Respiratory Effort / Characteristics Non-Labored Spontaneous Non-Labored Respiratory Depth Normal Normal Respiratory Pattern Regular Blood Pressure 144/99 H Blood Pressure [Right Arm] 142/78 H Blood Pressure Mean 114 Blood Pressure Mean [Right Arm] 99 Pulse Oximetry 97 96 Oxygen Delivery Method Room Air Sepsis Recent Fever Within 48 Hours No Sepsis New/Unexplained Change in Mental Status No Sepsis Action Taken by Nursing No Action Required 07/07/23 19:51 07/07/23 22:00 Temperature Temperature Source Pulse Rate Pulse Rate [Apical] 77 Pulse Strength Respiratory Rate 20 Respiratory Effort / Characteristics Respiratory Depth Respiratory Pattern Blood Pressure Blood Pressure [Right Arm] 156/71 H Blood Pressure Mean Blood Pressure Mean [Right Arm] 99 Pulse Oximetry 94 97 Oxygen Delivery Method Room Air Sepsis Recent Fever Within 48 Hours Sepsis New/Unexplained Change in Mental Status Sepsis Action Taken by Nursing Laboratory Data 07/07/23 19:03 07/07/23 19:03 Lab Results 07/07/23 07/07/23 Range/Units 19:03 21:27 WBC 6.67 (4.8-10.8) K/ul RBC 3.81 L (4.20-5.40) M/uL Hgb 10.8 L (12.0-16.0) g/dl Hct 33.3 L (37.0-47.0) % MCV 87.4 (80.0-100.0) fL MCH 28.3 (25.0-34.0) pg MCHC 32.4 (32.0-36.0) g/dL RDW Std Deviation 48.3 H (36.4-46.3) fL RDW Coeff of Kim 15.1 H (11.5-14.5) % Plt Count 357 (130-400) K/uL MPV 10.8 (9.4-12.4) fL Immature Gran % (Auto) 0.3 % Neut % (Auto) 53.1 % Lymph % (Auto) 33.3 % Rock % (Auto) 9.0 % Eos % (Auto) 3.3 % Baso % (Auto) 1.0 % Neut # (Auto) 3.54 (1.40-6.50) K/uL Lymph # (Auto) 2.22 (1.20-3.40) K/uL Rock # (Auto) 0.60 H (0.11-0.59) K/uL Eos # (Auto) 0.22 (0.00-0.50) K/uL Baso # (Auto) 0.07 (0.00-0.20) K/uL Immature Gran # (Auto) 0.02 (0.01-0.20) K/uL PT 11.4 (9.0-12.0) Seconds INR 1.1 (0.9-1.1) APTT 26 (21-31) Seconds PTT Ratio 1.0 Sodium 136 (136-145) mmol/L Potassium 5.4 H (3.5-5.1) mmol/L Chloride 107 (98-107) mmol/L Carbon Dioxide 20 L (21-32) mmol/L Anion Gap 9 (3-11) BUN 42 H (6-23) mg/dl Creatinine 1.97 H (0.6-1.2) mg/dl Est Cr Clr Drug Dosing 23.9 ml/min Est GFR ( Amer) 28.7 ml/min Est GFR (Non-Af Amer) 24.8 ml/min BUN/Creatinine Ratio 21.3 H (10-20) Glucose 191 H (70-99(Fasting)) mg/dl Calcium 9.5 (8.6-10.3) mg/dl Total Bilirubin 0.3 (0.2-1.0) mg/dl AST 24 (13-39) U/L ALT 13 (7-52) U/L Alkaline Phosphatase 52 (34-104) U/L Troponin I High Sens 46.9 H 59.1 H* D (0-14) pg/ml Total Protein 7.9 (6.0-8.3) gm/dl Albumin 4.0 (3.4-5.0) gm/dl Globulin 3.9 (2.5-4.0) gm/dl Albumin/Globulin Ratio 1.0 (0.9-2) Administered Medications Discontinued Medications Sodium Chloride (Nss) 1,000 mls @ 999 mls/hr IV .Q1H1M ONE Stop: 07/07/23 20:37 Last Infusion: 07/07/23 20:49 Dose: Infused Documented By: Admin: 07/07/23 19:42 Dose: 999 mls/hr Documented By: HETAL Sodium Chloride (Nss) 500 mls @ 999 mls/hr IV .Q31M ONE Stop: 07/07/23 20:13 Last Infusion: 07/07/23 21:27 Dose: Infused Documented By: Admin: 07/07/23 20:49 Dose: 999 mls/hr Documented By: HETAL Ceftriaxone Sodium (Rocephin) 2,000 mg in 50 mls @ 100 mls/hr IV NOW STA Stop: 07/07/23 20:12 Last Infusion: 07/07/23 20:49 Dose: Infused Documented By: Admin: 07/07/23 20:10 Dose: 100 mls/hr Documented By: RAIN Ondansetron HCl (Ondansetron Inj 2 Mg/Ml 2 Ml Vial) 4 mg IV NOW STA Stop: 07/07/23 19:38 Last Admin: 07/07/23 19:42 Dose: 4 mg Documented By: HETAL Imaging Data Radiologist's Impression: Abdomen/Pelvis CT 07/07/23 19:03 Exam(s): CT ABDOMEN + PELVIS Without Contrast EXAM: CT Abdomen and Pelvis Without Intravenous Contrast CLINICAL HISTORY: Reason for exam: maia, diarrhea. TECHNIQUE: Axial computed tomography images of the abdomen and pelvis without intravenous contrast. CTDI is 25.22 mGy and DLP is 1099.24 mGy-cm. Automated exposure control was utilized for the study. A dose lowering technique was utilized adhering to the principles of ALARA. COMPARISON: No relevant prior studies available. FINDINGS: Lung bases: Unremarkable. No mass. No consolidation. ABDOMEN: Liver: Unremarkable. Gallbladder and bile ducts: Unremarkable. No calcified stones. No ductal dilation. Pancreas: Unremarkable. No ductal dilation. Spleen: Unremarkable. No splenomegaly. Adrenals: Unremarkable. No mass. Kidneys and ureters: No hydronephrosis. There are 2 nonobstructing right renal calcifications, each measuring 3 mm. Stomach and bowel: Distal colonic diverticula without diverticulitis. No bowel obstruction. PELVIS: Appendix: Normal appendix. Bladder: Decompressed urinary bladder, limiting evaluation. No stones. Reproductive: Unremarkable as visualized. Normal uterus. ABDOMEN and PELVIS: Intraperitoneal space: Unremarkable. No free air. No significant fluid collection. Bones/joints: Facet degeneration in the lumbar spine with grade 1 anterolisthesis of L5. No acute fracture or dislocation. Soft tissues: Unremarkable. Vasculature: Atherosclerosis. No aortic aneurysm. Lymph nodes: Unremarkable. No enlarged lymph nodes. IMPRESSION: 1. No acute findings. 2. Nonobstructing calcifications in the right kidney, stones versus vascular calcifications. Electronically signed by: Felix Ortega M.D. 07/07/23 20:28 PM Discharge Plan Visit Data Chief Complaint: Abnormal Labs/Diagnostic Testing Stated Complaint: POTASSIUM HIGH ED Provider: German Biggs Discharge Problem: MAIA (acute kidney injury), Diarrhea, Acute UTI Patient Disposition: Being Evaluated by Hospitalist Forms Stand Alone Forms: My [facility] [employer] Prescriptions Prescriptions: No Action sitagliptin phosphate 100 mg tablet 100 mg PO DAILY Qty: 90 3RF Hold Instructions: Started on Trulicity 06/11/20 fluticasone propionate 50 mcg/actuation spray,suspension 2 spray intranasal DAILY Qty: 16 5RF Rx Instructions: administer into each nostril metformin 500 mg tablet extended release 24 hr 1,000 mg PO BID Qty: 360 1RF Rx Instructions: REGULAR NOT OSM OR MOD loratadine [Allergy Relief (loratadine)] 10 mg tablet 10 mg PO DAILY Qty: 90 1RF ferrous sulfate 325 mg (65 mg iron) tablet 325 mg PO TID 90 Days Qty: 270 1RF Hold Instructions: N/V fenofibrate 54 mg tablet 54 mg PO DAILY Qty: 90 1RF atorvastatin 20 mg tablet 20 mg PO QPM Qty: 90 1RF (DME) pen needle, diabetic 31 gauge x 1/4" needle See Rx Instructions .ROUTE .MEDSUPPLY Qty: 100 1RF Rx Instructions: As directed insulin glargine [Basaglar KwikPen U-100 Insulin] 100 unit/mL (3 mL) insulin pen 18 unit subcut QPM Qty: 18 4RF Calcium 600 + D(3) 600 mg-5 mcg (200 unit) capsule 1 cap PO DAILY cholecalciferol (vitamin D3) 125 mcg (5,000 unit) capsule 125 mcg PO DAILY (DME) blood-glucose meter [Blood Glucose Monitoring] Kit See Rx Instructions .ROUTE .MEDSUPPLY Qty: 1 0RF Rx Instructions: As directed amiodarone 200 mg tablet 200 mg PO Q2D 30 Days Qty: 45 1RF Eliquis 5 mg tablet 5 mg PO BID Qty: 180 1RF metoprolol succinate 50 mg tablet extended release 24 hr 50 mg PO QAM Qty: 90 3RF magnesium oxide 400 mg (241.3 mg magnesium) tablet 400 mg PO QAM Qty: 90 3RF folic acid 20 mg capsule 80 mg PO DAILY Rx Instructions: Pt states she dont take on a regular dose schedule. lisinopril 10 mg tablet 5 mg PO DAILY Rx Instructions: take 1/2 tab daily. Referrals Referrals: Harshal Ruelas CRNP [Primary Care Provider] -
[2023-07-07 19:46] LABS: INR 1.1 (0.9-1.1); Partial Thromboplastin Time 26 Seconds (21-31); Prothrombin Time 11.4 Seconds (9.0-12.0)
[2023-07-07 19:52] LABS: BUN Creatinine Ratio 21.3 (10-20); Bilirubin,Total 0.3 mg/dl (0.2-1.0); Calcium 9.5 mg/dl (8.6-10.3); Creatinine Clr Calc Pharmacy 23.9 ml/min; Est GFR (African American) 28.7 ml/min; Est GFR (Non-African American) 24.8 ml/min; Globulin 3.9 gm/dl (2.5-4.0); Potassium 5.4 mmol/L (3.5-5.1); Total Protein 7.9 gm/dl (6.0-8.3)
[2023-07-07 19:58] LABS: Troponin I High Sensitivity 46.9 pg/ml (0-14)
[2023-07-07] MEDS: cefTRIAXone SODIUM 2,000 MG/50 ML BAG IV STA (20:10)
--- NOTE | 2023-07-07 20:29 | CT Scan Report ---
Exam(s): CT ABDOMEN + PELVIS Without Contrast EXAM: CT Abdomen and Pelvis Without Intravenous Contrast CLINICAL HISTORY: Reason for exam: saul, diarrhea. TECHNIQUE: Axial computed tomography images of the abdomen and pelvis without intravenous contrast. CTDI is 25.22 mGy and DLP is 1099.24 mGy-cm. Automated exposure control was utilized for the study. A dose lowering technique was utilized adhering to the principles of ALARA. COMPARISON: No relevant prior studies available. FINDINGS: Lung bases: Unremarkable. No mass. No consolidation. ABDOMEN: Liver: Unremarkable. Gallbladder and bile ducts: Unremarkable. No calcified stones. No ductal dilation. Pancreas: Unremarkable. No ductal dilation. Spleen: Unremarkable. No splenomegaly. Adrenals: Unremarkable. No mass. Kidneys and ureters: No hydronephrosis. There are 2 nonobstructing right renal calcifications, each measuring 3 mm. Stomach and bowel: Distal colonic diverticula without diverticulitis. No bowel obstruction. PELVIS: Appendix: Normal appendix. Bladder: Decompressed urinary bladder, limiting evaluation. No stones. Reproductive: Unremarkable as visualized. Normal uterus. ABDOMEN and PELVIS: Intraperitoneal space: Unremarkable. No free air. No significant fluid collection. Bones/joints: Facet degeneration in the lumbar spine with grade 1 anterolisthesis of L5. No acute fracture or dislocation. Soft tissues: Unremarkable. Vasculature: Atherosclerosis. No aortic aneurysm. Lymph nodes: Unremarkable. No enlarged lymph nodes. IMPRESSION: 1. No acute findings. 2. Nonobstructing calcifications in the right kidney, stones versus vascular calcifications. Electronically signed by: Felix Ortega M.D. 07/07/23 20:28 PM
[2023-07-07] MEDS: SODIUM CHLORIDE 0.9% 500 ML IV ONE (20:49)
--- NOTE | 2023-07-07 21:54 | History & Physical Report ---
Date of Service July 07, 2023 Assessment & Plan (1) MAIA (acute kidney injury): Plan: Creatine= 1.97, baseline= 1 Likely prerenal in the setting of hypovolemia with nausea, vomiting, diarrhea s/p 2L IVF in ED- TTE from 05/12/23 with EF= 35-40%; given low EF will hold on further fluids at present- restart at 0400 @80ml/hr x 1L Hold lisinopril Repeat BMP 0000 and then qAM (2) Hyperkalemia: Plan: - K= 5.4 in the setting of MAIA - no acute EKG changes noted; s/p 2L IVF in ED, IVF as per above - repeat BMP 0000 and then qAM (3) UTI (urinary tract infection): Plan: - UA consistent with infection and pt has symptoms - urine culture pending - continue ceftriaxone (4) Elevated troponin: Plan: - Initial Troponin=46.9 with repeat= 59.1- EKG without acute ischemic changes - suspect demand in the setting of dehydration, nausea, vomiting, diarrhea - denies chest pain, dyspnea on admission- did have some discomfort earlier after 2L IVF bolus- which has sense resolved - plan to trend q6H to peak (5) Nausea vomiting and diarrhea: Plan: - started after last admission - C diff pending - Stool GI panel pending - + Cologuard; needs f/u colonoscopy (6) Diabetes: Plan: - hold metformin, sitagliptin - home dose 18units Lantus daily- will cut to 10units with SSI given poor PO intake - last hemoglobin a1c= 7.7 04/26/23 (7) HTN (hypertension): Plan: - hold lisinopril in the setting of MAIA (8) HLD (hyperlipidemia): Plan: - continue atorvastatin, hold fenofibrate until improvement of creatinine - updated lipid panel from 04/26/23; LDL=75 (9) HFrEF (heart failure with reduced ejection fraction): Plan: - secondary to stres-induced cardiomyopathy - TTE from 05/2023 shows apical and anterior wall akinesis with EF of 35 to 40% - hypovolemic on exam today (10) Stress-induced cardiomyopathy: Plan: - started on amiodarone, metoprolol succinate last visit; plan to continue - started on Eliquis for irregular atrial rhythm; continue Plan Diet: DM2 Code: Full VTE Prophylaxis: Eliquis History of Present Illness Primary Care Provider: RENETTA Pritchett 73 year old with a past medical history of DM2, HTN, HLD, Anemia, prior tobacco use, osteopenia, emphysema presenting with MAIA. Was seen by her PCP today for f/u and outpatient labs noted MAIA with hyperkalemia. She was admitted at the beginning of May with stress-induced cardiomyopathy, tachycardia and PNA. Reportedly since d/c has had diarrhea, nausea/vomiting, decreased PO intake. Denies blood in stool, notes stools have been green. 2-3 BM per day. No known sick contacts. Has also been having dysuria; denies hematuria. In ED K= 5.4 and creatinine= 1.97 (baseline of 1). Trop mildly elevated at 46.9. EKG with NSR, LVH, non-specific ST changes. CT A&P without acute abnormalities. UA +blood, WBC, LE. S/p 2g ceftriaxone. 1.5L NSS given in the ED; pt did note some dysopia/chest discomfort with fluid and repeat troponin and EKG was collected at that time. Allergies Allergy/AdvReac Type Severity Reaction Status Date / Time canagliflozin [From Invokana] AdvReac Intermediate Yeast Verified 07/07/23 21:08 Infection dapagliflozin [From Farxiga] AdvReac Intermediate Yeast Verified 07/07/23 21:08 Infection dulaglutide [From Trulicity] AdvReac Intermediate nausea and Verified 07/07/23 21:08 vomiting Home Medications Medication Instructions Recorded Confirmed Type blood-glucose meter (Blood Glucose #1 ea 04/22/22 07/07/23 Rx Monitoring kit) sitagliptin phosphate 100 mg tablet 100 mg PO DAILY #90 tabs 11/17/22 07/07/23 Rx fluticasone propionate 50 2 spray intranasal DAILY #16 grams 03/08/23 07/07/23 Rx mcg/actuation nasal spray,suspension metformin 500 mg tablet,extended 1,000 mg (2 x 500 mg) PO BID #360 03/17/23 07/07/23 Rx release 24 hr tabs loratadine 10 mg tablet (Allergy 10 mg PO DAILY #90 tabs 03/22/23 07/07/23 Rx Relief (loratadine)) ferrous sulfate 325 mg (65 mg 325 mg PO TID 90 days #270 tabs 04/08/23 07/07/23 Rx iron) tablet calcium carbonate 600 mg-vitamin 1 cap PO DAILY 04/26/23 07/07/23 History D3 5 mcg (200 unit) capsule (Calcium 600 + D(3)) cholecalciferol (vitamin D3) 125 125 mcg PO DAILY 04/26/23 07/07/23 History mcg (5,000 unit) capsule atorvastatin 20 mg tablet 20 mg PO QPM #90 tabs 05/10/23 07/07/23 Rx fenofibrate 54 mg tablet 54 mg PO DAILY #90 tabs 05/10/23 07/07/23 Rx folic acid 20 mg capsule 80 mg PO DAILY 05/17/23 07/07/23 History lisinopril 10 mg tablet 5 mg PO DAILY 05/17/23 07/07/23 History amiodarone 200 mg tablet 200 mg PO Q2D 1 month #45 tabs 06/01/23 07/07/23 Rx apixaban 5 mg tablet (Eliquis) 5 mg PO BID #180 tabs 06/01/23 07/07/23 Rx magnesium oxide 400 mg (241.3 mg 400 mg PO QAM #90 tabs 06/01/23 07/07/23 Rx magnesium) tablet metoprolol succinate 50 mg 50 mg PO QAM #90 tabs 06/01/23 07/07/23 Rx tablet,extended release 24 hr pen needle, diabetic 31 gauge x #100 ea 06/13/23 07/07/23 Rx 1/4" insulin glargine 100 unit/mL (3 18 unit (0.18 mL) subcut QPM #18 mL 06/29/23 07/07/23 Rx mL) subcutaneous pen (Basaglar KwikPen U-100 Insulin) cefdinir 300 mg capsule 300 mg PO BID #7 caps 07/09/23 Rx Past Med/Surg History Medical History Positive colorectal cancer screening using Cologuard test Emphysema lung Vitamin B 12 deficiency Pulmonary nodule Osteopenia after menopause Anemia Tobacco dependence History of bleeding disorder HLD (hyperlipidemia) HTN (hypertension) Diabetes Surgical History No pertinent past surgical history Family History Mother Diabetes Hypertension Father Diabetes Hypertension Sister Diabetes Hypertension Breast cancer, Onset Age: 38 Brother Diabetes Hypertension Denies family history of Ovarian cancer Prostate cancer Myocardial infarction Colorectal cancer Social History Smoking Status: Never smoker Tobacco Type: Cigarettes Age Quit Using Tobacco: 70; packs per day: 0.5; Second Hand Exposure: Yes; Do You Dip or Chew Tobacco: No; Hx Alcohol Use: No Hx Substance Use: No Preferred Language: Occitan Communication Ability: Effective Visual Impairment: No Limitations Hearing Ability: Normal Motor Vehicle License Clerk Required: No Beliefs That Will Affect Care: None marital status: Current Living Situation: Spouse current occupational status: retired current occupation: housewife or homemaker How many Children do You have: 3 How many Children do You have Comment: able to assist with care. Children are also local and able to assist if needed. Feels Safe at Home: Yes Childhood Exposure to Second-Hand Smoke: No Diet: regular Diet Comment: regular caffeine: Yes during the past year weight has: remained stable Dental Care, Regularly: Yes Physical Activity Frequency: Daily Seatbelt Use: always Sunscreen Use: Yes Assistive Devices: Cane, Glasses and Walker Review of Systems Review of Systems: As per above Physical Exam Physical Exam: Constitutional: well-appearing, no acute distress HEENT: NCAT, no conjunctival injection CV: regular rhythm, no murmur appreciated, extremities well-perfused, 1+ LE edema Resp: CTABL, no wheezes/rales/rhonchi appreciated, no increased work of breathing GI: soft, nondistended, nontender, BS normoactive MSK: no gross deformities appreciated Skin: warm, dry, no rash appreciated Neuro: alert, oriented, no focal neurologic deficit appreciated Results & Data Results & Data Vital Signs (Past 12 Hours) Vital Signs Temp Pulse Pulse Resp BP BP Pulse Ox 07/07/23 19:51 94 07/07/23 19:51 89 18 142/78 H 96 07/07/23 19:21 81 07/07/23 18:44 36.8 C 107 H 20 144/99 H 97 O2 Del Method 07/07/23 19:51 Room Air 07/07/23 19:51 07/07/23 19:21 07/07/23 18:44 Room Air Supervising Physician Co-Signing Physician Notes Attending addendum: I have physically seen this patient, have supervised the medical residents activities, and agree with the H&P unless as otherwise noted. Assessment and Plan: Acute kidney injury/hyperkalemia- Creatinine 1.97, with baseline 0.98 Potassium 5.4 Hold lisinopril Received 2 L normal saline from the ED IV fluids to continue as noted Recheck laboratories at midnight and in the a.m. Urinary tract infection- Follow urine culture and sensitivity Continue ceftriaxone Elevated troponin- Troponin 46.9, with follow-up 59.1, with normal EKG Likely supply/demand mismatch Recheck laboratories in a.m. Nausea/vomiting/diarrhea- C. difficile and stool PCR studies pending Diabetes mellitus- Hold metformin and Sitagliptin Lantus with SSI as noted Recheck laboratories in a.m. Remaining orders and notations as noted Resident Activity Tracking Resident Involvement: Resident Care Provided Care Provided: Adult Hospital Medicine
[2023-07-08 01:17] LABS: BUN Creatinine Ratio 21.2 (10-20); Calcium 8.5 mg/dl (8.6-10.3); Creatinine Clr Calc Pharmacy 26.4 ml/min; Est GFR (African American) 32.2 ml/min; Est GFR (Non-African American) 27.8 ml/min; Potassium 4.6 mmol/L (3.5-5.1)
[2023-07-08] MEDS ORDERED: GLUCOSE 40% GEL 15 GM TUBE PO PRN (03:55)
[2023-07-08] MEDS ORDERED: CARBOHYDRATES FOR HYPOGLYCEMIA PO PRN (03:55)
[2023-07-08] MEDS ORDERED: DEXTROSE 50% 50 ML SYRINGE IV PRN (03:55)
[2023-07-08] MEDS ORDERED: GLUCOSE 10 TAB/TUBE PO PRN (03:55)
[2023-07-08] MEDS ORDERED: GLUCAGON FOR INJ 1 MG VIAL SQ PRN (03:55)
[2023-07-08] MEDS: CALCIUM CARBONATE 500 MG CHEWABLE TAB PO ONE (04:11)
[2023-07-08 04:28] LABS: Basophils # (auto) 0.05 K/uL (0.00-0.20); Basophils % (auto) 0.8 %; Eosinophils % (auto) 4.6 %; Hematocrit (blood only) 28.3 % (37.0-47.0); Hemoglobin 9.1 g/dl (12.0-16.0); Immature Granulocytes # (auto) 0.01 K/uL (0.01-0.20); Immature Granulocytes % (auto) 0.2 %; Lymphocytes # (auto) 1.95 K/uL (1.20-3.40); Lymphocytes % (auto) 29.6 %; Mean Corpuscular Hemoglobin 28.4 pg (25.0-34.0); Mean Corpuscular Hgb Conc 32.2 g/dL (32.0-36.0); Mean Corpuscular Volume 88.4 fL (80.0-100.0); Mean Platelet Volume 10.8 fL (9.4-12.4); Monocytes # (auto) 0.73 K/uL (0.11-0.59); Monocytes % (auto) 11.1 %; Neutrophils # (auto) 3.55 K/uL (1.40-6.50); Neutrophils % (auto) 53.7 %; Platelet Count 287 K/uL (130-400); RDW Coefficient of Variation 15.1 % (11.5-14.5); White Blood Count 6.59 K/ul (4.8-10.8)
[2023-07-08 04:41] LABS: BUN Creatinine Ratio 21.1 (10-20); Calcium 8.4 mg/dl (8.6-10.3); Est GFR (African American) 33.1 ml/min; Est GFR (Non-African American) 28.6 ml/min; Magnesium 1.2 mg/dl (1.7-2.4); Potassium 4.9 mmol/L (3.5-5.1)
[2023-07-08] MEDS: SODIUM CHLORIDE 0.9% 1,000 ML IV SCH (05:57)
--- NOTE | 2023-07-08 07:39 | XRay Report ---
XR chest 1V portable HISTORY: Chest pain, nonspecific COMPARISON: Chest 05/12/2023. FINDINGS: No pneumothorax. No pleural effusions. The cardiac silhouette remains mildly enlarged. Ther e is mild eventration of the right hemidiaphragm, unchanged. Otherwise, the lungs are clear. No evide nce for pulmonary edema. IMPRESSION: No acute process. ACT 112: Negative or not required by law. Electronically signed by: Caio Rodas M.D. 07/08/2023 7:38 AM
[2023-07-08] MEDS: CALCIUM 600MG + VIT D 400 IU TAB PO SCH (09:07)
[2023-07-08] MEDS: CHOLECALCIFEROL 125 MCG (5,000 UNITS) TAB PO SCH (09:07)
[2023-07-08] MEDS: LORATADINE 10 MG TAB PO SCH (09:07)
[2023-07-08] MEDS: FLUTICASONE PROPIONATE NA SPR 16 GM BTL SCH (09:08)
[2023-07-08] MEDS: METOPROLOL SUCC 50MG EXT REL TAB PO SCH (09:08)
[2023-07-08] MEDS: MAGNESIUM OXIDE 400 MG TAB PO SCH (09:08)
[2023-07-08] MEDS: INSULIN ASPART PER UNIT CHARGE SC SCH (09:13)
[2023-07-08] MEDS: APIXABAN 5 MG TABLET PO SCH (09:26)
[2023-07-08] MEDS: SODIUM CHLORIDE 0.9% 500 ML IV SCH (18:25)
[2023-07-08] MEDS: LANTUS PER UNIT CHARGE SQ SCH (21:38)
[2023-07-08] MEDS: ATORVASTATIN 20 MG TAB PO SCH (21:38)
[2023-07-08] MEDS: cefTRIAXone SODIUM 1,000 MG/50 ML BAG IV SCH (21:39)
--- NOTE | 2023-07-08 22:04 | Hospitalist Progress Note ---
Date of Service July 08, 2023 Assessment & Plan (1) MAIA (acute kidney injury): Plan: Creatine= 1.97, baseline= 1 Likely prerenal in the setting of hypovolemia with nausea, vomiting, diarrhea s/p 2L IVF in ED- TTE from 05/12/23 with EF= 35-40%; given low EF will hold on f urther fluids at present- restart at 0400 @80ml/hr x 1L Hold lisinopril ON 07/07 creatinine is improving. will recheck in AM. (2) Hyperkalemia: Plan: - K= 5.4 in the setting of MAIA - no acute EKG changes noted; s/p 2L IVF in ED, IVF as per above - repeat BMP 0000 and then qAM Potassium improved on 07/07 (3) UTI (urinary tract infection): Plan: - UA consistent with infection and pt has symptoms - urine culture pending - continue ceftriaxone (4) Elevated troponin: Plan: - Initial Troponin=46.9 with repeat= 59.1- EKG without acute ischemic changes - suspect demand in the setting of dehydration, nausea, vomiting, diarrhea - denies chest pain, dyspnea on admission- did have some discomfort earlier after 2L IVF bolus- which has sense resolved - plan to trend q6H to peak (5) Nausea vomiting and diarrhea: Plan: - started after last admission - C diff pending - Stool GI panel pending - + Cologuard; needs f/u colonoscopy (6) Diabetes: Plan: - hold metformin, sitagliptin - home dose 18units Lantus daily- will cut to 10units with SSI given poor PO intake - last hemoglobin a1c= 7.7 04/26/23 (7) HTN (hypertension): Plan: - hold lisinopril in the setting of MAIA (8) HLD (hyperlipidemia): Plan: - continue atorvastatin, hold fenofibrate until improvement of creatinine - updated lipid panel from 04/26/23; LDL=75 (9) HFrEF (heart failure with reduced ejection fraction): Plan: - secondary to stres-induced cardiomyopathy - TTE from 05/2023 shows apical and anterior wall akinesis with EF of 35 to 40% - hypovolemic on exam today (10) Stress-induced cardiomyopathy: Plan: - started on amiodarone, metoprolol succinate last visit; plan to continue - started on Eliquis for irregular atrial rhythm; continue Plan Diet: DM2 Code: Full VTE Prophylaxis: Eliquis Admission and Anticipated Discharge Date Admission Date: July 07, 2023 Subjective Patient reports feeling better. Review of Systems Review of Systems: All systems reviewed & are unremarkable except as noted in HPI & below Physical Exam Physical Exam: Constitutional: well-appearing, no acute distress HEENT: NCAT, no conjunctival injection CV: regular rhythm, no murmur appreciated, extremities well-perfused, 1+ LE edema Resp: CTABL, no wheezes/rales/rhonchi appreciated, no increased work of breathing GI: soft, nondistended, nontender, BS normoactive MSK: no gross deformities appreciated Skin: warm, dry, no rash appreciated Neuro: alert, oriented, no focal neurologic deficit appreciated Results & Data Results & Data Vital Signs (Past 12 Hours) Vital Signs Temp Pulse Resp BP Pulse Ox 07/08/23 20:14 36.8 C 57 L 16 145/79 H 96 07/08/23 16:30 57 L 07/08/23 16:10 36.8 C 57 L 18 146/83 H 98 07/08/23 14:29 60 17 130/62 98 PG Care Time/CCT Total # of Minutes Spent Total Time Spent with Patient: Total time spent is greater than 50% in coordination of care (as documented) at patient's floor/unit and/or counseling patient: Coding Level of Care Code 86701 SUB INP/OBS CARE 2/35MIN Diagnoses MAIA (acute kidney injury) N17.9 Hyperkalemia E87.5 UTI (urinary tract infection) N39.0 Elevated troponin R79.89 Nausea vomiting and diarrhea R11.2; R19.7 Diabetes E11.9 HTN (hypertension) I10 HLD (hyperlipidemia) E78.5 HFrEF (heart failure with reduced ejection fraction) I50.20 Stress-induced cardiomyopathy I51.81
[2023-07-09 06:27] LABS: Basophils # (auto) 0.05 K/uL (0.00-0.20); Eosinophils # (auto) 0.34 K/uL (0.00-0.50); Eosinophils % (auto) 6.7 %; Hematocrit (blood only) 29.3 % (37.0-47.0); Hemoglobin 9.3 g/dl (12.0-16.0); Immature Granulocytes # (auto) 0.01 K/uL (0.01-0.20); Immature Granulocytes % (auto) 0.2 %; Lymphocytes # (auto) 1.85 K/uL (1.20-3.40); Lymphocytes % (auto) 36.6 %; Mean Corpuscular Hgb Conc 31.7 g/dL (32.0-36.0); Mean Corpuscular Volume 88.3 fL (80.0-100.0); Mean Platelet Volume 10.8 fL (9.4-12.4); Monocytes # (auto) 0.54 K/uL (0.11-0.59); Monocytes % (auto) 10.7 %; Neutrophils # (auto) 2.27 K/uL (1.40-6.50); Neutrophils % (auto) 44.8 %; Platelet Count 273 K/uL (130-400); RDW Coefficient of Variation 15.3 % (11.5-14.5); RDW Standard Deviation 49.5 fL (36.4-46.3); Red Blood Count 3.32 M/uL (4.20-5.40); White Blood Count 5.06 K/ul (4.8-10.8)
[2023-07-09 06:57] LABS: BUN Creatinine Ratio 22.9 (10-20); Creatinine Clr Calc Pharmacy 33.7 ml/min; Est GFR (African American) 43.4 ml/min; Est GFR (Non-African American) 37.4 ml/min; Magnesium 1.4 mg/dl (1.7-2.4); Potassium 4.5 mmol/L (3.5-5.1)
[2023-07-09] MEDS: AMIODARONE 200 MG TAB PO SCH (09:18)
--- NOTE | 2023-07-09 11:13 | Discharge Summary ---
Date of Service July 09, 2023 Admission HPI Per Admitting Provider 73 year old with a past medical history of DM2, HTN, HLD, Anemia, prior tobacco use, osteopenia, emphysema presenting with MAIA. Was seen by her PCP today for f/u and outpatient labs noted MAIA with hyperkalemia. She was admitted at the beginning of May with stress-induced cardiomyopathy, tachycardia and PNA. Reportedly since d/c has had diarrhea, nausea/vomiting, decreased PO intake. Denies blood in stool, notes stools have been green. 2-3 BM per day. No known sick contacts. Has also been having dysuria; denies hematuria. In ED K= 5.4 and creatinine= 1.97 (baseline of 1). Trop mildly elevated at 46.9. EKG with NSR, LVH, non-specific ST changes. CT A&P without acute abnormalities. UA +blood, WBC, LE. S/p 2g ceftriaxone. 1.5L NSS given in the ED; pt did note some dysopia/chest discomfort with fluid and repeat troponin and EKG was collected at that time. Principal Diagnosis acute kidney injury Discharge Exam Constitutional: well-appearing, no acute distress HEENT: NCAT, no conjunctival injection CV: regular rhythm, no murmur appreciated, extremities well-perfused, 1+ LE edema Resp: CTABL, no wheezes/rales/rhonchi appreciated, no increased work of breathing GI: soft, nondistended, nontender, BS normoactive MSK: no gross deformities appreciated Skin: warm, dry, no rash appreciated Neuro: alert, oriented, no focal neurologic deficit appreciated Discharge Data Allergies Allergy/AdvReac Type Severity Reaction Status Date / Time canagliflozin [From Invokana] AdvReac Intermediate Yeast Verified 07/07/23 21:08 Infection dapagliflozin [From Farxiga] AdvReac Intermediate Yeast Verified 07/07/23 21:08 Infection dulaglutide [From Trulicity] AdvReac Intermediate nausea and Verified 07/07/23 21:08 vomiting Consultations 07/07/23 21:04 ED Decision to Admit Stat Ordered Studies 07/07/23 19:03 CT abd pelvis wo con Stat Hospital Course (1) MAIA (acute kidney injury): Creatine= 1.97, baseline= 1 Likely prerenal in the setting of hypovolemia with nausea, vomiting, diarrhea Resolved with IVF (2 liters) held lisnipril. (2) Hyperkalemia: - K= 5.4 in the setting of MAIA - no acute EKG changes noted; s/p 2L IVF in ED, IVF as per above Potassium improved on 07/07 with above treatment. (3) UTI (urinary tract infection): - UA consistent with infection and pt has symptoms - urine culture: contaminated -will complete treatment course with cefdinir as patient's symptoms improved after 2 doses of ceftriaxone (4) Elevated troponin: - Initial Troponin=46.9 with repeat= 59.1 (peak)- EKG without acute ischemic changes - suspect demand in the setting of dehydration, nausea, vomiting, diarrhea - denies chest pain, dyspnea on admission- did have some discomfort earlier after 2L IVF bolus- which has sense resolved - (5) Nausea vomiting and diarrhea: - started after last admission - C diff pending - Stool GI panel pending - + Cologuard; needs f/u colonoscopy (6) Diabetes: - hold metformin, sitagliptin - home dose 18units Lantus daily- will cut to 10units with SSI given poor PO intake - last hemoglobin a1c= 7.7 04/26/23 (7) HTN (hypertension): - hold lisinopril in the setting of MAIA (8) HLD (hyperlipidemia): - continue atorvastatin, hold fenofibrate until improvement of creatinine - updated lipid panel from 04/26/23; LDL=75 (9) HFrEF (heart failure with reduced ejection fraction): - secondary to stres-induced cardiomyopathy - TTE from 05/2023 shows apical and anterior wall akinesis with EF of 35 to 40% (10) Stress-induced cardiomyopathy: - started on amiodarone, metoprolol succinate last visit; plan to continue - started on Eliquis for irregular atrial rhythm; continue Total Time Total Time Spent Total Time Spent (In Minutes): 32 Discharge Plan Discharge Items Patient Disposition: Home - Self-Care Reason For Visit: MAIA Discharge Diagnosis: acute kidney injury Activity: Resume your previous activity Non-emergency contact: Primary Care Provider Call non-emergency contact if: you have any medication questions Follow-up/Referrals: Harshal Ruelas CRNP [Primary Care Provider] - 07/19/23 8:20 am Diet: Carb Consistent or DM2 and Heart Healthy Ambulatory Orders: Basic Metabolic Panel (Routine) Timeframe: 2 Days Location: Determined by Patient Ordered By: Antonio Killian Attending Provider Instructions: You came in with acute kidney injury. It appears this was precipitated by dehydration with lisinopril use. This caused an increase in your potassium. As your kidneys improved, your potassium did as well. Your numbers are not at baseline yet, but they are trending in the right direction. We will recheck your numbers on Tuesday or Tuesday. You will also be on antibiotics for 3 and a half more days or 7 doses starting tonight to treat your urinary infection. Pending Studies at Discharge: No Stand-Alone Forms: [facility] [employer], Smoking Cessation Medications and DC Order Prescriptions: New cefdinir 300 mg capsule 300 mg PO BID Qty: 7 0RF Rx Instructions: First dose on 07/09 2023 PM Continued sitagliptin phosphate 100 mg tablet 100 mg PO DAILY Qty: 90 3RF Hold Instructions: Started on Trulicity 06/11/20 fluticasone propionate 50 mcg/actuation spray,suspension 2 spray intranasal DAILY Qty: 16 5RF Rx Instructions: administer into each nostril metformin 500 mg tablet extended release 24 hr 1,000 mg PO BID Qty: 360 1RF Rx Instructions: REGULAR NOT OSM OR MOD loratadine [Allergy Relief (loratadine)] 10 mg tablet 10 mg PO DAILY Qty: 90 1RF ferrous sulfate 325 mg (65 mg iron) tablet 325 mg PO TID 90 Days Qty: 270 1RF Hold Instructions: per pt also on hold [facility] fenofibrate 54 mg tablet 54 mg PO DAILY Qty: 90 1RF atorvastatin 20 mg tablet 20 mg PO QPM Qty: 90 1RF (DME) pen needle, diabetic 31 gauge x 1/4" needle See Rx Instructions .ROUTE .MEDSUPPLY Qty: 100 1RF Rx Instructions: As directed insulin glargine [Basaglar KwikPen U-100 Insulin] 100 unit/mL (3 mL) insulin pen 18 unit subcut QPM Qty: 18 4RF Calcium 600 + D(3) 600 mg-5 mcg (200 unit) capsule 1 cap PO DAILY cholecalciferol (vitamin D3) 125 mcg (5,000 unit) capsule 125 mcg PO DAILY (DME) blood-glucose meter [Blood Glucose Monitoring] Kit See Rx Instructions .ROUTE .MEDSUPPLY Qty: 1 0RF Rx Instructions: As directed amiodarone 200 mg tablet 200 mg PO Q2D 30 Days Qty: 45 1RF Eliquis 5 mg tablet 5 mg PO BID Qty: 180 1RF metoprolol succinate 50 mg tablet extended release 24 hr 50 mg PO QAM Qty: 90 3RF magnesium oxide 400 mg (241.3 mg magnesium) tablet 400 mg PO QAM Qty: 90 3RF folic acid 20 mg capsule 80 mg PO DAILY Rx Instructions: Pt states she dont take on a regular dose schedule. Held lisinopril 10 mg tablet 5 mg PO DAILY Hold Instructions: Resume on 07/18/23. may resume sooner if kidney numbers improve Rx Instructions: take 1/2 tab daily. Discharge Orders: Discharge Order (Routine); Ordered 07/09/23 Ordered By: Antonio Willis Admission Data Admit Date/Time: 07/07/23 21:14 Attending Provider: Antonio Willis Admit Provider: Kesha Nelson Primary Care Provider: Harshal Ruelas Other Providers: Kesha Nelson Other Interventions: Discharge Summary Assessment (RN) Last Done: 07/09/23 12:14 Coding Level of Care Code 41887 INP/OBS DISCH >30 MIN Diagnoses MAIA (acute kidney injury) N17.9 Hyperkalemia E87.5 UTI (urinary tract infection) N39.0 Elevated troponin R79.89 Nausea vomiting and diarrhea R11.2; R19.7 Diabetes E11.9 HTN (hypertension) I10 HLD (hyperlipidemia) E78.5 HFrEF (heart failure with reduced ejection fraction) I50.20 Stress-induced cardiomyopathy I51.81
--- NOTE | 2023-07-09 20:35 | Billing Data ---
Date of Service July 09, 2023 Coding Level of Care Code 83170 INT INP/OBS CARE
--- NOTE | 2023-07-10 21:32 | Electrocardiogram Report ---
Test Reason : Blood Pressure : / mmHG Vent. Rate : 092 BPM Atrial Rate : 092 BPM P-R Int : 150 ms QRS Dur : 132 ms QT Int : 366 ms P-R-T Axes : 038 -26 129 degrees QTc Int : 452 ms Normal sinus rhythm Left bundle branch block Abnormal ECG When compared with ECG of 09-MAY-2023 23:29, No significant change Confirmed by Thai Sims ([id number]) on 07/10/2023 9:32:35 PM Referred By: REFERRED SELF Confirmed By:Thai Sims
--- NOTE | 2023-07-10 21:35 | Electrocardiogram Report ---
Test Reason : Blood Pressure : / mmHG Vent. Rate : 106 BPM Atrial Rate : 106 BPM P-R Int : 158 ms QRS Dur : 128 ms QT Int : 356 ms P-R-T Axes : 045 -25 136 degrees QTc Int : 472 ms Sinus tachycardia Left bundle branch block Abnormal ECG When compared with ECG of 07-JUL-2023 18:58, (unconfirmed) No significant change was found Confirmed by Thai Sims ([id number]) on 07/10/2023 9:35:17 PM Referred By: REFERRED SELF Confirmed By:Thai Sims
== END 2023-07-09 13:38 | disposition home or self-care (01) | DRG 683 ==
LOC: ED 18:39 → SUATTDRO 21:14 → EDINP 21:14 → 2W 23:26